=== PATIENT | female | born 1945 | race Two or more races ===

== ENCOUNTER → 2016-06-08 | Outpatient (CLI) | payer MEDICARE, OTHER | LOC: RAD 16:03 | PROVIDERS: ATTEND Internal Medicine | DX: C34.12 Malignant neoplasm of upper lobe, left bronchus or lung (principal) | CPT/HCPCS: 78815; A9552 ==

== ENCOUNTER → 2016-08-18 | Outpatient (CLI) | payer MEDICARE, OTHER ==
--- NOTE | 2016-08-18 15:52 | WOMENS IMAGING REPORT ---
EXAM DESCRIPTION: BILAT SCREENING MAMMO W/CAD COMPLETED DATE/TIME: 08/18/2016 1:53 pm REASON FOR STUDY: ROUTINE SCREEENING; Z12.31 Z12.31 ENCNTR SCREEN MAMMOGRAM FOR MALIGNANT NEOPLASM OF RADHA COMPARISON: 02/17/2011 TECHNIQUE: Standard craniocaudal and mediolateral oblique views of each breast recorded using Weevea l acquisition. LIMITATIONS: None. FINDINGS: Findings present which are benign by mammographic criteria. No suspicious masses, calcifi cations or architectural distortion. Pertinent benign findings: Benign left breast calcifications Read with the assistance of CAD. .[facility] - R2 Cenova Version 1.3 .[facility] Imaging - R2 Cenova Version 1.3 .[facility] Imaging - R2 Cenova Version 2.4 .[facility] - R2 Cenova Version 2.4 .[facility] - R2 Organ Recovery Coordinator Version 9.2 Benign mammographic findings may include one or more of the following: Smooth masses, popcorn/rim/co arse calcifications, asymmetries, post-procedure changes, and lesions with long-standing stability. IMPRESSION: BENIGN MAMMOGRAPHIC FINDINGS. BIRADS 2 BREAST DENSITY: d. The breasts are extremely dense, which lowers the sensitivity of mammography. BIRAD: 2 BENIGN FINDING(S) RECOMMENDATION: ROUTINE SCREENING Please consider bilateral screening tomosynthesis and August 2017 given extremely dense fibroglandular tissue COMMENT: The patient has been notified of the results by letter per SA requirements. Additional no tification policies are in place for contacting patient with suspicious or incomplete findings. Quality ID #[id number]: The [employer] recommends an annual screening mammogram for women aged 40 years or over. This facility utilizes a reminder system to ensure that all patients receive reminder letters, and/or direct phone calls for appointments. This includes reminders for routine scr eening mammograms, diagnostic mammograms, or other Breast Imaging Interventions when appropriate. Th is patient will be placed in the appropriate reminder system. The [employer] (ACR) has developed recommendations for screening MRI of the breast s in certain patient populations, to be used in conjunction with mammography. Breast MRI surveillanc e may be appropriate for women with more than 20% lifetime risk of developing breast cancer as deter mined by genetic testing, significant family history of the disease, or history of mantle radiation f or Hodgkins Disease. ACR Practice Guidelines 2008. TECHNICAL DOCUMENTATION: FINDING NUMBER: (1) ASSESSMENT: (1) JOB ID: [id number] [facility] [employer]- All Rights Reserved
== END ==
LOC: WI 13:12
PROVIDERS: ATTEND Internal Medicine
DX: Z12.31 Encounter for screening mammogram for malignant neoplasm of breast (principal)
CPT/HCPCS: 77067; G0202

== ENCOUNTER → 2016-08-31 | Outpatient (CLI) | payer MEDICARE, OTHER ==
--- NOTE | 2016-08-31 21:13 | RADIOLOGY REPORT (SQ) ---
EXAM DESCRIPTION: PET CT SKULL/THIGH COMPLETED DATE/TIME: 08/31/2016 6:49 pm REASON FOR STUDY: LUNG CANCER C34.12 MALIGNANT NEOPLASM OF UPPER LOBE, LEFT BRONCHUS OR PIEDAD COMPARISON: Prior PET-CT 01/13/2014, 02/17/2016, 06/10/2016 RADIONUCLIDE AND DOSE: 8.9 mCi F18 FDG The route of agent administration: Intravenous FASTING BLOOD SUGAR: 85 mg/dl CONTRAST TYPE AND DOSE: No CT contrast given. TECHNIQUE: Blood glucose level was verified. Above dose of FDG was injected intravenously. 2-D seg mented attenuation correction images were obtained from the base of the skull to the midthighs. Nonc ontrast CT images were obtained for attenuation correction and fusion with emission images. CT image s were performed without oral or intravenous contrast and are not sensitive for parenchymal lesions. A series of overlapping emission PET images were obtained. Images reviewed and manipulated at [facility] work station by the radiologist. Images stored on PACS. LIMITATIONS: None. FINDINGS: HEAD AND NECK: No areas of abnormal metabolic activity in the soft tissues of the head and neck. CHEST: A new mass is present in the right middle lobe, 3 x 2.5 cm in size with SUV 6.7. Increase in size of the nodule in the posterior right lower lobe now 1.4 x 1.7 cm in size with SUV 1. 7 (was 0.8 cm and non metabolic on 06/08/2016). Increase in size and activity of a 1.9 x 1.5 cm nodule in the superior segment right lower lobe with SUV 5.6 (was 1.4 x 0.8 cm in size SUV 4.3 on 06/08/2016). There is increase in metabolic activity along the right lower hilar region with SUV 7.3 (was SUV 4.6 on 06/08/2016). There is stable scarring in the right upper lobe at the intersection of the major and minor fissures with SUV 1.3 at baseline. There is a stable subcentimeter right upper anterior hilar lymph node with SUV of 2.8 unchanged from 06/08/2016. No pleural effusions. No worrisome left lung findings. ABDOMEN AND PELVIS: No areas of abnormal metabolic activity in the abdomen or pelvis. Expected physi ologic activity is present in the genitourinary system and bowel. PROXIMAL LOWER EXTREMITIES: No areas of abnormal metabolic activity in the soft tissues of the lower extremities. BONES: No abnormal metabolic activity in the visualized skeleton. ADDITIONAL CT FINDINGS: There is an intracranial aneurysm coil in the anterior communicating artery r egion, coronary artery calcification, degenerative disc changes lumbar spine, and atherosclerotic aor toiliac calcification. OTHER: Blood pool activity 1.8 SUV, liver activity 2.2 SUV IMPRESSION: Progression of disease in the right chest TECHNICAL DOCUMENTATION: JOB ID: [id number] [employer]- All Rights Reserved
== END ==
LOC: RAD 15:29
PROVIDERS: ATTEND Internal Medicine
DX: C34.12 Malignant neoplasm of upper lobe, left bronchus or lung (principal)
CPT/HCPCS: 78815; A9552

== ENCOUNTER → 2016-09-12 | Outpatient (CLI) | payer MEDICARE, OTHER ==
--- NOTE | 2016-09-12 10:53 | RADIOLOGY REPORT (SQ) ---
EXAM DESCRIPTION: CHEST PA/LATERAL COMPLETED DATE/TIME: 09/12/2016 10:08 am REASON FOR STUDY: COUGH COMPARISON: 01/27/2014 EXAM PARAMETERS: NUMBER OF VIEWS: two views TECHNIQUE: Digital Frontal and Lateral radiographic views of the chest acquired. RADIATION DOSE: NA LIMITATIONS: none FINDINGS: LUNGS AND PLEURA: There is the appearance of scarring in the right lung. Overall there is marked improvement compared to the earlier study. There is no acute pulmonary infiltrate or pleural effusion. MEDIASTINUM AND HILAR STRUCTURES: No masses or contour abnormalities. HEART AND VASCULAR STRUCTURES: Heart normal size. No evidence for failure. BONES: No acute findings. HARDWARE: None in the chest. OTHER: No other significant finding. IMPRESSION: There appears to be scarring in the right mid lung with dramatic improvement compared to the study 2013. TECHNICAL DOCUMENTATION: JOB ID: [id number] [employer]- All Rights Reserved
== END ==
LOC: OD 09:43
PROVIDERS: ATTEND Internal Medicine
DX: R05 Cough (principal)
CPT/HCPCS: 71020

== ENCOUNTER → 2016-12-14 | Outpatient (CLI) | payer MEDICARE, OTHER ==
--- NOTE | 2016-12-15 08:45 | RADIOLOGY REPORT (SQ) ---
EXAM DESCRIPTION: PET CT SKULL/THIGH COMPLETED DATE/TIME: 12/14/2016 8:04 pm REASON FOR STUDY: LUNG CANCER C34.12 MALIGNANT NEOPLASM OF UPPER LOBE, LEFT BRONCHUS OR PIEDAD COMPARISON: 08/31/2016 RADIONUCLIDE AND DOSE: 10.8 mCi F18 FDG The route of agent administration: Intravenous FASTING BLOOD SUGAR: 88 mg/dl CONTRAST TYPE AND DOSE: No CT contrast given. TECHNIQUE: Blood glucose level was verified. Above dose of FDG was injected intravenously. 2-D seg mented attenuation correction images were obtained from the base of the skull to the midthighs. Nonc ontrast CT images were obtained for attenuation correction and fusion with emission images. CT image s were performed without oral or intravenous contrast and are not sensitive for parenchymal lesions. A series of overlapping emission PET images were obtained. Images reviewed and manipulated at [facility] work station by the radiologist. Images stored on PACS. LIMITATIONS: None. FINDINGS: HEAD AND NECK: No areas of abnormal metabolic activity in the soft tissues of the head and neck. CHEST: Middle lobe mass has increased in size now 4.6 x 4.2 cm and 12 SUV. Previously described nodu les in the right lower lobe have all increased in size and are hypermetabolic. Stable increased meta bolic activity right lower hilum. No bulky adenopathy. ABDOMEN AND PELVIS: New hypermetabolic lesion measuring just over 1 cm in the dome of the liver measu ring 5.8 SUV. PROXIMAL LOWER EXTREMITIES: No areas of abnormal metabolic activity in the soft tissues of the lower extremities. BONES: No abnormal metabolic activity in the visualized skeleton. ADDITIONAL CT FINDINGS: No additional significant findings on the noncontrast CT images. OTHER: No other significant findings. IMPRESSION: 1. Disease progression in the chest. 2. New liver metastasis. TECHNICAL DOCUMENTATION: JOB ID: [id number] [employer]- All Rights Reserved
== END ==
LOC: RAD 15:52
PROVIDERS: ATTEND Physician Assistant
DX: C34.12 Malignant neoplasm of upper lobe, left bronchus or lung (principal); C78.7 Secondary malignant neoplasm of liver and intrahepatic bile duct
CPT/HCPCS: 78815; A9552

== ENCOUNTER 2016-12-24 08:44 | Day surgery (SDC) | payer MEDICARE, OTHER ==
[2016-12-24 09:19] LABS: HEMATOCRIT 34.4 % (36.0-47.0); HEMOGLOBIN 11.5 g/dL (12.0-15.5); HGB HCT DIFFERENCE 0.1; MEAN CORPUSCULAR HEMOGLOBIN 32.3 pg (27.0-33.4); MEAN CORPUSCULAR HGB CONC 33.5 g/dL (32.0-36.0); MEAN CORPUSCULAR VOLUME 96 fl (80-97); RED BLOOD COUNT 3.58 10^6/uL (3.72-5.28); RED CELL DISTRIBUTION WIDTH 14.3 % (11.5-14.0); WHITE BLOOD COUNT 4.3 10^3/uL (4.0-10.5)
[2016-12-24 09:29] LABS: PARTIAL THROMBOPLASTIN TIME 29.5 SEC (23.5-35.8); PROTHROMBIN TIME 11.7 SEC (11.4-15.4)
[2016-12-24 09:41] LABS: BLOOD UREA NITROGEN 21 mg/dL (7-20); CREATININE RESULT 0.95 mg/dL (0.52-1.25)
[2016-12-24] MEDS ORDERED: FENTANYL CITRATE INJ/PF 100 MCG/2 ML AMPUL ONE (10:39)
[2016-12-24] MEDS ORDERED: MIDAZOLAM 2 MG/2 ML INJ ONE (10:39)
--- NOTE | 2016-12-24 12:02 | RADIOLOGY REPORT (SQ) ---
EXAM DESCRIPTION: CT BIOPSY LUNG/MEDIASTINUM; CT NEEDLE PLACEMENT COMPLETED DATE/TIME: 12/24/2016 11:34 am; 12/24/2016 11:33 am REASON FOR STUDY: MALIGNANT NEOPLASM OF UPPER LOBE C34.12 MALIGNANT NEOPLASM OF UPPER LOBE, LEFT BR ONCHUS OR PIEDAD Z79.01 [facility] (CURRENT) USE OF ANTICOAGULANTS COMPARISON: PET-CT 12/14/2016 TECHNIQUE: CT guided biopsy of the anterior right upper lobe performed with conscious sedation. CT Fluoroscopy Time: 5.[address] scanners at this facility use dose modulation, iterative reconstruction, and/or weight based d osing when appropriate to reduce radiation dose to as low as reasonably achievable (ALARA). [facility]: Dose Right [facility]: CareDose [facility]: Dose Right [facility]: Teradose 4D [facility]: [employer] RADIATION DOSE: mGy. FINDINGS: The procedure was discussed with the patient and the patient agreed to the procedure. Prio r to the procedure, a time out was performed to verify the patient's identity and planned procedure. IV sedation was administered and physician direction by the registered nurse using 1 milligrams of Ve rsed and 50 micrograms of fentanyl. Physiologic monitoring was provided before, during, and after sed ation. The total sedation time was 30 minutes. Documentation face to face time, the performing proceduralist, spent monitoring the patient: [address] scanning was performed to localize the percutaneous site for the biopsy approach. After sterile skin prep and local lidocaine for skin and deep tissue anesthesia, a coaxial biopsy nee dle was used to obtain multiple cores of tissue. The biopsy tissue was submitted to the lab in forma luis felipe. There were no immediate complications. Postprocedure limited CT imaging demonstrates no pneumot horax. Pathology is pending at the time of dictation. IMPRESSION: CT GUIDED BIOPSY OF THE ANTERIOR RIGHT UPPER LOBE MASS PERFORMED WITHOUT IMMEDIATE COMPL ICATION. PATHOLOGY PENDING. COMMENT: Quality ID 145: Final reports for procedures using fluoroscopy that document radiation exp osure indices, or exposure time and number of fluorographic images (if radiation exposure indices are not available) Patient medication list reviewed: Yes- Quality ID# [id number]:Eligible professional attests to documenting i n the medical record they obtained, updated, or reviewed the patient's current medications.. TECHNICAL DOCUMENTATION: JOB ID: [id number] Quality ID# [id number]: Final reports with documentation of one or more dose reduction techniques (e.g., Aut omated exposure control, adjustment of the mA and/or kV according to patient size, use of iterative r econstruction technique) 2010 [employer]- All Rights Reserved
--- NOTE | 2016-12-24 12:02 | RADIOLOGY REPORT (SQ) ---
EXAM DESCRIPTION: CT BIOPSY LUNG/MEDIASTINUM; CT NEEDLE PLACEMENT COMPLETED DATE/TIME: 12/24/2016 11:34 am; 12/24/2016 11:33 am REASON FOR STUDY: MALIGNANT NEOPLASM OF UPPER LOBE C34.12 MALIGNANT NEOPLASM OF UPPER LOBE, LEFT BR ONCHUS OR PIEDAD Z79.01 [facility] (CURRENT) USE OF ANTICOAGULANTS COMPARISON: PET-CT 12/14/2016 TECHNIQUE: CT guided biopsy of the anterior right upper lobe performed with conscious sedation. CT Fluoroscopy Time: 5.[address] scanners at this facility use dose modulation, iterative reconstruction, and/or weight based d osing when appropriate to reduce radiation dose to as low as reasonably achievable (ALARA). [facility]: Dose Right [facility]: CareDose [facility]: Dose Right [facility]: Teradose 4D [facility]: [employer] RADIATION DOSE: mGy. FINDINGS: The procedure was discussed with the patient and the patient agreed to the procedure. Prio r to the procedure, a time out was performed to verify the patient's identity and planned procedure. IV sedation was administered and physician direction by the registered nurse using 1 milligrams of Ve rsed and 50 micrograms of fentanyl. Physiologic monitoring was provided before, during, and after sed ation. The total sedation time was 30 minutes. Documentation face to face time, the performing proceduralist, spent monitoring the patient: [address] scanning was performed to localize the percutaneous site for the biopsy approach. After sterile skin prep and local lidocaine for skin and deep tissue anesthesia, a coaxial biopsy nee dle was used to obtain multiple cores of tissue. The biopsy tissue was submitted to the lab in forma luis felipe. There were no immediate complications. Postprocedure limited CT imaging demonstrates no pneumot horax. Pathology is pending at the time of dictation. IMPRESSION: CT GUIDED BIOPSY OF THE ANTERIOR RIGHT UPPER LOBE MASS PERFORMED WITHOUT IMMEDIATE COMPL ICATION. PATHOLOGY PENDING. COMMENT: Quality ID 145: Final reports for procedures using fluoroscopy that document radiation exp osure indices, or exposure time and number of fluorographic images (if radiation exposure indices are not available) Patient medication list reviewed: Yes- Quality ID# [id number]:Eligible professional attests to documenting i n the medical record they obtained, updated, or reviewed the patient's current medications.. TECHNICAL DOCUMENTATION: JOB ID: [id number] Quality ID# 436: Final reports with documentation of one or more dose reduction techniques (e.g., Aut omated exposure control, adjustment of the mA and/or kV according to patient size, use of iterative r econstruction technique) 2010 [email or web address]- All Rights Reserved
--- NOTE | 2016-12-24 12:03 | RADIOLOGY REPORT (SQ) ---
EXAM DESCRIPTION: CHEST SINGLE VIEW COMPLETED DATE/TIME: 12/24/2016 11:54 am REASON FOR STUDY: POST RIGHT LUNG BIOPSY COMPARISON: LUNG BIOPSY EARLIER TODAY, TWO-VIEW CHEST 09/12/2016 EXAM PARAMETERS: NUMBER OF VIEWS: One view. TECHNIQUE: Single frontal radiographic view of the chest acquired. RADIATION DOSE: NA LIMITATIONS: None. FINDINGS: LUNGS AND PLEURA: Film immediately post right anterior upper lobe mass biopsy. No right-s ided pneumothorax. Biopsied mass is projected over the right hilum. Stable scarring along the right minor fissure. No left pulmonary nodules or pleural effusion. No le ft pneumothorax. MEDIASTINUM AND HILAR STRUCTURES: No masses. Contour normal. HEART AND VASCULAR STRUCTURES: Heart normal in size. Normal vasculature. BONES: No acute findings. HARDWARE: None in the chest. OTHER: No other significant finding. IMPRESSION: No pneumothorax immediately post right lung biopsy. TECHNICAL DOCUMENTATION: JOB ID: [id number]
--- NOTE | 2016-12-24 14:07 | RADIOLOGY REPORT (SQ) ---
EXAM DESCRIPTION: CHEST SINGLE VIEW COMPLETED DATE/TIME: 12/24/2016 1:49 pm REASON FOR STUDY: S/P 2 HOUR RIGHT LUNG BIOPSY COMPARISON: 12/24/2016, 1152 hours Lung biopsy same date EXAM PARAMETERS: NUMBER OF VIEWS: One view. TECHNIQUE: Single frontal radiographic view of the chest acquired. RADIATION DOSE: NA LIMITATIONS: None. FINDINGS: LUNGS AND PLEURA: 2 hours post right lung biopsy. No pneumothorax. No pleural effusion. Stable right lung mass projected over the hilum with scarring at the minor fissure. Left hemithorax unremarkable. MEDIASTINUM AND HILAR STRUCTURES: Right hilar/ anterior upper lobe mass HEART AND VASCULAR STRUCTURES: Heart normal in size. Normal vasculature. BONES: No acute findings. HARDWARE: None in the chest. OTHER: No other significant finding. IMPRESSION: No pneumothorax 2 hours post right lung biopsy TECHNICAL DOCUMENTATION: JOB ID: [id number]
[2016-12-24 14:11] VITALS: BP 138/77
== END 2016-12-24 14:00 | disposition home or self-care (01) ==
LOC: RAD 08:44
PROVIDERS: ATTEND Internal Medicine
PROC: 0BBC3ZX Excision of Right Upper Lung Lobe, Percutaneous Approach, Diagnostic (ICD-10-PCS; principal; 2016-12-24)
DX: C34.12 Malignant neoplasm of upper lobe, left bronchus or lung (principal); Z79.01 Long term (current) use of anticoagulants; Z79.899 Other long term (current) drug therapy
CPT/HCPCS: 36415; 84520; 82565; 85027; 85610; 85730; 88342 ×2; 88341 ×2; 88305 ×2; 71010; 77012; 32405; J2250; J3010

== ENCOUNTER → 2017-01-05 | Outpatient (CLI) | payer MEDICARE, OTHER ==
--- NOTE | 2017-01-05 17:01 | RADIOLOGY REPORT (SQ) ---
EXAM DESCRIPTION: FOOT LEFT COMPLETE COMPLETED DATE/TIME: 01/05/2017 4:49 pm REASON FOR STUDY: PAIN IN LEFT FOOT COMPARISON: None. NUMBER OF VIEWS: Three views. TECHNIQUE: AP, lateral and oblique radiographic images acquired of the left foot. LIMITATIONS: None. FINDINGS: MINERALIZATION: Normal. BONES: No acute fracture or dislocation. No worrisome bone lesions. Moderate-sized dorsal and plant ar calcaneal spurs JOINTS: Osteoarthritis with joint space narrowing at the 1st metatarsophalangeal joint. SOFT TISSUES: No soft tissue swelling. No foreign body. OTHER: No other significant finding. IMPRESSION: No acute fracture. No lytic or blastic lesions. 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 TECHNICAL DOCUMENTATION: JOB ID: [id number] [employer]- All Rights Reserved
== END ==
LOC: RAD 16:35
PROVIDERS: ATTEND Internal Medicine Hematology & Oncology
DX: M79.672 Pain in left foot (principal)

== ENCOUNTER → 2017-02-20 | Outpatient (CLI) | payer MEDICARE, OTHER ==
--- NOTE | 2017-02-20 09:31 | RADIOLOGY REPORT (SQ) ---
EXAM DESCRIPTION: MRI HEAD COMBO COMPLETED DATE/TIME: 02/20/2017 8:24 am REASON FOR STUDY: LUNG CA (C34.12) C34.12 MALIGNANT NEOPLASM OF UPPER LOBE, LEFT BRONCHUS OR PIEDAD COMPARISON: October 2015 TECHNIQUE: Multiplanar imaging includes noncontrasted T1, T2, FLAIR, Diffusion with ADC map and post gadolinium contrast T1 sequences. Images stored on PACS. CONTRAST TYPE AND DOSE: 10 mL MultiHance RENAL FUNCTION: GFR > 60. LIMITATIONS: None. FINDINGS: ANATOMY: No anomalies. Normal vascular flow voids. Pituitary fossa normal. CSF SPACES: Atrophy-induced prominence of CSF spaces and ventricles. CEREBRUM: High-signal intensity lesions scattered throughout the white matter on FLAIR imaging with d istribution suggesting chronic micro-vascular ischemic change. No evidence of hemorrhage, mass, extra axial fluid collection or acute ischemic change. No enhancing lesions. POSTERIOR FOSSA: No signal alteration. No hemorrhage. No edema, masses, or mass effect. Internal red tory canals, cerebello-pontine angles, mastoids normal. No enhancing lesions. ORBITS: No masses. Globes normal. PARANASAL SINUSES: A mucosal polyp retention cyst is identified in the right maxillary antra. Remain ing paranasal sinuses are clear. DIFFUSION: Normal. No evidence of recent infarct. OTHER: No other significant finding. IMPRESSION: ATROPHY AND CHRONIC MICRO-VASCULAR ISCHEMIC CHANGES. OTHERWISE UNREMARKABLE MRI OF THE B RAIN WITHOUT AND WITH INTRAVENOUS GADOLINIUM CONTRAST. EVIDENCE OF ACUTE STROKE: NO. TECHNICAL DOCUMENTATION: JOB ID: [id number] [employer]- All Rights Reserved
--- NOTE | 2017-02-20 10:07 | RADIOLOGY REPORT (SQ) ---
EXAM DESCRIPTION: CT CHEST WITH COMPLETED DATE/TIME: 02/20/2017 8:42 am REASON FOR STUDY: LUNG CA (C34.12) C34.12 MALIGNANT NEOPLASM OF UPPER LOBE, LEFT BRONCHUS OR PIEDAD COMPARISON: PET-CT scan dated 12/14/[address] scan dated January 2014 TECHNIQUE: CT scan of the chest performed using helical scanning technique with dynamic intravenous contrast injection. Images reviewed with lung, soft tissue and bone windows. Reconstructed coronal and sagittal MPR images reviewed. All images stored on PACS. All CT scanners at this facility use dose modulation, iterative reconstruction, and/or weight based d osing when appropriate to reduce radiation dose to as low as reasonably achievable (ALARA). [facility]: Dose Right [facility]: CareDose [facility]: Dose Right [facility]: Teradose 4D [facility]: [employer] CONTRAST TYPE AND DOSE: 53 mL Isovue 370 RENAL FUNCTION: Creatinine 0.8 RADIATION DOSE: . LIMITATIONS: Which show FINDINGS: LUNGS AND PLEURA: A somewhat triangular spiculated mass is identified in the right mid michelle g field measuring 1.8 cm in greatest diameter which appears essentially unchanged as compared to the recent PET-CT scan. This area presumably represent scarring. Spiculated mass is identified in the ri ght lower lung field best seen on image number 53 measuring 2.1 cm in diameters and a 2nd smaller or spiculated mass is identified in the right lower lung field best seen on image number 59 measuring 1 .3 cm both of which show interval decrease in size. There is some pleural thickening in the right up per hemithorax anteriorly and anterior laterally consistent with scarring. No pleural effusions are i dentified. No pneumothorax is seen HILAR AND MEDIASTINAL STRUCTURES: The previously described mediastinal mass shows interval decrease i n size now measuring 3.1 x 2.2 cm in diameters. HEART AND VASCULAR STRUCTURES: No aneurysm or dissection. No central pulmonary emboli. Small perica rdial effusion is again identified. HARDWARE: None in the chest. UPPER ABDOMEN: See results under abdominal CT scan THYROID AND OTHER SOFT TISSUES: No masses. No adenopathy. BONES: No significant finding. OTHER: No other significant finding. IMPRESSION: Overall interval improvement in the mass lesions involving the right hemithorax as noted above. Other findings as noted above. TECHNICAL DOCUMENTATION: JOB ID: [id number] Quality ID # [id number]: Final reports with documentation of one or more dose reduction techniques (e.g., Au tomated exposure control, adjustment of the mA and/or kV according to patient size, use of iterative reconstruction technique) 2010 [employer]- All Rights Reserved
--- NOTE | 2017-02-20 10:19 | RADIOLOGY REPORT (SQ) ---
EXAM DESCRIPTION: CT ABD/PELVIS WITH IV ONLY COMPLETED DATE/TIME: 02/20/2017 8:42 am REASON FOR STUDY: LUNG CA (C34.12) C34.12 MALIGNANT NEOPLASM OF UPPER LOBE, LEFT BRONCHUS OR PIEDAD COMPARISON: PET-CT scan dated 12/14/2016 TECHNIQUE: CT scan of the abdomen and pelvis performed using helical scanning technique with dynamic intravenous contrast injection. No oral contrast. Images reviewed with lung, soft tissue, and bone windows. Reconstructed coronal and sagittal MPR images reviewed. Delayed images for evaluation of the urinary system also acquired. All images stored on PACS. All CT scanners at this facility use dose modulation, iterative reconstruction, and/or weight based d osing when appropriate to reduce radiation dose to as low as reasonably achievable (ALARA). [facility]: Dose Right [facility]: CareDose [facility]: Dose Right [facility]: Teradose 4D [facility]: [employer] CONTRAST TYPE AND DOSE: contrast/concentration: Isovue 370.00 mg/ml; Total Contrast Delivered: 53.0 ml; Total Saline Delivered: 65.0 ml RENAL FUNCTION: Creatinine 0.8 RADIATION DOSE: CT Rad equipment meets quality standard of care and radiation dose reduction techniq ues were employed. CTDIvol: 4.4 - 4.5 mGy. DLP: 593 mGy-cm.. LIMITATIONS: None. FINDINGS: LOWER CHEST: See results under chest CT scan LIVER: There is a tiny relative low density area in the right lobe of the liver best seen on image nu mber 13 which is in the same approximate anatomic site as the hypermetabolic lesion identified on the PET-CT scan. The appearance would suggest interval improvement from the previous study. No other h epatic mass lesions are identified. SPLEEN: Normal size. No focal lesions. PANCREAS: No masses. No significant calcifications. No adjacent inflammation or peripancreatic fluid collections. Pancreatic duct not dilated. GALLBLADDER: No identified stones by CT criteria. No inflammatory changes to suggest cholecystitis. There is some thickening of the gallbladder valenzuela with a focal calcification within the valenzuela of the gallbladder. No abnormal metabolic activity is identified on the previous PET-CT scan. ADRENAL GLANDS: No significant masses or asymmetry. RIGHT KIDNEY AND URETER: No solid masses. No significant calcifications. No hydronephrosis or hyd roureter. LEFT KIDNEY AND URETER: No solid masses. No significant calcifications. No hydronephrosis or hydr oureter. AORTA AND VESSELS: No aneurysm. There is some ectasia of the abdominal aorta and iliac vessels with vascular calcifications. No dissection. Renal arteries, SMA, celiac without stenosis. RETROPERITONEUM: No retroperitoneal adenopathy, hemorrhage or masses. BOWEL AND PERITONEAL CAVITY: No masses or inflammatory changes. No free fluid or peritoneal masses. APPENDIX: Normal. PELVIS: No mass. No free fluid. Normal bladder. ABDOMINAL WALL: No masses. No hernias. BONES: Degenerative changes are identified in the lower lumbar spine. OTHER: No other significant finding. IMPRESSION: Tiny relative low density area in the right lobe of the liver as noted above suggesting interval improvement in the previously described metastatic focus. No other significant intra-abdomi nal or pelvic abnormalities were identified. Other findings as noted above TECHNICAL DOCUMENTATION: JOB ID: [id number] Quality ID # 436: Final reports with documentation of one or more dose reduction techniques (e.g., Au tomated exposure control, adjustment of the mA and/or kV according to patient size, use of iterative reconstruction technique) 2010 [employer]- All Rights Reserved
== END ==
LOC: RAD 07:07
PROVIDERS: ATTEND Internal Medicine
DX: C34.12 Malignant neoplasm of upper lobe, left bronchus or lung (principal)
CPT/HCPCS: 70553; 71260; 74177

== ENCOUNTER → 2017-04-29 | Outpatient (CLI) | payer MEDICARE, OTHER ==
--- NOTE | 2017-04-29 09:30 | RADIOLOGY REPORT (SQ) ---
EXAM DESCRIPTION: CT CHEST WITH; CT ABD/PELVIS WITH IV ONLY COMPLETED DATE/TIME: 04/29/2017 8:52 am REASON FOR STUDY: LUNG CANCER C34.12 MALIGNANT NEOPLASM OF UPPER LOBE, LEFT BRONCHUS OR PIEDAD COMPARISON: None. CONTRAST TYPE AND DOSE: contrast/concentration: Isovue 370.00 mg/ml; Total Contrast Delivered: 53.0 ml; Total Saline Delivered: 65.0 ml RENAL FUNCTION: Creatinine 0.8 TECHNIQUE: CT scan of the chest performed using helical scanning technique with dynamic intravenous contrast injection. Images reviewed with lung, soft tissue and bone windows. Reconstructed coronal a nd sagittal MPR images reviewed. All images stored on PACS. CT scan of the abdomen and pelvis performed with intravenous and with oral contrastusing helical scan eula technique with dynamic intravenous contrast injection. Images reviewed with lung, soft tissue a nd bone windows. Reconstructed coronal and sagittal MPR images reviewed. Delayed images for evaluat ion of the urinary system also acquired and evaluated. All images stored on PACS. All CT scanners at this facility use dose modulation, iterative reconstruction, and/or weight based d osing when appropriate to reduce radiation dose to as low as reasonably achievable (ALARA). [facility]: Dose Right [facility]: CareDose [facility]: Dose Right [facility]: Teradose 4D [facility]: [employer] RADIATION DOSE: CT Rad equipment meets quality standard of care and radiation dose reduction techniq ues were employed. CTDIvol: 4.4 - 4.5 mGy. DLP: 575 mGy-cm. . LIMITATIONS: None. FINDINGS: CHEST: LUNGS AND PLEURA: Distortion in the right upper lung field. A small slightly spiculated mass posteri anette measures just over 1.3 cm, stable (image 59). Just above this, additional irregular opacities w ith slight associated distortion are once again noted and also look fairly stable in size. The large st measures just over 2 cm, generally less convex margins and overall less conspicuous in appearance (image 53). Along the right heart border, a previously noted 2 cm lesion looks less masslike ; regio nal soft tissue density with adjacent pleural thickening remains (image 64 and adjacent). Left lung clear without developing lesions. HILAR AND MEDIASTINAL STRUCTURES: Persistent soft tissue with slight distortion adjacent to the right hilum. As above, nearby mass along the right heart border is less conspicuous and less masslike in appearance today. No bulky adenopathy or developing mass or esophageal dilatation. HEART AND VASCULAR STRUCTURES: Cardiomegaly. Trace pericardial thickening, chronic. Ectatic aorta, ascending measuring up to 3.6 cm. No dissection. Great vessel origins are patent. Prominent centra l pulmonary arteries without clot detected. HARDWARE: None. THYROID AND OTHER SOFT TISSUES: No masses. No adenopathy. BONES: No significant finding. OTHER: No other significant finding. ABDOMEN AND PELVIS: LIVER: Normal size. No masses. No dilated ducts. SPLEEN: Normal size. No focal lesions. PANCREAS: No masses. No significant calcifications. No adjacent inflammation or peripancreatic fluid collections. Pancreatic duct not dilated. GALLBLADDER: Small calcifications and mild wall thickening, relatively chronic appearance. No develo ping duct dilatation. ADRENAL GLANDS: No significant masses or asymmetry. RIGHT KIDNEY AND URETER: No solid masses. No significant calcification. No hydronephrosis or hydroure ter. LEFT KIDNEY AND URETER: No solid masses. No significant calcification. No hydronephrosis or hydrouret er. AORTA AND VESSELS: Mild atherosclerosis. No arterial occlusion detected. No dissection or aneurysm. No gross venous clot. RETROPERITONEUM: No retroperitoneal adenopathy, hemorrhage or masses. BOWEL AND PERITONEAL CAVITY: No masses or inflammatory changes. No free fluid or peritoneal masses. APPENDIX: Normal. ABDOMINAL WALL: No masses. No hernias. PELVIS: No mass or free fluid. Normal bladder. BONES: Osteopenia. Spondylosis with pars defects at L4. Chronic bone island in the L3 vertebral bod y. OTHER: No other significant finding. IMPRESSION: 1. Stable to improved appearance of the chest. See description above. Chronic opaciti es remain, either stable in measurement or slightly less conspicuous. No new lesions are detected. 2. Stable abdominopelvic exam. No developing lesions. Chronic gallbladder changes. TECHNICAL DOCUMENTATION: JOB ID: [id number] Quality ID # 436: Final reports with documentation of one or more dose reduction techniques (e.g., Au tomated exposure control, adjustment of the mA and/or kV according to patient size, use of iterative reconstruction technique) 2010 [employer]- All Rights Reserved
== END ==
LOC: RAD 08:18
PROVIDERS: ATTEND Internal Medicine
DX: C34.12 Malignant neoplasm of upper lobe, left bronchus or lung (principal)
CPT/HCPCS: 71260; 74177

== ENCOUNTER → 2017-07-14 | Outpatient (CLI) | payer MEDICARE, OTHER ==
--- NOTE | 2017-07-14 09:14 | RADIOLOGY REPORT (SQ) ---
EXAM DESCRIPTION: CT CHEST WITH; CT ABD/PELVIS WITH IV ONLY COMPLETED DATE/TIME: 07/14/2017 8:06 am REASON FOR STUDY: LUNG CA (C34.12) C34.12 MALIGNANT NEOPLASM OF UPPER LOBE, LEFT BRONCHUS OR PIEDAD COMPARISON: PET-CT 02/17/2016, 12/14/2016 CT chest abdomen pelvis 02/20/2017, 04/29/2017 CONTRAST TYPE AND DOSE: contrast/concentration: Isovue 370.00 mg/ml; Total Contrast Delivered: 53.0 ml; Total Saline Delivered: 65.0 ml RENAL FUNCTION: Creatinine 1.1 TECHNIQUE: CT scan of the chest performed using helical scanning technique with dynamic intravenous contrast injection. Images reviewed with lung, soft tissue and bone windows. Reconstructed coronal a nd sagittal MPR images reviewed. All images stored on PACS. CT scan of the abdomen and pelvis performed with intravenous and without oral contrastusing helical s miriam technique with dynamic intravenous contrast injection. Images reviewed with lung, soft tissu e and bone windows. Reconstructed coronal and sagittal MPR images reviewed. Delayed images for eval uation of the urinary system also acquired and evaluated. All images stored on PACS. All CT scanners at this facility use dose modulation, iterative reconstruction, and/or weight based d osing when appropriate to reduce radiation dose to as low as reasonably achievable (ALARA). [facility]: Dose Right [facility]: CareDose [facility]: Dose Right [facility]: Teradose 4D [facility]: [employer] RADIATION DOSE: CT Rad equipment meets quality standard of care and radiation dose reduction techniq ues were employed. CTDIvol: 4.4 - 4.5 mGy. DLP: 581 mGy-cm. . LIMITATIONS: None. FINDINGS: CHEST: LUNGS AND PLEURA: A 1.4 x 1.1 cm stellate lesion is present along the superior aspect right minor fis sure, unchanged over the series of exams. This best shown on axial image 49 and coronal image 37. Soft tissues in the medial aspect of the right middle lobe on axial image 68 is less prominent than o n previous exams. Currently this measures 2.3 x 0.9 cm in size (was 3 x 2 cm on 04/29/2017, 3.1 x 2.2 cm on 02/20/2017). Nodules seen in the right lower lobe on 12/14/2016 are no longer present. No acute infiltrates. No pleural effusion. No pneumothorax. HILAR AND MEDIASTINAL STRUCTURES: No identified masses or abnormal nodes. HEART AND VASCULAR STRUCTURES: No aneurysm or dissection. No central pulmonary emboli. No pericardi al effusion. HARDWARE: None. THYROID AND OTHER SOFT TISSUES: No masses. No adenopathy. BONES: No significant finding. OTHER: No other significant finding. ABDOMEN AND PELVIS: LIVER: Normal size. No masses. No dilated ducts. SPLEEN: Normal size. No focal lesions. PANCREAS: No masses. No significant calcifications. No adjacent inflammation or peripancreatic fluid collections. Pancreatic duct not dilated. GALLBLADDER: Punctate calcifications in the gallbladder wall are stable, likely from adenomyosis ADRENAL GLANDS: No significant masses or asymmetry. RIGHT KIDNEY AND URETER: No solid masses. No significant calcification. No hydronephrosis or hydroure ter. LEFT KIDNEY AND URETER: No solid masses. No significant calcification. No hydronephrosis or hydrouret er. AORTA AND VESSELS: No aneurysm. No dissection. Renal arteries, SMA, celiac without stenosis. RETROPERITONEUM: No retroperitoneal adenopathy, hemorrhage or masses. BOWEL AND PERITONEAL CAVITY: No masses or inflammatory changes. No free fluid or peritoneal masses. APPENDIX: Normal. ABDOMINAL WALL: No masses. No hernias. PELVIS: No mass or free fluid. Normal bladder. Normal size female pelvic organs BONES: Stable small foci of bony sclerosis in the right femur greater trochanter, right innominate heidy ne near the SI joint and L4 vertebral body. Bilateral L4 spondylolysis with grade 1 anterolisthesis of L4 over L5, chronic. OTHER: No other significant finding. IMPRESSION: Treatment response, decrease in right middle lobe and right lower lobe disease compared to prior exams. Treatment response in the abdomen and pelvis, liver lesion seen on PET-CT 12/14/2016 is no longer iden tified. TECHNICAL DOCUMENTATION: JOB ID: [id number] Quality ID # 436: Final reports with documentation of one or more dose reduction techniques (e.g., Au tomated exposure control, adjustment of the mA and/or kV according to patient size, use of iterative reconstruction technique) 2010 [employer]- All Rights Reserved Reading location - IP/workstation name: [email or web address]
== END ==
LOC: RAD 07:33
PROVIDERS: ATTEND Physician Assistant Medical
DX: C34.12 Malignant neoplasm of upper lobe, left bronchus or lung (principal)
CPT/HCPCS: 71260; 74177

== ENCOUNTER → 2017-10-19 | Outpatient (CLI) | payer MEDICARE, OTHER ==
--- NOTE | 2017-10-19 11:33 | RADIOLOGY REPORT (SQ) ---
EXAM DESCRIPTION: CT CHEST WITH COMPLETED DATE/TIME: 10/19/2017 10:21 am REASON FOR STUDY: LUNG CA C34.12 MALIGNANT NEOPLASM OF UPPER LOBE, LEFT BRONCHUS OR PIEDAD COMPARISON: 07/14/2017 TECHNIQUE: CT scan of the chest performed using helical scanning technique with dynamic intravenous contrast injection. Images reviewed with lung, soft tissue and bone windows. Reconstructed coronal and sagittal MPR images reviewed. All images stored on PACS. All CT scanners at this facility use dose modulation, iterative reconstruction, and/or weight based d osing when appropriate to reduce radiation dose to as low as reasonably achievable (ALARA). [facility]: Dose Right [facility]: CareDose [facility]: Dose Right [facility]: Teradose 4D [facility]: [employer] CONTRAST TYPE AND DOSE: 49 cc Isovue 370 RENAL FUNCTION: Creatinine 1.5 RADIATION DOSE: Total exam DLP: 802.14 mGy. LIMITATIONS: None. FINDINGS: LUNGS AND PLEURA: Interval worsening in the appearance of the right lung since the previo us examination. The stellate spiculated mass along the superior aspect right minor fissure and has i ncreased in size and measures 1.7 cm x 1.3 cm on the current examination compared to 1.5 cm x 1.1 cm on the prior examination, axial image 48, series 6. The low attenuated mass in the medial aspect of the right lower lobe has increased in size. On the c urrent examination it measures approximately 3.0 cm x 2.0 cm, compared to 2.3 cm x 0.9 cm on the prio r examination. Interval increase in number of ill-defined nodular opacities in the right lung, particularly in the l ower lobe with some of the largest measure 1.4 cm New focal opacities in the anterior medial aspect of the left upper lobe and left lingula. No pneumothorax or pleural effusion. The central airways are clear. HILAR AND MEDIASTINAL STRUCTURES: Stable appearance. HEART AND VASCULAR STRUCTURES: Atherosclerotic changes involving the abdominal aorta. Stable mild d ilatation of the ascending thoracic aorta. No dissection. The central pulmonary arteries are promine nt in appearance which may be on the basis of underlying pulmonary hypertension, stable finding. Cor onary artery calcifications. No central pulmonary emboli. No pericardial effusion. HARDWARE: None in the chest. UPPER ABDOMEN: Please see see CT abdomen report. THYROID AND OTHER SOFT TISSUES: The visualized thyroid gland is stable in appearance. BONES: No significant finding. OTHER: No other significant finding. IMPRESSION: 1 Since the previous examination dated 07/14/2017, interval worsening in the appearance of the right lung with an increase in size of the previously demonstrated ill-defined spiculated masses , as well as new nodules particularly in the right lower lobe. 2. New small focal opacities in the left upper lobe and left lingula. 3. Additional stable findings as above. TECHNICAL DOCUMENTATION: JOB ID: [id number] Quality ID # 436: Final reports with documentation of one or more dose reduction techniques (e.g., Au tomated exposure control, adjustment of the mA and/or kV according to patient size, use of iterative reconstruction technique) 2010 [employer]- All Rights Reserved Reading location - IP/workstation name: [email or web address]
--- NOTE | 2017-10-19 12:15 | RADIOLOGY REPORT (SQ) ---
EXAM DESCRIPTION: CT ABD/PELVIS WITH IV ONLY COMPLETED DATE/TIME: 10/19/2017 10:21 am REASON FOR STUDY: LUNG CA C34.12 MALIGNANT NEOPLASM OF UPPER LOBE, LEFT BRONCHUS OR PIEDAD COMPARISON: 04/29/2017 TECHNIQUE: CT scan of the abdomen and pelvis performed using helical scanning technique with dynamic intravenous contrast injection. No oral contrast. Images reviewed with lung, soft tissue, and bone windows. Reconstructed coronal and sagittal MPR images reviewed. Delayed images for evaluation of the urinary system also acquired. All images stored on PACS. All CT scanners at this facility use dose modulation, iterative reconstruction, and/or weight based d osing when appropriate to reduce radiation dose to as low as reasonably achievable (ALARA). [facility]: Dose Right [facility]: CareDose [facility]: Dose Right [facility]: Teradose 4D [facility]: [employer] CONTRAST TYPE AND DOSE: contrast/concentration: Isovue 370.00 mg/ml; Total Contrast Delivered: 49.0 ml; Total Saline Delivered: 65.0 ml RENAL FUNCTION: Creatinine-1.5 RADIATION DOSE: CT Rad equipment meets quality standard of care and radiation dose reduction techniq ues were employed. CTDIvol: 4.4 - 4.5 mGy. DLP: 802 mGy-cm.. LIMITATIONS: None. FINDINGS: LOWER CHEST: Please see CT chest report. LIVER: Normal size. No masses. No dilated ducts. The hepatic and portal veins are patent. SPLEEN: Normal size. No focal lesions. PANCREAS: No masses. No significant calcifications. No adjacent inflammation or peripancreatic fluid collections. Pancreatic duct not dilated. GALLBLADDER: Stable gallstones and mild wall thickening. ADRENAL GLANDS: No significant masses or asymmetry. RIGHT KIDNEY AND URETER: Extrarenal pelvis on the right, normal anatomic variant. No solid masses. No significant calcifications. No hydronephrosis or hydroureter. LEFT KIDNEY AND URETER: Extrarenal pelvis on the left, normal anatomic variant. Stable too small to characterize hypoattenuated renal lesions, probably on a benign basis. No hydronephrosis or hydroure ter. AORTA AND VESSELS: Atherosclerotic changes involving the abdominal aorta and branch vessels. No aneu rysm. No dissection. Renal arteries, SMA, celiac without stenosis. RETROPERITONEUM: No retroperitoneal adenopathy, hemorrhage or masses. BOWEL AND PERITONEAL CAVITY: Constipation. No free fluid. APPENDIX: Normal. PELVIS: No mass. No free fluid. Normal bladder. ABDOMINAL WALL: Stable very tiny umbilical hernia. BONES: The osseous structures are stable in appearance. OTHER: No other significant finding. IMPRESSION: 1 No significant interval changes since the prior examination dated 04/29/2017. 2 Stable chronic gallbladder changes. TECHNICAL DOCUMENTATION: JOB ID: [id number] Quality ID # 436: Final reports with documentation of one or more dose reduction techniques (e.g., Au tomated exposure control, adjustment of the mA and/or kV according to patient size, use of iterative reconstruction technique) 2010 [employer]- All Rights Reserved Reading location - IP/workstation name: [email or web address]
== END ==
LOC: RAD 09:28
PROVIDERS: ATTEND Internal Medicine
DX: C34.12 Malignant neoplasm of upper lobe, left bronchus or lung (principal)
CPT/HCPCS: 71260; 74177; 82565

== ENCOUNTER → 2018-02-15 | Outpatient (CLI) | payer MEDICARE, OTHER ==
--- NOTE | 2018-02-15 10:53 | RADIOLOGY REPORT (SQ) ---
EXAM DESCRIPTION: CT CHEST WITH; CT ABD/PELVIS WITH IV ONLY COMPLETED DATE/TIME: 02/15/2018 10:18 am REASON FOR STUDY: LUNG CA C34.12 MALIGNANT NEOPLASM OF UPPER LOBE, LEFT BRONCHUS OR PIEDAD COMPARISON: CT chest abdomen pelvis 10/19/2017, 07/14/2017, 04/29/2017, 02/20/2017 CONTRAST TYPE AND DOSE: contrast/concentration: Isovue 350.00 mg/ml; Total Contrast Delivered: 53.0 ml; Total Saline Delivered: 65.0 ml RENAL FUNCTION: Creatinine 1.1 TECHNIQUE: CT scan of the chest performed using helical scanning technique with dynamic intravenous contrast injection. Images reviewed with lung, soft tissue and bone windows. Reconstructed coronal a nd sagittal MPR images reviewed. All images stored on PACS. CT scan of the abdomen and pelvis performed with intravenous and without oral contrastusing helical s miriam technique with dynamic intravenous contrast injection. Images reviewed with lung, soft tissu e and bone windows. Reconstructed coronal and sagittal MPR images reviewed. Delayed images for eval uation of the urinary system also acquired and evaluated. All images stored on PACS. All CT scanners at this facility use dose modulation, iterative reconstruction, and/or weight based d osing when appropriate to reduce radiation dose to as low as reasonably achievable (ALARA). [facility]: Dose Right [facility]: CareDose [facility]: Dose Right [facility]: Teradose 4D [facility]: [employer] RADIATION DOSE: CT Rad equipment meets quality standard of care and radiation dose reduction techniq ues were employed. CTDIvol: 4.4 - 4.5 mGy. DLP: 616 mGy-cm. . LIMITATIONS: None. FINDINGS: CHEST: LUNGS AND PLEURA: Stellate scar along the right middle lobe minor fissure is unchanged from multiple previous studies, currently 1.4 x 1.1 cm on axial image 49. Chronic consolidation in the medial aspect right middle lobe is unchanged from multiple previous stud ies, currently 2.6 x 1.3 cm in size. No acute infiltrates. No pleural effusion. No pneumothorax. No pleural effusions. HILAR AND MEDIASTINAL STRUCTURES: No identified masses or abnormal nodes. HEART AND VASCULAR STRUCTURES: Stable ectasia of ascending thoracic aorta, 3.7 cm in diameter. Stabl e coronary artery calcifications and mild cardiomegaly. No pericardial effusion. No central pulmona ry emboli HARDWARE: None in the chest. THYROID AND OTHER SOFT TISSUES: No worrisome masses. No adenopathy. BONES: No significant finding. ABDOMEN AND PELVIS: LIVER: Normal size. No masses. No dilated ducts. SPLEEN: Normal size. No focal lesions. PANCREAS: No masses. No significant calcifications. No adjacent inflammation or peripancreatic fluid collections. Pancreatic duct not dilated. GALLBLADDER: Stable gallbladder wall calcifications and mild gallbladder wall thickening. ADRENAL GLANDS: No significant masses or asymmetry. RIGHT KIDNEY AND URETER: No solid masses. No significant calcification. No hydronephrosis or hydroure ter. LEFT KIDNEY AND URETER: No solid masses. No significant calcification. No hydronephrosis or hydrouret er. AORTA AND VESSELS: No abdominal aortic aneurysm. Heavily calcified visceral artery origins. RETROPERITONEUM: No retroperitoneal adenopathy, hemorrhage or masses. BOWEL AND PERITONEAL CAVITY: No masses or inflammatory changes. No free fluid or peritoneal masses. Moderate stool throughout the colon APPENDIX: Normal. ABDOMINAL WALL: No masses. No hernias. PELVIS: No mass or free fluid. Normal bladder. Normal size female pelvic organs. BONES: No significant or acute findings. OTHER: No other significant finding. IMPRESSION: Stable CT of the chest abdomen and pelvis. Stable spiculated scarring along the right m inor fissure and chronic collapse in the medial segment right middle lobe. Airspace disease seen in the right lung 10/19/2017 is no longer present. No acute changes over the abd omen or pelvis TECHNICAL DOCUMENTATION: JOB ID: [id number] Quality ID # 436: Final reports with documentation of one or more dose reduction techniques (e.g., Au tomated exposure control, adjustment of the mA and/or kV according to patient size, use of iterative reconstruction technique) 2010 [employer]- All Rights Reserved Reading location - IP/workstation name: [email or web address]
== END ==
LOC: RAD 09:40
PROVIDERS: ATTEND Internal Medicine
DX: C34.12 Malignant neoplasm of upper lobe, left bronchus or lung (principal); J98.19 Other pulmonary collapse
CPT/HCPCS: 71260; 74177

== ENCOUNTER → 2018-05-28 | Outpatient (CLI) | payer MEDICARE, OTHER ==
--- NOTE | 2018-05-28 10:07 | RADIOLOGY REPORT (SQ) ---
EXAM DESCRIPTION: CT CHEST WITH COMPLETED DATE/TIME: 05/28/2018 9:28 am REASON FOR STUDY: MALIGNANT NEOPLASM OF UPPER LOBE, LEFT BRONCHUS OR LUNG C34.12 MALIGNANT NEOPLASM OF UPPER LOBE, LEFT BRONCHUS OR PIEDAD COMPARISON: 02/15/2018 TECHNIQUE: CT scan of the chest performed using helical scanning technique with dynamic intravenous contrast injection. Images reviewed with lung, soft tissue and bone windows. Reconstructed coronal and sagittal MPR and MIP images reviewed. All images stored on PACS. All CT scanners at this facility use dose modulation, iterative reconstruction, and/or weight based d osing when appropriate to reduce radiation dose to as low as reasonably achievable (ALARA). [facility]: Dose Right [facility]: CareDose [facility]: Dose Right [facility]: Teradose 4D [facility]: Curasight CONTRAST TYPE AND DOSE: See separate report of the same date. RENAL FUNCTION: See separate report. RADIATION DOSE: . LIMITATIONS: None. FINDINGS: LUNGS AND PLEURA: Stable bandlike scarring in the medial segment of the middle lobe and ri ght upper lobe along the minor fissure. Image 70 there is a 7 mm nodule which previously measured 5 mm along the minor fissure. Appearance is otherwise unchanged. HILAR AND MEDIASTINAL STRUCTURES: No identified masses or abnormal nodes. HEART AND VASCULAR STRUCTURES: No aneurysm or dissection. No central pulmonary emboli. No pericardi al effusion. HARDWARE: None in the chest. UPPER ABDOMEN: See separate report of the CT of the abdomen. THYROID AND OTHER SOFT TISSUES: No masses. No adenopathy. BONES: Nothing acute. OTHER: No other significant finding. IMPRESSION: Stable postsurgical/ radiation changes. Slight increase in size of a pulmonary nodule i n the right lung. TECHNICAL DOCUMENTATION: JOB ID: [id number] Quality ID # [id number]: Final reports with documentation of one or more dose reduction techniques (e.g., Au tomated exposure control, adjustment of the mA and/or kV according to patient size, use of iterative reconstruction technique) 2010 [employer]- All Rights Reserved Reading location - IP/workstation name: [email or web address]
--- NOTE | 2018-05-28 10:41 | RADIOLOGY REPORT (SQ) ---
EXAM DESCRIPTION: CT ABD/PELVIS WITH IV ONLY COMPLETED DATE/TIME: 05/28/2018 9:28 am REASON FOR STUDY: MALIGNANT NEOPLASM OF UPPER LOBE, LEFT BRONCHUS OR LUNG C34.12 MALIGNANT NEOPLASM OF UPPER LOBE, LEFT BRONCHUS OR PIEDAD COMPARISON: None. TECHNIQUE: CT scan of the abdomen and pelvis performed using helical scanning technique with dynamic intravenous contrast injection. No oral contrast. Images reviewed with lung, soft tissue, and bone windows. Reconstructed coronal and sagittal MPR images reviewed. Delayed images for evaluation of the urinary system also acquired. All images stored on PACS. All CT scanners at this facility use dose modulation, iterative reconstruction, and/or weight based d osing when appropriate to reduce radiation dose to as low as reasonably achievable (ALARA). [facility]: Dose Right [facility]: CareDose [facility]: Dose Right [facility]: Teradose 4D [facility]: Vivoxid CONTRAST TYPE AND DOSE: contrast/concentration: Isovue 350.00 mg/ml; Total Contrast Delivered: 51.0 ml; Total Saline Delivered: 65.0 ml RENAL FUNCTION: Creatinine 1.4 RADIATION DOSE: CT Rad equipment meets quality standard of care and radiation dose reduction techniq ues were employed. CTDIvol: 4.4 - 4.5 mGy. DLP: 582 mGy-cm.. LIMITATIONS: None. FINDINGS: LOWER CHEST: See separate report of the CT of the chest. LIVER: Normal size. No masses. No dilated ducts. SPLEEN: Normal size. No focal lesions. PANCREAS: No masses. No significant calcifications. No adjacent inflammation or peripancreatic fluid collections. Pancreatic duct not dilated. GALLBLADDER: Gallstones. No inflammatory changes to suggest cholecystitis. ADRENAL GLANDS: No significant masses or asymmetry. RIGHT KIDNEY AND URETER: No solid masses. No significant calcifications. No hydronephrosis or hyd roureter. LEFT KIDNEY AND URETER: No solid masses. No significant calcifications. No hydronephrosis or hydr oureter. AORTA AND VESSELS: No aneurysm. RETROPERITONEUM: No retroperitoneal adenopathy, hemorrhage or masses. BOWEL AND PERITONEAL CAVITY: No masses or inflammatory changes. No free fluid or peritoneal masses. APPENDIX: Not visualized. PELVIS: No mass. No free fluid. Normal bladder. ABDOMINAL WALL: No masses. No hernias. BONES: Stable well-circumscribed sclerotic lesion L3 vertebral body most likely a bone island. OTHER: No other significant finding. IMPRESSION: No evidence of metastatic disease. TECHNICAL DOCUMENTATION: JOB ID: [id number] Quality ID # [id number]: Final reports with documentation of one or more dose reduction techniques (e.g., Au tomated exposure control, adjustment of the mA and/or kV according to patient size, use of iterative reconstruction technique) 2010 [employer]- All Rights Reserved Reading location - IP/workstation name: [facility]
--- NOTE | 2018-05-28 10:47 | RADIOLOGY REPORT (SQ) ---
EXAM DESCRIPTION: MRI HEAD COMBO COMPLETED DATE/TIME: 05/28/2018 10:24 am REASON FOR STUDY: MALIGNANT NEOPLASM OF UPPER LOBE, LEFT BRONCHUS OR LUNG C34.12 MALIGNANT NEOPLASM OF UPPER LOBE, LEFT BRONCHUS OR PIEDAD COMPARISON: 02/20/2017 TECHNIQUE: Multiplanar imaging includes noncontrasted T1, T2, FLAIR, Diffusion with ADC map and post gadolinium contrast T1 sequences. Images stored on PACS. CONTRAST TYPE AND DOSE: 9.0 mL Dotarem RENAL FUNCTION: Not indicated. ACR Type II contrast agent associated with few, if any, unconfounded cases of NSF LIMITATIONS: Patient motion. FINDINGS: ANATOMY: No anomalies. Normal vascular flow voids. Pituitary fossa normal. CSF SPACES: Atrophy-induced prominence of CSF spaces and ventricles. CEREBRUM: L lacunar infarcts basal ganglia. High-signal intensity lesions scattered throughout the w norberto matter on FLAIR imaging with distribution suggesting chronic micro-vascular ischemic change. No evidence of hemorrhage, mass, extraaxial fluid collection or acute ischemic change. No enhancing lesi ons. POSTERIOR FOSSA: No signal alteration. No hemorrhage. No edema, masses, or mass effect. Internal red tory canals, cerebello-pontine angles, mastoids normal. No enhancing lesions. ORBITS: No masses. Globes normal. PARANASAL SINUSES: No fluid levels. DIFFUSION: Normal. No evidence of recent infarct. OTHER: No other significant finding. IMPRESSION: No evidence of metastatic disease. EVIDENCE OF ACUTE STROKE: NO. TECHNICAL DOCUMENTATION: JOB ID: [id number] [employer]- All Rights Reserved Reading location - IP/workstation name: [email or web address]
== END ==
LOC: RAD 08:39
PROVIDERS: ATTEND Internal Medicine
DX: C34.12 Malignant neoplasm of upper lobe, left bronchus or lung (principal)
CPT/HCPCS: 82565; 70553; 71260; 74177; A9576

== ENCOUNTER → 2018-08-05 | Outpatient (CLI) | payer MEDICARE, OTHER ==
--- NOTE | 2018-08-05 12:05 | RADIOLOGY REPORT (SQ) ---
EXAM DESCRIPTION: CT CHEST WITH COMPLETED DATE/TIME: 08/05/2018 9:18 am REASON FOR STUDY: LUNG CA C34.12 MALIGNANT NEOPLASM OF UPPER LOBE, LEFT BRONCHUS OR PIEDAD COMPARISON: 05/28/2018. TECHNIQUE: CT scan of the chest performed using helical scanning technique with dynamic intravenous contrast injection. Images reviewed with lung, soft tissue and bone windows. Reconstructed coronal and sagittal MPR and MIP images reviewed. All images stored on PACS. All CT scanners at this facility use dose modulation, iterative reconstruction, and/or weight based d osing when appropriate to reduce radiation dose to as low as reasonably achievable (ALARA). [facility]: Dose Right [facility]: CareDose [facility]: Dose Right [facility]: Teradose 4D [facility]: Index CONTRAST TYPE AND DOSE: See separate report of the same date. RENAL FUNCTION: See separate report. RADIATION DOSE: . LIMITATIONS: None. FINDINGS: LUNGS AND PLEURA: There is a new 2.9 x 2.4 cm nodule in the middle lobe. Image 89 there i s a new 7 mm nodule in the right lower lobe. HILAR AND MEDIASTINAL STRUCTURES: Image 64 there is a new 8 mm nodule in the right upper lobe. Image 59 new smaller nodule in the right upper lobe HEART AND VASCULAR STRUCTURES: No aneurysm or dissection. No central pulmonary emboli. No pericardi al effusion. HARDWARE: None in the chest. UPPER ABDOMEN: See separate report of the CT of the abdomen. THYROID AND OTHER SOFT TISSUES: No masses. No adenopathy. BONES: No significant finding. OTHER: No other significant finding. IMPRESSION: New nodules worrisome for metastatic disease in the right lung. Consider correlation wi PET-CT. TECHNICAL DOCUMENTATION: JOB ID: [id number] Quality ID # 436: Final reports with documentation of one or more dose reduction techniques (e.g., Au tomated exposure control, adjustment of the mA and/or kV according to patient size, use of iterative reconstruction technique) 2010 [employer]- All Rights Reserved Reading location - IP/workstation name: [email or web address]
--- NOTE | 2018-08-05 12:09 | RADIOLOGY REPORT (SQ) ---
EXAM DESCRIPTION: CT ABD/PELVIS WITH IV ONLY COMPLETED DATE/TIME: 08/05/2018 9:18 am REASON FOR STUDY: LUNG CA C34.12 MALIGNANT NEOPLASM OF UPPER LOBE, LEFT BRONCHUS OR PIEDAD COMPARISON: None. TECHNIQUE: CT scan of the abdomen and pelvis performed using helical scanning technique with dynamic intravenous contrast injection. No oral contrast. Images reviewed with lung, soft tissue, and bone windows. Reconstructed coronal and sagittal MPR images reviewed. Delayed images for evaluation of the urinary system also acquired. All images stored on PACS. All CT scanners at this facility use dose modulation, iterative reconstruction, and/or weight based d osing when appropriate to reduce radiation dose to as low as reasonably achievable (ALARA). [facility]: Dose Right [facility]: CareDose [facility]: Dose Right [facility]: Teradose 4D [facility]: RegainGo CONTRAST TYPE AND DOSE: contrast/concentration: Isovue 350.00 mg/ml; Total Contrast Delivered: 53.0 ml; Total Saline Delivered: 65.0 ml RENAL FUNCTION: GFR > 60. RADIATION DOSE: CT Rad equipment meets quality standard of care and radiation dose reduction techniq ues were employed. CTDIvol: 4.4 - 4.5 mGy. DLP: 574 mGy-cm.. LIMITATIONS: None. FINDINGS: LOWER CHEST: See separate report of the CT of the chest. LIVER: Normal size. No masses. No dilated ducts. SPLEEN: Normal size. No focal lesions. PANCREAS: No masses. No significant calcifications. No adjacent inflammation or peripancreatic fluid collections. Pancreatic duct not dilated. GALLBLADDER: Gallstones. No inflammatory changes to suggest cholecystitis. ADRENAL GLANDS: No significant masses or asymmetry. RIGHT KIDNEY AND URETER: No solid masses. No significant calcifications. No hydronephrosis or hyd roureter. LEFT KIDNEY AND URETER: No solid masses. No significant calcifications. No hydronephrosis or hydr oureter. AORTA AND VESSELS: No aneurysm. RETROPERITONEUM: No retroperitoneal adenopathy, hemorrhage or masses. BOWEL AND PERITONEAL CAVITY: No masses or inflammatory changes. No free fluid or peritoneal masses. APPENDIX: Not visualized. PELVIS: No mass. No free fluid. Normal bladder. ABDOMINAL WALL: No masses. No hernias. BONES: No significant or acute findings. OTHER: No other significant finding. IMPRESSION: No evidence of metastatic disease. TECHNICAL DOCUMENTATION: JOB ID: [id number] Quality ID # 436: Final reports with documentation of one or more dose reduction techniques (e.g., Au tomated exposure control, adjustment of the mA and/or kV according to patient size, use of iterative reconstruction technique) 2010 [employer]- All Rights Reserved Reading location - IP/workstation name: [facility]FF[facility] PARTNERSSelene
== END ==
LOC: RAD 09:21
PROVIDERS: ATTEND Internal Medicine
DX: C34.12 Malignant neoplasm of upper lobe, left bronchus or lung (principal)
CPT/HCPCS: 71260; 74177

== ENCOUNTER → 2018-09-19 | Outpatient (CLI) | payer MEDICARE, OTHER ==
--- NOTE | 2018-09-20 09:08 | RADIOLOGY REPORT (SQ) ---
EXAM DESCRIPTION: PET CT SKULL/THIGH COMPLETED DATE/TIME: 09/19/2018 8:01 pm REASON FOR STUDY: (C34.12)MALIGNANT NEOPLASM OF UPPER LOBE, LEFT BRONCHUS OR LUNG C34.12 MALIGNANT NEOPLASM OF UPPER LOBE, LEFT BRONCHUS OR PIEDAD COMPARISON: CT chest abdomen pelvis 08/05/2018, 02/15/2018 PET-CT 12/14/2016 RADIONUCLIDE AND DOSE: 11 mCi F18 FDG The route of agent administration: Intravenous FASTING BLOOD SUGAR: 97 mg/dl CONTRAST TYPE AND DOSE: No CT contrast given. TECHNIQUE: Blood glucose level was verified. Above dose of FDG was injected intravenously. 2-D seg mented attenuation correction images were obtained from the base of the skull to the midthighs. Nonc ontrast CT images were obtained for attenuation correction and fusion with emission images. CT image s were performed without oral or intravenous contrast and are not sensitive for parenchymal lesions. A series of overlapping emission PET images were obtained. Images reviewed and manipulated at [facility] work station by the radiologist. Images stored on PACS. LIMITATIONS: None. FINDINGS: HEAD AND NECK: No areas of abnormal metabolic activity in the soft tissues of the head and neck. CHEST: Metabolically active lesions in the right chest are as follows: In the medial aspect of the right middle lobe, a 2.7 x 2.4 cm area of consolidation/soft tissue is pr esent with SUV of 8.2 on axial image 92 (was 2.9 x 2.4 cm in size on 08/05/2018 CT chest, prior PET-CT 12/14/2016 this mass was 4.6 x 4.2 cm with SUV of 12). At the right hilum, an 8 x 5 mm lymph node is present on axial image 84 with SUV of 3.2 Not metabolically active findings in the right chest as follows: Stellate scar along the right minor fissure axial image 81 7 mm nodule right lower lobe image 84 6 mm nodule right lower lobe image 89 Multiple small subcentimeter nodules in the posterior right costophrenic sulcus on axial images 106-1 10 ABDOMEN AND PELVIS: No areas of abnormal metabolic activity in the abdomen or pelvis. Expected physi ologic activity is present in the genitourinary system and bowel. PROXIMAL LOWER EXTREMITIES: No areas of abnormal metabolic activity in the soft tissues of the lower extremities. BONES: No abnormal metabolic activity in the visualized skeleton. ADDITIONAL CT FINDINGS: Cerebral aneurysm coil, gallstones in the gallbladder OTHER: Liver background activity 2.1 SUV. Blood pool background activity 1.8 SUV IMPRESSION: Hypermetabolic soft tissue mass, medial aspect right middle lobe is smaller than on CT c hest 08/05/2018 and smaller and less metabolically active than on PET-CT 12/14/2016. Small subcentimeter right hilar metabolically active lymph node. TECHNICAL DOCUMENTATION: JOB ID: [id number] [employer]- All Rights Reserved Reading location - IP/workstation name: [email or web address]
== END ==
LOC: RAD 14:47
PROVIDERS: ATTEND Internal Medicine
DX: C34.12 Malignant neoplasm of upper lobe, left bronchus or lung (principal)
CPT/HCPCS: 78815; A9552

== ENCOUNTER → 2018-11-23 | Outpatient (CLI) | payer MEDICARE, OTHER ==
--- NOTE | 2018-11-23 08:47 | RADIOLOGY REPORT (SQ) ---
EXAM DESCRIPTION: CT CHEST WITH; CT ABD/PELVIS WITH IV ONLY COMPLETED DATE/TIME: 11/23/2018 8:25 am REASON FOR STUDY: LUNG CA (C34.12) C34.12 MALIGNANT NEOPLASM OF UPPER LOBE, LEFT BRONCHUS OR PIEDAD CONTRAST TYPE AND DOSE: contrast/concentration: Isovue 350.00 mg/ml; Total Contrast Delivered: 51.0 ml; Total Saline Delivered: 65.0 ml RENAL FUNCTION: Creatinine 1.5 COMPARISON: None. TECHNIQUE: CT scan of the chest performed using helical scanning technique with dynamic intravenous contrast injection. Images reviewed with lung, soft tissue and bone windows. Reconstructed coronal a nd sagittal MPR images reviewed. All images stored on PACS. All CT scanners at this facility use dose modulation, iterative reconstruction, and/or weight based d osing when appropriate to reduce radiation dose to as low as reasonably achievable (ALARA). [facility]: Dose Right [facility]: CareDose [facility]: Dose Right [facility]: Teradose 4D [facility]: Happy Metrix RADIATION DOSE: CT Rad equipment meets quality standard of care and radiation dose reduction techniq ues were employed. CTDIvol: 4.4 - 4.5 mGy. DLP: 815 mGy-cm. . LIMITATIONS: None. FINDINGS: AXILLAE: No adenopathy. CHEST WALL: No masses. No subcutaneous air. LUNGS: Ground-glass opacities in the right upper lobe best demonstrated on series 6, image 44 have no t significantly changed from prior study. Focal spiculated area along the right major fissure best d emonstrated on series 6, image 49 is not significantly changed. This may represent scar. Soft tissu e mass in the right middle lobe adjacent to the right heart border has increased in size. This now m easures 4.5 x 3.4 cm in greatest dimensions compared to 2.9 x 2.4 cm on prior study. There is a nodu le in the right base now measures 7.4 mm. This is best demonstrated on series 6, image 54. Previous ly this measured 5.2 mm. There are additional ground-glass opacities in the right base which could r epresent metastatic disease. This is most evident on series 6, image 87. Subpleural nodule in the r ight lower lobe has increased in size from prior exam and now measures just under 7 mm in greatest di ameter. PLEURA: No effusions. No calcifications. THYROID: No masses or significant asymmetry. HILAR AND MEDIASTINAL STRUCTURES: No identified masses or abnormal nodes. AORTA AND GREAT VESSELS: No aneurysm. No dissection. PULMONARY ARTERIES: No identified pulmonary emboli. Study not optimized for the pulmonary arteries. HEART: No pericardial effusion. HARDWARE AND LIFELINES: None. BONES: No significant finding. OTHER: No other significant finding. IMPRESSION: Pulmonary nodules have increased in size and number. The large mass in the right middle lobe has increased in size and now measures 4.5 x 3.4 cm. Findings are consistent with progression of disease. COMPARISON: None. RADIATION DOSE: CT Rad equipment meets quality standard of care and radiation dose reduction techniq ues were employed. CTDIvol: 4.4 - 4.5 mGy. DLP: 815 mGy-cm. mGy. TECHNIQUE: CT scan of the abdomen and pelvis performed with intravenous and oral contrast using mirella anabell scanning technique with dynamic intravenous contrast injection. Images reviewed with lung, soft tissue and bone windows. Reconstructed coronal and sagittal MPR images reviewed. Delayed images for evaluation of the urinary system also acquired and evaluated. All images stored on PACS. All CT scanners at this facility use dose modulation, iterative reconstruction, and/or weight based d osing when appropriate to reduce radiation dose to as low as reasonably achievable (ALARA). [facility]: Dose Right [facility]: SureCare [facility]: Dose Right [facility]: Teradose 4D [facility]: Happy Metrix FINDINGS: LIVER: Normal size. No masses. No dilated ducts. SPLEEN: Normal size. No focal lesions. PANCREAS: No masses. No significant calcifications. No adjacent inflammation or peripancreatic flui d collections. Pancreatic duct not dilated. GALLBLADDER: No identified stones by CT criteria. No inflammatory changes to suggest cholecystitis. ADRENAL GLANDS: No significant masses or asymmetry. RIGHT KIDNEY AND URETER: No solid masses. No significant calcifications. No hydronephrosis or hyd roureter. LEFT KIDNEY AND URETER: No solid masses. No significant calcifications. No hydronephrosis or hydr oureter. AORTA AND VESSELS: No aneurysm. No dissection. Renal arteries, SMA, celiac without stenosis. RETROPERITONEUM: No retroperitoneal adenopathy, hemorrhage or masses. LARGE AND SMALL BOWEL: No dilatation. No masses. No wall thickening. APPENDIX: Normal. ABDOMINAL WALL: No hernia or masses. PERITONEAL CAVITY: No free air. No free fluid. No peritoneal implants or masses. PELVIS: No mass or free fluid. Normal bladder. BONES: Degenerative changes in the lumbar spine most marked at L4-L5. OTHER: No other significant finding. IMPRESSION: No evidence of metastatic disease in the abdomen or pelvis. TECHNICAL DOCUMENTATION: JOB ID: [id number] Quality ID # 436: Final reports with documentation of one or more dose reduction techniques (e.g., Au tomated exposure control, adjustment of the mA and/or kV according to patient size, use of iterative reconstruction technique) 2010 [employer]- All Rights Reserved Reading location - IP/workstation name: [facility]-
== END ==
LOC: RAD 07:31
PROVIDERS: ATTEND Physician Assistant Medical
DX: C34.12 Malignant neoplasm of upper lobe, left bronchus or lung (principal)
CPT/HCPCS: 71260; 74177; 82565

== ENCOUNTER → 2018-11-30 | Outpatient (CLI) | payer MEDICARE, OTHER ==
--- NOTE | 2018-11-30 09:04 | RADIOLOGY REPORT (SQ) ---
EXAM DESCRIPTION: MRI HEAD COMBO COMPLETED DATE/TIME: 11/30/2018 8:45 am REASON FOR STUDY: MALIGNANT NEOPLASM OF UPPER LOBE, LEFT BRONCHUS OR LUNG C34.12 MALIGNANT NEOPLASM OF UPPER LOBE, LEFT BRONCHUS OR PIEDAD COMPARISON: 05/28/2018 TECHNIQUE: Multiplanar imaging includes noncontrasted T1, T2, FLAIR, Diffusion with ADC map and post gadolinium contrast T1 sequences. Images stored on PACS. CONTRAST TYPE AND DOSE: 9 mL Dotarem RENAL FUNCTION: Not indicated. ACR Type II contrast agent associated with few, if any, unconfounded cases of NSF LIMITATIONS: None. FINDINGS: ANATOMY: No anomalies. Normal vascular flow voids. Pituitary fossa normal. CSF SPACES: Mild generalized atrophy. Ventricles are normal in size and configuration. CEREBRUM: High-signal intensity lesions scattered throughout the white matter on FLAIR imaging with d istribution suggesting chronic micro-vascular ischemic change. No evidence of hemorrhage, mass, extra axial fluid collection or acute ischemic change. No enhancing lesions. POSTERIOR FOSSA: No signal alteration. No hemorrhage. No edema, masses, or mass effect. Internal red tory canals, cerebello-pontine angles, mastoids normal. No enhancing lesions. ORBITS: No masses. Globes normal. PARANASAL SINUSES: No fluid levels. Mucosa normal. DIFFUSION: Normal. No evidence of recent infarct. OTHER: No other significant finding. IMPRESSION: ATROPHY AND CHRONIC MICRO-VASCULAR ISCHEMIC CHANGES. OTHERWISE UNREMARKABLE MRI OF THE B RAIN WITHOUT AND WITH INTRAVENOUS GADOLINIUM CONTRAST. EVIDENCE OF ACUTE STROKE: NO. TECHNICAL DOCUMENTATION: JOB ID: [id number] [employer]- All Rights Reserved Reading location - IP/workstation name: [email or web address]
== END ==
LOC: RAD 07:47
PROVIDERS: ATTEND Internal Medicine
DX: C34.12 Malignant neoplasm of upper lobe, left bronchus or lung (principal)
CPT/HCPCS: 82565; 70553; A9576

== ENCOUNTER → 2019-01-28 | Outpatient (CLI) | payer MEDICARE, OTHER ==
--- NOTE | 2019-01-28 09:57 | RADIOLOGY REPORT (SQ) ---
EXAM DESCRIPTION: CT ABD/PELVIS WITH IV ONLY COMPLETED DATE/TIME: 01/28/2019 8:57 am REASON FOR STUDY: C34.12 MALIGNANT NEOPLASM OF UPPER LOBE, LEFT BRONCHUS OR LUNG C34.12 MALIGNANT N EOPLASM OF UPPER LOBE, LEFT BRONCHUS OR PIEDAD COMPARISON: None. TECHNIQUE: CT scan of the abdomen and pelvis performed using helical scanning technique with dynamic intravenous contrast injection. No oral contrast. Images reviewed with lung, soft tissue, and bone windows. Reconstructed coronal and sagittal MPR images reviewed. Delayed images for evaluation of the urinary system also acquired. All images stored on PACS. All CT scanners at this facility use dose modulation, iterative reconstruction, and/or weight based d osing when appropriate to reduce radiation dose to as low as reasonably achievable (ALARA). [facility]: Dose Right [facility]: CareDose [facility]: Dose Right [facility]: Teradose 4D [facility]: Nx[employer]ra CONTRAST TYPE AND DOSE: Contrast/concentration: Isovue 350.00 mg/ml; Total Contrast Delivered: 50.0 ml; Total Saline Delivered: 69.0 ml RENAL FUNCTION: Creatinine 1.3 milligrams/deciliter LIMITATIONS: None. FINDINGS: LOWER CHEST: See separate report of the CT of the chest. LIVER: The liver morphology is non cirrhotic. The portal veins are patent. There is no hepatic mass . SPLEEN: The spleen is normal in size PANCREAS: There is no acute abnormality of the pancreas. GALLBLADDER: Cholelithiasis without gallbladder wall thickening, pericholecystic fluid, biliary ducta l dilatation. ADRENAL GLANDS: No abnormality. RIGHT KIDNEY AND URETER: No solid masses. No calcifications. No hydronephrosis or hydroureter. LEFT KIDNEY AND URETER: No solid masses. No calcifications. No hydronephrosis or hydroureter. AORTA AND VESSELS: No thoracic aortic aneurysm or dissection. The abdominopelvic vasculature is lee nt. RETROPERITONEUM: No retroperitoneal adenopathy, hemorrhage or mass. BOWEL AND PERITONEAL CAVITY: No bowel obstruction, bowel wall thickening or pericolonic/ perienteric inflammation. No free intraperitoneal fluid, mesenteric adenopathy or mesenteric/ peritoneal mass. APPENDIX: Unable to identify the appendix but there is no pericecal inflammation to indicate an acute appendicitis. PELVIS: The urinary bladder is partially distended. There is a trace amount of free fluid in the cul -de-sac. There is no abnormality of the uterus. The hypodense lesion in the left adnexum that measu res up to 1.4 cm (image 38 of 604 and 59 of series 3) is stable from 02/20/2017. ABDOMINAL WALL: No masses or hernias. 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 The punctate sclerotic lesions within the L3 vertebral, S1 vertebral body, right ilium, and right proximal femur are stable. There is no f racture. OTHER: No other finding. IMPRESSION: 1. No evidence of abdominal or pelvic metastases. 2. Other secondary findings as detailed above. TECHNICAL DOCUMENTATION: JOB ID: [id number] Quality ID # [id number]: Final reports with documentation of one or more dose reduction techniques (e.g., Au tomated exposure control, adjustment of the mA and/or kV according to patient size, use of iterative reconstruction technique) 2010 [employer]- All Rights Reserved Reading location - IP/workstation name: [email or web address]
--- NOTE | 2019-01-28 10:33 | RADIOLOGY REPORT (SQ) ---
EXAM DESCRIPTION: CT CHEST WITH COMPLETED DATE/TIME: 01/28/2019 8:54 am REASON FOR STUDY: C34.12 MALIGNANT NEOPLASM OF UPPER LOBE, LEFT BRONCHUS OR LUNG C34.12 MALIGNANT N EOPLASM OF UPPER LOBE, LEFT BRONCHUS OR PIEDAD COMPARISON: 11/23/2018 TECHNIQUE: CT scan of the chest performed using helical scanning technique with dynamic intravenous contrast injection. Images reviewed with lung, soft tissue and bone windows. Reconstructed coronal and sagittal MPR and MIP images reviewed. All images stored on PACS. All CT scanners at this facility use dose modulation, iterative reconstruction, and/or weight based d osing when appropriate to reduce radiation dose to as low as reasonably achievable (ALARA). [facility]: Dose Right [facility]: CareDose [facility]: Dose Right [facility]: Teradose 4D [facility]: [employer] CONTRAST TYPE AND DOSE: 50 mL Omnipaque 350 RENAL FUNCTION: Creatinine 1.3 RADIATION DOSE: CT Rad equipment meets quality standard of care and radiation dose reduction techniq ues were employed. CTDIvol: 4.4 - 4.5 mGy. DLP: 588 mGy-cm. . LIMITATIONS: None. FINDINGS: LUNGS AND PLEURA: The right infrahilar mass has decreased in size. This measures 2.6 x 2. 3 cm on lung windows. At the same level on prior study the lesion measured 3.9 x 3.1 cm. Smaller ri ght-sided pulmonary nodules have decreased in size. There is a 4 mm nodule best demonstrated on seri es 6, image 53 which previously measured 7.4 mm. Spiculated mass in the right upper lobe best demons trated on series 6 image 49 now measures 11.6 mm compared to 14.3 mm on previous exam. No new nodule s. Nodular infiltrate in the lingula is unchanged. HILAR AND MEDIASTINAL STRUCTURES: No identified masses or abnormal nodes. HEART AND VASCULAR STRUCTURES: Small pericardial effusion slightly larger than noted on prior study. HARDWARE: None in the chest. UPPER ABDOMEN: No significant findings. Limited exam. THYROID AND OTHER SOFT TISSUES: No masses. No adenopathy. BONES: No significant finding. OTHER: No other significant finding. IMPRESSION: Compared to previous examination findings are consistent with response to therapy. Righ t infrahilar mass and right-sided pulmonary nodules are smaller in size. No new findings. TECHNICAL DOCUMENTATION: JOB ID: [id number] Quality ID # 436: Final reports with documentation of one or more dose reduction techniques (e.g., Au tomated exposure control, adjustment of the mA and/or kV according to patient size, use of iterative reconstruction technique) 2010 [employer]- All Rights Reserved Reading location - IP/workstation name: [email or web address]
== END ==
LOC: RAD 08:11
PROVIDERS: ATTEND Internal Medicine
DX: C34.12 Malignant neoplasm of upper lobe, left bronchus or lung (principal); K80.80 Other cholelithiasis without obstruction
CPT/HCPCS: 71260; 74177; 82565

== ENCOUNTER → 2019-05-16 | Outpatient (CLI) | payer MEDICARE, OTHER ==
--- NOTE | 2019-05-16 12:40 | RADIOLOGY REPORT (SQ) ---
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 No current complaints. Follow-up. Previous PET scan demo nstrated a hypermetabolic mass in the right middle lobe. COMPARISON: CT chest, abdomen and pelvis, 01/28/2019. CT chest, abdomen and pelvis 11/23/2018. CT c hest, 04/29/2017. PET CT, 08/20/2018. CONTRAST TYPE AND DOSE: contrast/concentration: Isovue 350.00 mg/ml; Total Contrast Delivered: 55.0 ml; Total Saline Delivered: 65.0 ml RENAL FUNCTION: GFR > 60. TECHNIQUE: CT scan of the chest performed using helical scanning technique with dynamic intravenous contrast injection. Images reviewed with lung, soft tissue and bone windows. Reconstructed coronal a nd sagittal MPR images reviewed. All images stored on PACS. CT scan of the abdomen and pelvis performed with intravenous and oral contrast using helical scanning technique with dynamic intravenous contrast injection. Images reviewed with lung, soft tissue and b one windows. Reconstructed coronal and sagittal MPR images reviewed. Delayed images for evaluation of the urinary system also acquired and evaluated. All images stored on PACS. All CT scanners at this facility use dose modulation, iterative reconstruction, and/or weight based d osing when appropriate to reduce radiation dose to as low as reasonably achievable (ALARA). [facility]: Dose Right [facility]: CareDose [facility]: Dose Right [facility]: Teradose 4D [facility]: [employer] RADIATION DOSE: CT Rad equipment meets quality standard of care and radiation dose reduction techniq ues were employed. CTDIvol: 4.4 - 4.5 mGy. DLP: 591 mGy-cm. . LIMITATIONS: None. FINDINGS: CHEST: AXILLAE: No adenopathy. CHEST WALL: No masses. No subcutaneous air. LUNGS: The trachea has normal caliber and appearance. No bronchial wall thickening or bronchiectasis . There are new areas of ground-glass attenuation in the anterior left upper lobe. A spiculated sub pleural nodule along the right fissure is stable. Chronic atelectasis/ scarring in the right middle lobe, also stable. Background moderate pulmonary emphysema unchanged. Few scattered subcentimeter p ulmonary nodules are unchanged. No focal consolidation. PLEURA: Chronic pleural scarring at the lung bases, stable. No pleural effusion or pneumothorax. THYROID: No masses or significant asymmetry. HILAR AND MEDIASTINAL STRUCTURES: No identified masses or abnormal nodes. AORTA AND GREAT VESSELS: No aneurysm. No dissection. PULMONARY ARTERIES: No identified pulmonary emboli. Study not optimized for the pulmonary arteries. HEART: The heart has normal size. Small pericardial effusion/ pericardial thickening, stable. HARDWARE AND LIFELINES: None. BONES: No significant finding. OTHER: No other significant finding. ABDOMEN AND PELVIS: LIVER: Normal size. No masses. No dilated ducts. SPLEEN: Normal size. No focal lesions. PANCREAS: No masses. No significant calcifications. No adjacent inflammation or peripancreatic flui d collections. Pancreatic duct not dilated. GALLBLADDER: There are tiny punctate calcified gallstones within the gallbladder lumen. No gallbladd er wall thickening or pericholecystic fluid. ADRENAL GLANDS: No significant masses or asymmetry. RIGHT KIDNEY AND URETER: No solid masses. No significant calcifications. No hydronephrosis or hyd roureter. LEFT KIDNEY AND URETER: No solid masses. No significant calcifications. No hydronephrosis or hydr oureter. AORTA AND VESSELS: No aneurysm. No dissection. Renal arteries, SMA, celiac without stenosis. RETROPERITONEUM: No retroperitoneal adenopathy, hemorrhage or masses. LARGE AND SMALL BOWEL: No dilatation. No masses. No wall thickening. APPENDIX: Normal. ABDOMINAL WALL: No hernia or masses. PERITONEAL CAVITY: No free air. No free fluid. No peritoneal implants or masses. PELVIS: Uterus and ovaries have normal size. No adnexal mass. Calcified pelvic phleboliths are note d. Urinary bladder is unremarkable. BONES: Degenerative disc disease, spondylosis and facet arthropathy in the lower lumbar spine is stab le. No suspicious bone lesions. OTHER: No other significant finding. IMPRESSION: 1. Since the previous examination, there has been interval development of patchy areas of ground-glas s attenuation in the left upper lobe, probably infectious/inflammatory process such is respiratory br onchiolitis/small airways disease or early infiltrate. Follow-up CT of the chest in 3 months is abelardo mmended to confirm complete resolution. 2. Stable appearance of the right middle lobe atelectasis/nodularity and pulmonary nodules, with no e vidence of new metastatic disease in the chest, abdomen or pelvis. 3. Small pericardial effusion is stable. 4. Cholelithiasis. No CT evidence of acute cholecystitis. TECHNICAL DOCUMENTATION: JOB ID: [id number] Quality ID # 436: Final reports with documentation of one or more dose reduction techniques (e.g., Au tomated exposure control, adjustment of the mA and/or kV according to patient size, use of iterative reconstruction technique) 2010 [employer]- All Rights Reserved Reading location - IP/workstation name: [email or web address]
== END ==
LOC: RAD 07:56
PROVIDERS: ATTEND Internal Medicine
DX: C34.12 Malignant neoplasm of upper lobe, left bronchus or lung (principal); I31.3 Pericardial effusion (noninflammatory); K80.20 Calculus of gallbladder without cholecystitis without obstruction
CPT/HCPCS: 71260; 74177

== ENCOUNTER → 2019-09-09 | Outpatient (CLI) | payer MEDICARE, OTHER ==
--- NOTE | 2019-09-09 16:36 | RADIOLOGY REPORT (SQ) ---
EXAM DESCRIPTION: MRI HEAD WITHOUT IMAGES COMPLETED DATE/TIME: 09/09/2019 2:33 pm REASON FOR STUDY: C34.12 MALIGNANT NEOPLASM OF UPPER LOBE, LEFT BRONCHUS OR LUNG C34.12 MALIGNANT N EOPLASM OF UPPER LOBE, LEFT BRONCHUS OR PIEDAD COMPARISON: 11/30/2018 TECHNIQUE: Multiplanar imaging includes non-contrasted T1, T2, FLAIR, and diffusion with ADC map seq uences. Images stored on PACS. LIMITATIONS: None. FINDINGS: ANATOMY: No anomalies. Normal vascular flow voids. Pituitary fossa normal. CSF SPACES: Normal in size and contour. No hemorrhage. CEREBRUM: Sulci and gyri normal in size and contour. Numerous areas of increased white matter signal on FLAIR imaging. No evidence of hemorrhage, mass, or extraaxial fluid collection. POSTERIOR FOSSA: No signal alteration. No hemorrhage. No edema, masses or mass effect. Internal red tory canals, cerebello-pontine angles, mastoids normal. DIFFUSION IMAGING: Negative for acute or sub-acute infarction. ORBITS: No masses. Globes normal. PARANASAL SINUSES: Mucous retention cyst in the right maxillary sinus. OTHER: No other significant finding. IMPRESSION: Chronic microvascular ischemia. Right maxillary sinus disease. No acute intracranial i maging finding. No evidence of metastatic disease in the brain in this noncontrast study. EVIDENCE OF ACUTE STROKE: NO. TECHNICAL DOCUMENTATION: JOB ID: [id number] 2010 [employer]- All Rights Reserved Reading location - IP/workstation name: [email or web address]
--- NOTE | 2019-09-09 17:03 | RADIOLOGY REPORT (SQ) ---
EXAM DESCRIPTION: CT CHEST WITHOUT; CT ABD/PELVIS NO ORAL OR IV IMAGES COMPLETED DATE/TIME: 09/09/2019 2:18 pm REASON FOR STUDY: C34.12 MALIGNANT NEOPLASM OF UPPER LOBE, LEFT BRONCHUS OR LUNG C34.12 MALIGNANT N EOPLASM OF UPPER LOBE, LEFT BRONCHUS OR lung. Stage IV adenocarcinoma of the left lung. Previous P ET scan demonstrated hypermetabolic mass in the right middle lobe. New ground-glass attenuation in t he anterior left upper lobe on recent CT of the chest abdomen and pelvis performed 05/16/2019. [facility]m [facility] follow-up. COMPARISON: CT chest, abdomen and pelvis, 05/16/2019. CT chest, abdomen and pelvis, 01/28/2019. PET CT, 09/19/2018. CT chest, abdomen and pelvis 04/29/2017. TECHNIQUE: CT scan of the chest performed without intravenous contrast using helical scanning techni que. Images reviewed with lung, soft tissue and bone windows. Reconstructed coronal and sagittal MPR images reviewed. All images stored on PACS. CT scan of the abdomen and pelvis performed without intravenous contrast and withoutoral contrast usi ng helical scanning technique with dynamic intravenous contrast injection. Images reviewed with lung , soft tissue and bone windows. Reconstructed coronal and sagittal MPR images reviewed. All images stored on PACS. All CT scanners at this facility use dose modulation, iterative reconstruction, and/or weight based d osing when appropriate to reduce radiation dose to as low as reasonably achievable (ALARA). [facility]: Dose Right [facility]: CareDose [facility]: Dose Right [facility]: Teradose 4D [facility]: [employer] RADIATION DOSE: CT Rad equipment meets quality standard of care and radiation dose reduction techniq ues were employed. CTDIvol: 4.8 mGy. DLP: 331 mGy-cm. mGy. LIMITATIONS: No technical limitations. FINDINGS: CHEST: AXILLAE: No adenopathy. CHEST WALL: No masses. No subcutaneous air. LUNGS: The trachea has normal caliber and appearance. No bronchial wall thickening or bronchiectasis . Interval resolution of the left upper lobe ground-glass attenuation since previous examination. T here is been interval development of patchy tree-in-bud nodularity in the right lower lobe posteriorl y, suspicious for infectious/ inflammatory process. There has also been interval development of mult iple new subcentimeter noncalcified pulmonary nodules in both lungs: A 4 mm solid nodule in the righ t upper lobe and a 2 mm solid nodule in the medial left upper lobe (image 11), a 5 mm solid nodule ri ght lower lobe (image 31), a 4 mm solid nodule anterior left upper lobe (image 24), a 4 mm ground-gla ss nodule in the lingula and a 5 mm solid nodule in the medial anterior right middle lobe (image 35) C, a 6 mm solid nodule medial right middle lobe (image 36), a 4 mm solid nodule left lower lobe (imag e 44). Additional scattered subcentimeter subpleural and parenchymal nodules are stable from prior. Chronic atelectasis/ scarring in the right middle lobe is stable from prior examination. PLEURA: No effusions. No calcifications. THYROID: No masses or significant asymmetry. HILAR AND MEDIASTINAL STRUCTURES: No identified masses or abnormal nodes. AORTA AND GREAT VESSELS: No aneurysm. Postoperative changes of prior CABG. HEART: There is mild cardiomegaly. Small pericardial effusion/ pericardial thickening. HARDWARE AND LIFELINES: None. BONES: No significant finding. OTHER: No other significant finding. ABDOMEN AND PELVIS: LIVER: Normal size and contour. Evaluation the parenchyma is limited without IV contrast. No biliar y ductal dilation. SPLEEN: Normal size. No focal lesions. PANCREAS: No masses. No significant calcifications. No adjacent inflammation or peripancreatic flui d collections. Pancreatic duct not dilated. GALLBLADDER: Gallstones. No inflammatory changes to suggest cholecystitis. ADRENAL GLANDS: No significant masses or asymmetry. RIGHT KIDNEY AND URETER: No solid masses. Assessment limited by lack of IV contrast. No significant calcifications. No hydronephrosis or hydroureter. LEFT KIDNEY AND URETER: No solid masses. Assessment limited by lack of IV contrast. No significant calcifications. No hydronephrosis or hydroureter. AORTA AND VESSELS: No aneurysm. RETROPERITONEUM: No retroperitoneal mass or fluid. APPENDIX: Normal. LARGE AND SMALL BOWEL: There is moderate stool throughout the colon. No bowel obstruction. No bowel wall thickening or inflammatory change. ABDOMINAL WALL: No hernia or masses. PERITONEAL CAVITY: No free air. No free fluid. No peritoneal implants or masses. PELVIS: No mass or free fluid. Normal bladder. BONES: No suspicious bone lesions. Spondylosis and degenerative disc disease in the lumbar spine. OTHER: No other significant finding. IMPRESSION: 1. New tree-in-bud type nodularity of the right lower lobe suspicious for infectious/inflammatory pro cess. Interval resolution of the left upper lobe ground-glass attenuation consistent with resolved i nfectious/inflammatory process. 2. Interval development of multiple scattered solid pulmonary nodules in both lungs. Findings may re present infectious/inflammatory process, however metastatic disease is also in the differential. A f ollow-up CT of the chest in 3 months is recommended for re-evaluation. 3. Cholelithiasis. No CT evidence of acute cholecystitis. 4. Moderate stool throughout the colon which can be seen with constipation. 5. Small pericardial effusion/pericardial thickening. 6. No evidence of metastatic disease in the abdomen or pelvis. TECHNICAL DOCUMENTATION: JOB ID: [id number] Quality ID # 436: Final reports with documentation of one or more dose reduction techniques (e.g., Au tomated exposure control, adjustment of the mA and/or kV according to patient size, use of iterative reconstruction technique) 2010 [employer]- All Rights Reserved Reading location - IP/workstation name: [email or web address]
== END ==
LOC: RAD 13:59
PROVIDERS: ATTEND Internal Medicine
DX: C34.12 Malignant neoplasm of upper lobe, left bronchus or lung (principal); K80.20 Calculus of gallbladder without cholecystitis without obstruction
CPT/HCPCS: 70551; 71250; 74176

== ENCOUNTER 2019-09-30 11:47 | Inpatient (IN) | payer MEDICARE, OTHER ==
[2019-09-30] MEDS: NORMAL SALINE 1000 ML 1,000 ML IV PRN (13:50)
--- NOTE | 2019-09-30 14:10 | RADIOLOGY REPORT (SQ) ---
EXAM DESCRIPTION: CHEST SINGLE VIEW IMAGES COMPLETED DATE/TIME: 09/30/2019 1:38 pm REASON FOR STUDY: chest pain COMPARISON: Chest CT dated 09/09/2019 EXAM PARAMETERS: NUMBER OF VIEWS: One view. TECHNIQUE: Single frontal radiographic view of the chest acquired. RADIATION DOSE: NA LIMITATIONS: None. FINDINGS: LUNGS AND PLEURA: Probable linear scarring in the right upper lobe. Fullness in the right hilum consistent with right right hilar mass or adenopathy demonstrated on recent CT. No consolidat ion, pneumothorax or effusion. MEDIASTINUM AND HILAR STRUCTURES: No masses. Contour normal. HEART AND VASCULAR STRUCTURES: Heart normal in size. Normal vasculature. BONES: No acute findings. HARDWARE: None in the chest. OTHER: No other significant finding. IMPRESSION: Right hilar fullness consistent with recent mass and/or adenopathy demonstrated on CT. Probable scarring in the right upper lobe. Small nodules demonstrated on CT are less apparent on con ventional radiograph. TECHNICAL DOCUMENTATION: JOB ID: [id number] 2010 [employer]- All Rights Reserved Reading location - IP/workstation name: [email or web address]
[2019-09-30 14:15] LABS: APPEARANCE,URINE CLEAR; BILIRUBIN,URINE NEGATIVE (NEGATIVE); COLOR,URINE STRAW; GLUCOSE, URINE NEGATIVE (NEGATIVE); KETONES,URINE NEGATIVE (NEGATIVE); LEUKOCYTE ESTERASE,URINE NEGATIVE (NEGATIVE); NITRITE,URINE NEGATIVE (NEGATIVE); PROTEIN,URINE 30 mg/dL (NEGATIVE); URINE SPECIFIC GRAVITY 1.005; UROBILINOGEN,URINE NEGATIVE mg/dL (<2.0)
[2019-09-30 15:34] LABS: ABSOLUTE EOSINOPHILS # (AUTO) 0.2 10^3/uL (0.0-0.6); ABSOLUTE LYMPHOCYTES (AUTO) 0.5 10^3/uL (0.5-4.7); ABSOLUTE MONOCYTES (AUTO) 0.5 10^3/uL (0.1-1.4); ABSOLUTE NEUT (AUTO) 3.9 10^3/uL (1.7-8.2); BASOPHILS % (AUTO) 0.6 % (0-2); EOSINOPHILS % (AUTO) 3.7 % (0-6); HEMATOCRIT 24.2 % (36.0-47.0); HEMOGLOBIN 8.2 g/dL (12.0-15.5); LYMPHOCYTES % (AUTO) 10.4 % (13-45); MEAN CORPUSCULAR HEMOGLOBIN 30.5 pg (27.0-33.4); MEAN CORPUSCULAR HGB CONC 33.8 g/dL (32.0-36.0); MEAN CORPUSCULAR VOLUME 90 fl (80-97); MONOCYTES % (AUTO) 10.4 % (3-13); PLATELET COUNT 299 10^3/uL (150-450); RED BLOOD COUNT 2.69 10^6/uL (3.72-5.28); RED CELL DISTRIBUTION WIDTH 14.8 % (11.5-14.0); SEGMENTED NEUTROPHILS % (AUTO) 74.9 % (42-78); TOTAL CELLS COUNTED % (AUTO) 100 %; WHITE BLOOD COUNT 5.2 10^3/uL (4.0-10.5)
[2019-09-30 15:50] LABS: ALBUMIN 3.4 g/dL (3.5-5.0); ALKALINE PHOSPHATASE 118 U/L (38-126); ANION GAP 12 (5-19); ASPARTATE AMINO TRANSFERASE 25 U/L (14-36); BILIRUBIN,TOTAL 0.3 mg/dL (0.2-1.3); BLOOD UREA NITROGEN 45 mg/dL (7-20); CARBON DIOXIDE 21 mmol/L (22-30); CHLORIDE 94 mmol/L (98-107); GLUCOSE 109 mg/dL (75-110); IRON(TIBC) 18.4 ug/dL (37-170); POTASSIUM 4.5 mmol/L (3.6-5.0); TOTAL PROTEIN 5.9 g/dL (6.3-8.2)
--- NOTE | 2019-09-30 18:33 | RADIOLOGY REPORT (SQ) ---
EXAM DESCRIPTION: U/S RETROPERITON LTD IMAGES COMPLETED DATE/TIME: 09/30/2019 6:21 pm REASON FOR STUDY: acute kidney injury N17.8 OTHER ACUTE KIDNEY FAILURE D50.8 OTHER IRON DEFICIENC Y ANEMIAS COMPARISON: None. TECHNIQUE: Dynamic and static grayscale images acquired of the kidneys and bladder and recorded on P ACS. Additional selected color Doppler and spectral images recorded. LIMITATIONS: None. FINDINGS: RIGHT KIDNEY: Normal size, 9.4 cm. Increased echogenicity No solid or suspicious mass es. No true hydronephrosis. The renal pelvis is prominent. No calcifications. LEFT KIDNEY: Normal size, 9.3 cm. Increased echogenicity No solid or suspicious masses. No hyd ronephrosis. No calcifications. BLADDER: No masses. Bilateral ureteral jets are seen. OTHER FINDINGS: No other significant finding. IMPRESSION: There is increased echogenicity in each kidney that may suggest medical renal disease. No acute finding. TECHNICAL DOCUMENTATION: JOB ID: [id number] 2010 [employer]- All Rights Reserved Reading location - IP/workstation name: [email or web address]
[2019-09-30] MEDS: DIPHENHYDRAMINE HCL 25 MG CAPSULE PO PRN (20:24)
--- NOTE | 2019-09-30 20:56 | PDOC H&P ---
History of Present Illness Admission Date/PCP: 09/30/19 17:24 ART VEGA MD History of Present Illness: KYE SANDRA is a 74 year old female, She has a history of lung cancer di agnosed about 3 years ago,, I saw her in the office on September 27, 2019 when she came for follow-up evaluation,The blood work demonstrated serum creatinine 1.8, sodium 128 hemoglobin 8.1., Patient was called from home to be admitted directly to the hospital. She recently was in the [facility] when she had upper GI bleed, she underwent upper endoscopy in the [facility], I do not have details of the procedure. The blood work that was done in the hospital also demonstrated anemia but the iron indices is consistent with anemia of chronic disease Past Medical History Cardiac Medical History: Reports: Hypertension Malignancy Medical History: Reports: Liver Cancer Musculoskeltal Medical History: Reports: Arthritis Hematology: Reports: Anemia Social History Smoking Status: Never Smoker Electronic Cigarette use?: No Frequency of Alcohol Use: None Hx Recreational Drug Use: No Drugs: None Hx Prescription Drug Abuse: No Family History Family History: Reviewed & Not Pertinent Parental Family History Reviewed: Yes Children Family History Reviewed: Yes Sibling(s) Family History Reviewed.: Yes Medication/Allergy Home Medications: Amlodipine Besylate [Norvasc 10 mg Tablet] 10 mg PO DAILY 09/03/12 Metoprolol Succinate [Toprol Xl 25 mg Tab.sr] 1 tab PO DAILY 03/08/16 Elderberry Fruit and Flower [Black Elderberry 575 mg Cap] 1 cap PO DAILY 09/30/19 Folic Acid [Folvite 1 mg Tablet] 1 mg PO DAILY 09/30/19 Megestrol Acetate [Megace 20 mg Tablet] 40 mg PO BID 09/30/19 Osimertinib Mesylate [Tagrisso] 80 mg PO DAILY 09/30/19 Tramadol HCl [Ultram 50 mg Tablet] 50 mg PO BIDP PRN 09/30/19 Valsartan [Diovan 160 mg Tablet] 160 mg PO DAILY 09/30/19 Allergies/Adverse Reactions: No Known Allergies Allergy (Verified 03/07/16 19:51) Review of Systems Constitutional: PRESENT: anorexia, fatigue Eyes: ABSENT: visual disturbances Ears: ABSENT: hearing changes Cardiovascular: ABSENT: chest pain, dyspnea on exertion, edema, orthropnea, palpitations Respiratory: ABSENT: cough, hemoptysis Gastrointestinal: ABSENT: as per HPI, abdominal pain, bloating, coffee ground emesis, constipation, diarrhea, dysphagia, heartburn, hematemesis, hematochezia, melena, nausea, vomiting, other Genitourinary: ABSENT: dysuria, hematuria Musculoskeletal: PRESENT: back pain. ABSENT: joint swelling Integumentary: ABSENT: rash, wounds Neurological: ABSENT: abnormal gait, abnormal speech, confusion, dizziness, focal weakness, syncope Psychiatric: ABSENT: anxiety, depression, homidical ideation, suicidal ideation Endocrine: ABSENT: cold intolerance, heat intolerance, menstrual abnormalities, polydipsia, polyuria Hematologic/Lymphatic: ABSENT: easy bleeding, easy bruising, lymphadenopathy Physical Exam Vital Signs: Temp Pulse Resp BP Pulse Ox 98.3 F 78 16 120/57 L 99 09/30/19 16:25 09/30/19 18:54 09/30/19 16:25 09/30/19 16:25 09/30/19 16:25 Intake & Output 09/29/19 09/30/19 10/01/19 06:59 06:59 06:59 Intake Total 476 Output Total 250 Balance 226 Weight 44.6 kg General appearance: PRESENT: no acute distress, thin Head exam: PRESENT: atraumatic, normocephalic Eye exam: PRESENT: PERRLA Ear exam: PRESENT: normal external ear exam Mouth exam: PRESENT: moist, tongue midline Neck exam: PRESENT: full ROM Respiratory exam: PRESENT: clear to auscultation claire Cardiovascular exam: PRESENT: +S1, +S2 Pulses: PRESENT: normal dorsalis pedis pul, +2 pedal pulses bilateral Vascular exam: PRESENT: normal capillary refill GI/Abdominal exam: PRESENT: soft Rectal exam: PRESENT: deferred Neurological exam: PRESENT: alert Psychiatric exam: PRESENT: appropriate affect, normal mood. ABSENT: homicidal ideation, suicidal ideation Skin exam: PRESENT: dry, intact, warm. ABSENT: cyanosis, rash Results Laboratory Results: 09/30/19 14:36 09/30/19 14:36 09/30/19 09/30/19 09/30/19 12:45 12:45 14:36 WBC 5.2 RBC 2.69 L Hgb 8.2 L Hct 24.2 L MCV 90 MCH 30.5 MCHC 33.8 RDW 14.8 H Plt Count 299 Seg Neutrophils % 74.9 Sodium Potassium Chloride Carbon Dioxide Anion Gap BUN Creatinine Est GFR ( Amer) Glucose Serum Osmolality Calcium Iron TIBC % Saturation Ferritin Total Bilirubin AST Alkaline Phosphatase Total Protein Albumin Urine Color STRAW Urine Appearance CLEAR Urine pH 7.0 Ur Specific [place] 1.005 Urine Protein 30 H Urine Glucose (UA) NEGATIVE Urine Ketones NEGATIVE Urine Blood NEGATIVE Urine Nitrite NEGATIVE Ur Leukocyte Esterase NEGATIVE Urine RBC (Auto) 0 Urine Osmolality 189 L 09/30/19 09/30/19 14:36 14:36 WBC RBC Hgb Hct MCV MCH MCHC RDW Plt Count Seg Neutrophils % Sodium 126.8 L Potassium 4.5 Chloride 94 L Carbon Dioxide 21 L Anion Gap 12 BUN 45 H Creatinine 1.78 H Est GFR ( Amer) 34 L Glucose 109 Serum Osmolality 276 Calcium 9.0 Iron 18.4 L TIBC 195 L % Saturation 9 Ferritin 345.00 H Total Bilirubin 0.3 AST 25 Alkaline Phosphatase 118 Total Protein 5.9 L Albumin 3.4 L Urine Color Urine Appearance Urine pH Ur Specific [place] Urine Protein Urine Glucose (UA) Urine Ketones Urine Blood Urine Nitrite Ur Leukocyte Esterase Urine RBC (Auto) Urine Osmolality Impressions: Renal Ultrasound 09/30/19 00:00 IMPRESSION: There is increased echogenicity in each kidney that may suggest medical renal disease. No acute finding. Chest X-Ray 09/30/19 13:08 IMPRESSION: Right hilar fullness consistent with recent mass and/or adenopathy demonstrated on CT. Probable scarring in the right upper lobe. Small nodules demonstrated on CT are less apparent on conventional radiograph. Assessment & Plan - Diagnosis (1) Acute kidney injury Is this a current diagnosis for this admission?: Yes Plan: Patient with acute kidney injury, the kidney ultrasound suggest chronic kidney disease, patient will be hydrated with fluid monitor kidney function (2) Hyponatremia Is this a current diagnosis for this admission?: Yes Plan: This is probably related to hypovolemia patient is clinically dry (3) Anemia Qualifiers: Anemia type: other cause Other causes of anemia: chronic disease, neoplastic Qualified Code(s): D63.0 - Anemia in neoplastic disease Is this a current diagnosis for this admission?: Yes
[2019-10-01] MEDS: NORMAL SALINE 1000 ML 1,000 ML IV PRN ×3 (00:50→23:40)
[2019-10-01 09:10] LABS: HEMATOCRIT 26.8 % (36.0-47.0); HEMOGLOBIN 9.2 g/dL (12.0-15.5); MEAN CORPUSCULAR HEMOGLOBIN 30.7 pg (27.0-33.4); MEAN CORPUSCULAR HGB CONC 34.3 g/dL (32.0-36.0); MEAN CORPUSCULAR VOLUME 90 fl (80-97); PLATELET COUNT 322 10^3/uL (150-450); RED CELL DISTRIBUTION WIDTH 15.1 % (11.5-14.0); WHITE BLOOD COUNT 6.2 10^3/uL (4.0-10.5)
[2019-10-01 09:19] LABS: ANION GAP 9 (5-19); BLOOD UREA NITROGEN 42 mg/dL (7-20); CALCIUM 9.4 mg/dL (8.4-10.2); CARBON DIOXIDE 21 mmol/L (22-30); CHLORIDE 101 mmol/L (98-107); GLUCOSE 124 mg/dL (75-110); POTASSIUM 4.4 mmol/L (3.6-5.0)
[2019-10-01] MEDS ORDERED: ELDERBERRY FRUIT AND FLOWER PO SCH (15:15)
[2019-10-01] MEDS ORDERED: OSIMERTINIB MESYLATE 80 MG PO SCH (15:15)
--- NOTE | 2019-10-01 15:17 | PDOC PROGRESS REPORT ---
Subjective Progress Note for:: 10/01/19 Subjective:: Patient was admitted yesterday for the management of hyponatremia, acute kidney injury, felt to be due to dehydration Reason For Visit: ACUTE KIDNEY SYNDROME,ANEMIA,DEHYDRATION Physical Exam Vital Signs: Temp Pulse Resp BP Pulse Ox 98.0 F 81 19 111/59 L 100 10/01/19 11:02 10/01/19 11:02 10/01/19 11:02 10/01/19 11:02 10/01/19 11:02 Intake & Output 09/30/19 10/01/19 10/02/19 06:59 06:59 06:59 Intake Total 1476 1240 Output Total 2050 Balance -574 1240 Weight 45 kg General appearance: PRESENT: no acute distress Eye exam: PRESENT: PERRLA Respiratory exam: PRESENT: clear to auscultation claire Cardiovascular exam: PRESENT: +S1, +S2 GI/Abdominal exam: PRESENT: soft Results Laboratory Results: 10/01/19 08:56 10/01/19 08:56 09/30/19 09/30/19 09/30/19 12:45 14:36 14:36 WBC 5.2 RBC 2.69 L Hgb 8.2 L Hct 24.2 L MCV 90 MCH 30.5 MCHC 33.8 RDW 14.8 H Plt Count 299 Seg Neutrophils % 74.9 Sodium 126.8 L Potassium 4.5 Chloride 94 L Carbon Dioxide 21 L Anion Gap 12 BUN 45 H Creatinine 1.78 H Est GFR ( Amer) 34 L Est GFR (Non-Af Amer) Glucose 109 Serum Osmolality Calcium 9.0 Iron 18.4 L TIBC 195 L % Saturation 9 Ferritin 345.00 H Total Bilirubin 0.3 AST 25 Alkaline Phosphatase 118 Total Protein 5.9 L Albumin 3.4 L Urine Osmolality 189 L 09/30/19 10/01/19 10/01/19 14:36 08:13 08:13 WBC Cancelled RBC Cancelled Hgb Cancelled Hct Cancelled MCV Cancelled MCH Cancelled MCHC Cancelled RDW Cancelled Plt Count Cancelled Seg Neutrophils % Sodium Cancelled Potassium Cancelled Chloride Cancelled Carbon Dioxide Cancelled Anion Gap Cancelled BUN Cancelled Creatinine Cancelled Est GFR ( Amer) Cancelled Est GFR (Non-Af Amer) Cancelled Glucose Cancelled Serum Osmolality 276 Calcium Cancelled Iron TIBC % Saturation Ferritin Total Bilirubin AST Alkaline Phosphatase Total Protein Albumin Urine Osmolality 10/01/19 10/01/19 08:56 08:56 WBC 6.2 RBC 3.00 L Hgb 9.2 L Hct 26.8 L MCV 90 MCH 30.7 MCHC 34.3 RDW 15.1 H Plt Count 322 Seg Neutrophils % Sodium 130.5 L Potassium 4.4 Chloride 101 Carbon Dioxide 21 L Anion Gap 9 BUN 42 H Creatinine 1.51 H Est GFR ( Amer) 41 L Est GFR (Non-Af Amer) Glucose 124 H Serum Osmolality Calcium 9.4 Iron TIBC % Saturation Ferritin Total Bilirubin AST Alkaline Phosphatase Total Protein Albumin Urine Osmolality Impressions: Renal Ultrasound 09/30/19 00:00 IMPRESSION: There is increased echogenicity in each kidney that may suggest medical renal disease. No acute finding. Chest X-Ray 09/30/19 13:08 IMPRESSION: Right hilar fullness consistent with recent mass and/or adenopathy demonstrated on CT. Probable scarring in the right upper lobe. Small nodules demonstrated on CT are less apparent on conventional radiograph. Assessment & Plan - Diagnosis (1) Acute kidney injury Is this a current diagnosis for this admission?: Yes Plan: Continue IV fluid therapy improving (2) Hyponatremia Is this a current diagnosis for this admission?: Yes (3) Anemia Qualifiers: Anemia type: other cause Other causes of anemia: chronic disease, neopl astic Qualified Code(s): D63.0 - Anemia in neoplastic disease Is this a current diagnosis for this admission?: Yes (4) Malignant neoplasm of lung Qualifiers: Laterality: right Lung location: unspecified part of lung Qualified Code(s): C34.91 - Malignant neoplasm of unspecified part of right bronchus or lung Is this a current diagnosis for this admission?: Yes - Time Time Spent with patient: 25-34 minutes Level of Care: IMCU Medications reviewed and adjusted accordingly: Yes Anticipated discharge: Home Within: within 48 hours
[2019-10-01] MEDS: VALSARTAN 160 MG TABLET PO SCH (15:59)
[2019-10-01] MEDS: AMLODIPINE BESYLATE 10 MG TABLET PO SCH (15:59)
[2019-10-01] MEDS: METOPROLOL SUCCINATE 25 MG TAB.SR.24H PO SCH ×2 (16:00→16:01)
[2019-10-01] MEDS: FOLIC ACID 1 MG TABLET PO SCH ×2 (16:00→16:02)
[2019-10-01] MEDS: MEGESTROL ACETATE 20 MG TABLET PO SCH (18:06)
[2019-10-01] MEDS: DIPHENHYDRAMINE HCL 25 MG CAPSULE PO PRN (21:08)
[2019-10-02 09:34] LABS: ABSOLUTE EOSINOPHILS # (AUTO) 0.2 10^3/uL (0.0-0.6); ABSOLUTE LYMPHOCYTES (AUTO) 0.8 10^3/uL (0.5-4.7); ABSOLUTE MONOCYTES (AUTO) 0.5 10^3/uL (0.1-1.4); ABSOLUTE NEUT (AUTO) 4.8 10^3/uL (1.7-8.2); BASOPHILS % (AUTO) 0.6 % (0-2); EOSINOPHILS % (AUTO) 3.1 % (0-6); HEMATOCRIT 27.1 % (36.0-47.0); HEMOGLOBIN 9.3 g/dL (12.0-15.5); LYMPHOCYTES % (AUTO) 12.5 % (13-45); MEAN CORPUSCULAR HEMOGLOBIN 30.8 pg (27.0-33.4); MEAN CORPUSCULAR HGB CONC 34.2 g/dL (32.0-36.0); MEAN CORPUSCULAR VOLUME 90 fl (80-97); MONOCYTES % (AUTO) 7.6 % (3-13); PLATELET COUNT 352 10^3/uL (150-450); RED BLOOD COUNT 3.01 10^6/uL (3.72-5.28); RED CELL DISTRIBUTION WIDTH 15.1 % (11.5-14.0); SEGMENTED NEUTROPHILS % (AUTO) 76.2 % (42-78); TOTAL CELLS COUNTED % (AUTO) 100 %; WHITE BLOOD COUNT 6.3 10^3/uL (4.0-10.5)
[2019-10-02 09:47] LABS: ALBUMIN 3.6 g/dL (3.5-5.0); ALKALINE PHOSPHATASE 130 U/L (38-126); ANION GAP 11 (5-19); ASPARTATE AMINO TRANSFERASE 23 U/L (14-36); BILIRUBIN,TOTAL 0.4 mg/dL (0.2-1.3); BLOOD UREA NITROGEN 32 mg/dL (7-20); CALCIUM 9.6 mg/dL (8.4-10.2); CARBON DIOXIDE 20 mmol/L (22-30); CHLORIDE 104 mmol/L (98-107); GLUCOSE 124 mg/dL (75-110); POTASSIUM 4.6 mmol/L (3.6-5.0); TOTAL PROTEIN 6.6 g/dL (6.3-8.2)
[2019-10-02] MEDS: MEGESTROL ACETATE 20 MG TABLET PO SCH ×2 (10:06→10:20)
[2019-10-02] MEDS: NORMAL SALINE 1000 ML 1,000 ML IV PRN ×2 (10:18→21:11)
[2019-10-02] MEDS: VALSARTAN 160 MG TABLET PO SCH ×2 (10:19→18:58)
[2019-10-02] MEDS: FOLIC ACID 1 MG TABLET PO SCH (10:20)
[2019-10-02] MEDS: TRAMADOL HCL 50 MG TABLET PO PRN (10:21)
[2019-10-02] MEDS: METOPROLOL SUCCINATE 25 MG TAB.SR.24H PO SCH (10:21)
[2019-10-02] MEDS: AMLODIPINE BESYLATE 10 MG TABLET PO SCH (10:21)
--- NOTE | 2019-10-02 14:38 | PDOC PROGRESS REPORT ---
Subjective Progress Note for:: 10/02/19 Subjective:: Patient improving on present treatment Reason For Visit: ACUTE KIDNEY SYNDROME,ANEMIA,DEHYDRATION Physical Exam Vital Signs: Temp Pulse Resp BP Pulse Ox 97.8 F 76 20 121/67 100 10/02/19 11:31 10/02/19 11:31 10/02/19 11:31 10/02/19 11:31 10/02/19 11:31 Intake & Output 10/01/19 10/02/19 10/03/19 06:59 06:59 06:59 Intake Total 1476 3090 1240 Output Total 2050 2300 Balance -848 532 4008 Weight 45 kg 45 kg General appearance: PRESENT: no acute distress Eye exam: PRESENT: PERRLA Respiratory exam: PRESENT: clear to auscultation claire Cardiovascular exam: PRESENT: +S1, +S2 GI/Abdominal exam: PRESENT: soft Neurological exam: PRESENT: alert Results Laboratory Results: 10/02/19 08:41 10/02/19 08:41 10/02/19 10/02/19 08:41 08:41 WBC 6.3 RBC 3.01 L Hgb 9.3 L Hct 27.1 L MCV 90 MCH 30.8 MCHC 34.2 RDW 15.1 H Plt Count 352 Seg Neutrophils % 76.2 Sodium 134.5 L Potassium 4.6 Chloride 104 Carbon Dioxide 20 L Anion Gap 11 BUN 32 H Creatinine 1.37 H Est GFR ( Amer) 46 L Glucose 124 H Calcium 9.6 Total Bilirubin 0.4 AST 23 Alkaline Phosphatase 130 H Total Protein 6.6 Albumin 3.6 Impressions: Renal Ultrasound 09/30/19 00:00 IMPRESSION: There is increased echogenicity in each kidney that may suggest medical renal disease. No acute finding. Chest X-Ray 09/30/19 13:08 IMPRESSION: Right hilar fullness consistent with recent mass and/or adenopathy demonstrated on CT. Probable scarring in the right upper lobe. Small nodules demonstrated on CT are less apparent on conventional radiograph. Assessment & Plan - Diagnosis (1) Acute kidney injury Is this a current diagnosis for this admission?: Yes Plan: Improving on hydration, suggesting prerenal component (2) Hyponatremia Is this a current diagnosis for this admission?: Yes Plan: Improving (3) Anemia Qualifiers: Anemia type: other cause Other causes of anemia: chronic disease, neoplastic Qualified Code(s): D63.0 - Anemia in neoplastic disease Is this a current diagnosis for this admission?: Yes (4) Malignant neoplasm of lung Qualifiers: Laterality: right Lung location: unspecified part of lung Qualified Code(s): C34.91 - Malignant neoplasm of unspecified part of right bronchus or lung Is this a current diagnosis for this admission?: Yes - Time Time Spent with patient: 35 or more minutes Level of Care: IMCU Medications reviewed and adjusted accordingly: Yes Anticipated discharge: Home Within: within 24 hours
[2019-10-02] MEDS: DIPHENHYDRAMINE HCL 25 MG CAPSULE PO PRN (20:12)
--- NOTE | 2019-10-02 21:48 | CDI QUERY ---
CDI Query CDI Review: Documentation in the Medical Record indicates this patient is: 74 year old female, She has a history of lung cancer diagnosed about 3 years ago Height: 5 ft Weight: 45 kg (99 ibs) (Calculated BMI: 19.3 kg/m2 ) Total Protein: 5.9 Albumin: 3.4 Also documented: Constitutional: PRESENT: anorexia, fatigue General appearance: PRESENT: no acute distress, thin Based on your medical judgement, please further clarify in the Progress Notes the diagnosis associated with these findings: Severe malnutrition / BMI 19.3 Moderate malnutrition / BMI 19.3 Mild malnutrition / BMI 19.3 Cachexia / BMI 19.3 Emaciation / BMI 19.3 Undernutrition / BMI 19.3 Other condition (please specify) None of the above / Not applicable Thank you for your consideration. BETH PyleN RN Clinical Combine Operator
[2019-10-03 05:57] LABS: ABSOLUTE EOSINOPHILS # (AUTO) 0.2 10^3/uL (0.0-0.6); ABSOLUTE LYMPHOCYTES (AUTO) 0.7 10^3/uL (0.5-4.7); ABSOLUTE MONOCYTES (AUTO) 0.6 10^3/uL (0.1-1.4); BASOPHILS % (AUTO) 0.3 % (0-2); EOSINOPHILS % (AUTO) 2.6 % (0-6); HEMATOCRIT 24.8 % (36.0-47.0); HEMOGLOBIN 8.5 g/dL (12.0-15.5); LYMPHOCYTES % (AUTO) 9.1 % (13-45); MEAN CORPUSCULAR HEMOGLOBIN 30.8 pg (27.0-33.4); MEAN CORPUSCULAR HGB CONC 34.4 g/dL (32.0-36.0); MEAN CORPUSCULAR VOLUME 90 fl (80-97); MONOCYTES % (AUTO) 7.7 % (3-13); PLATELET COUNT 286 10^3/uL (150-450); RED BLOOD COUNT 2.77 10^6/uL (3.72-5.28); RED CELL DISTRIBUTION WIDTH 15.2 % (11.5-14.0); SEGMENTED NEUTROPHILS % (AUTO) 80.3 % (42-78); TOTAL CELLS COUNTED % (AUTO) 100 %; WHITE BLOOD COUNT 7.5 10^3/uL (4.0-10.5)
[2019-10-03 06:21] LABS: ALBUMIN 3.1 g/dL (3.5-5.0); ALKALINE PHOSPHATASE 124 U/L (38-126); ANION GAP 7 (5-19); ASPARTATE AMINO TRANSFERASE 23 U/L (14-36); BILIRUBIN,TOTAL 0.2 mg/dL (0.2-1.3); BLOOD UREA NITROGEN 30 mg/dL (7-20); CALCIUM 9.2 mg/dL (8.4-10.2); CARBON DIOXIDE 19 mmol/L (22-30); CHLORIDE 106 mmol/L (98-107); GLUCOSE 92 mg/dL (75-110); POTASSIUM 4.4 mmol/L (3.6-5.0); TOTAL PROTEIN 5.9 g/dL (6.3-8.2)
[2019-10-03] MEDS: TRAMADOL HCL 50 MG TABLET PO PRN (10:07)
[2019-10-03] MEDS: MEGESTROL ACETATE 20 MG TABLET PO SCH (10:07)
[2019-10-03] MEDS: METOPROLOL SUCCINATE 25 MG TAB.SR.24H PO SCH (10:08)
[2019-10-03] MEDS: FOLIC ACID 1 MG TABLET PO SCH (10:09)
[2019-10-03] MEDS: AMLODIPINE BESYLATE 10 MG TABLET PO SCH (10:09)
--- NOTE | 2019-10-03 12:15 | PDOC DISCHARGE SUMMARY ---
Impression - Admit/DC Date/PCP Admission Date/Primary Care Provider: 09/30/19 17:24 ART VEGA MD Discharge Date: 10/03/19 - Discharge Diagnosis (1) Acute kidney injury Is this a current diagnosis for this admission?: Yes (2) Hyponatremia Is this a current diagnosis for this admission?: Yes (3) Anemia Is this a current diagnosis for this admission?: Yes (4) Malignant neoplasm of lung Is this a current diagnosis for this admission?: Yes (5) Mild malnutrition Is this a current diagnosis for this admission?: Yes - Additional Information Discharge Diet: Regular Discharge Activity: Activity As Tolerated Referrals: ART VEGA MD [Primary Care Provider] - Home Medications: RX: Amlodipine Besylate [Norvasc 10 mg Tablet] 10 mg PO DAILY 09/03/12 RX: Metoprolol Succinate [Toprol Xl 25 mg Tab.sr] 1 tab PO DAILY 03/08/16 RX: Elderberry Fruit and Flower [Black Elderberry 575 mg Cap] 1 cap PO DAILY 09/30/19 RX: Folic Acid [Folvite 1 mg Tablet] 1 mg PO DAILY 09/30/19 RX: Megestrol Acetate [Megace 20 mg Tablet] 40 mg PO BID 09/30/19 RX: Osimertinib Mesylate [Tagrisso] 80 mg PO DAILY 09/30/19 RX: Tramadol HCl [Ultram 50 mg Tablet] 50 mg PO BIDP PRN 09/30/19 RX: Valsartan [Diovan 160 mg Tablet] 160 mg PO DAILY 09/30/19 History of Present Illiness History of Present Illness: KYE SANDRA is a 74 year old female, She has a history of lung cancer diagnosed about 3 years ago,, I saw her in the office on September 27, 2019 when she came for follow-up evaluation,The blood work demonstrated serum creatinine 1.8, sodium 128 hemoglobin 8.1., Patient was called from home to be admitted directly to the hospital. She recently was in the [facility] when she had upper GI bleed, she underwent upper endoscopy in the [facility], I do not have details of the procedure. The blood work that was done in the hospital also demonstrated anemia but the iron indices is consistent with anemia of chronic disease Hospital Course Hospital Course: Patient was admitted for the management of hyponatremia, prerenal azotemia, ane danielle of chronic disease. She was treated with IV normal saline on admission the serum creatinine was 1.7, kidney ultrasound was done, the echogenicity of the kidney ultrasound suggest medical renal disease. She probably have underlining chronic kidney disease with a superimposed acute kidney injury due to dehydration. She has mild malnutrition, the BMI was 19.She has anemia of chronic disease, with hydration there was near normalization of serum creatinine suggesting prerenal component, dehydration Physical Exam Vital Signs: Temp Pulse Resp BP Pulse Ox 97.6 F 85 17 170/65 H 100 10/03/19 07:50 10/03/19 07:50 10/03/19 07:50 10/03/19 07:50 10/03/19 07:50 Intake & Output 10/02/19 10/03/19 10/04/19 06:59 06:59 06:59 Intake Total 3090 3280 Output Total 2300 2300 Balance 790 980 Weight 45 kg 45.6 kg General appearance: PRESENT: no acute distress Eye exam: PRESENT: PERRLA Respiratory exam: PRESENT: clear to auscultation claire Cardiovascular exam: PRESENT: +S1, +S2 GI/Abdominal exam: PRESENT: soft Neurological exam: PRESENT: alert Results Laboratory Results: WBC 7.5 10^3/uL (4.0-10.5) 10/03/19 05:22 RBC 2.77 10^6/uL (3.72-5.28) L 10/03/19 05:22 Hgb 8.5 g/dL (12.0-15.5) L 10/03/19 05:22 Hct 24.8 % (36.0-47.0) L 10/03/19 05:22 MCV 90 fl (80-97) 10/03/19 05:22 MCH 30.8 pg (27.0-33.4) 10/03/19 05:22 MCHC 34.4 g/dL (32.0-36.0) 10/03/19 05:22 RDW 15.2 % (11.5-14.0) H 10/03/19 05:22 Plt Count 286 10^3/uL (150-450) 10/03/19 05:22 Lymph % (Auto) 9.1 % (13-45) L 10/03/19 05:22 [place] % (Auto) 7.7 % (3-13) 10/03/19 05:22 Eos % (Auto) 2.6 % (0-6) 10/03/19 05:22 Baso % (Auto) 0.3 % (0-2) 10/03/19 05:22 Absolute Neuts (auto) 6.0 10^3/uL (1.7-8.2) 10/03/19 05:22 Absolute Lymphs (auto) 0.7 10^3/uL (0.5-4.7) 10/03/19 05:22 Absolute Monos (auto) 0.6 10^3/uL (0.1-1.4) 10/03/19 05:22 Absolute Eos (auto) 0.2 10^3/uL (0.0-0.6) 10/03/19 05:22 Absolute Basos (auto) 0.0 10^3/uL (0.0-0.2) 10/03/19 05:22 Seg Neutrophils % 80.3 % (42-78) H 10/03/19 05:22 Platelet Estimate Cancelled 10/01/19 08:13 Sodium 131.8 mmol/L (137-145) L 10/03/19 05:22 Potassium 4.4 mmol/L (3.6-5.0) 10/03/19 05:22 Chloride 106 mmol/L (98-107) 10/03/19 05:22 Carbon Dioxide 19 mmol/L (22-30) L 10/03/19 05:22 Anion Gap 7 (5-19) 10/03/19 05:22 BUN 30 mg/dL (7-20) H 10/03/19 05:22 Creatinine 1.47 mg/dL (0.52-1.25) H 10/03/19 05:22 Est GFR ( Amer) 42 (>60) L 10/03/19 05:22 Est GFR (Non-Af Amer) Cancelled 10/01/19 08:13 Est GFR (MDRD) Non-Af 35 (>60) L 10/03/19 05:22 Glucose 92 mg/dL (75-110) 10/03/19 05:22 Serum Osmolality 276 mOsm/kg (275-301) 09/30/19 14:36 Calcium 9.2 mg/dL (8.4-10.2) 10/03/19 05:22 Iron 18.4 ug/dL (37-170) L 09/30/19 14:36 TIBC 195 ug/dL (250-450) L 09/30/19 14:36 % Saturation 9 % 09/30/19 14:36 Ferritin 345.00 ng/mL (11.1-264.0) H 09/30/19 14:36 Total Bilirubin 0.2 mg/dL (0.2-1.3) 10/03/19 05:22 Direct Bilirubin 0.0 mg/dL (0.0-0.4) 10/03/19 05:22 Neonat Total Bilirubin Not Reportable 10/03/19 05:22 Neonat Direct Bilirubin Not Reportable 10/03/19 05:22 Neonat Indirect Bili Not Reportable 10/03/19 05:22 AST 23 U/L (14-36) 10/03/19 05:22 ALT 8 U/L (<35) 10/03/19 05:22 Alkaline Phosphatase 124 U/L (38-126) 10/03/19 05:22 Total Protein 5.9 g/dL (6.3-8.2) L 10/03/19 05:22 Albumin 3.1 g/dL (3.5-5.0) L 10/03/19 05:22 EGFR Cancelled 10/01/19 08:13 Urine Color STRAW 09/30/19 12:45 Urine Appearance CLEAR 09/30/19 12:45 Urine pH 7.0 (5.0-9.0) 09/30/19 12:45 Ur Specific [place] 1.005 09/30/19 12:45 Urine Protein 30 mg/dL (NEGATIVE) H 09/30/19 12:45 Urine Glucose (UA) NEGATIVE mg/dL (NEGATIVE) 09/30/19 12:45 Urine Ketones NEGATIVE mg/dL (NEGATIVE) 09/30/19 12:45 Urine Blood NEGATIVE (NEGATIVE) 09/30/19 12:45 Urine Nitrite NEGATIVE (NEGATIVE) 09/30/19 12:45 Urine Bilirubin NEGATIVE (NEGATIVE) 09/30/19 12:45 Urine Urobilinogen NEGATIVE mg/dL (<2.0) 09/30/19 12:45 Ur Leukocyte Esterase NEGATIVE (NEGATIVE) 09/30/19 12:45 Urine RBC (Auto) 0 /HPF 09/30/19 12:45 Urine Osmolality 189 mOsm/kg (300-900) L 09/30/19 12:45 Urine Ascorbic Acid NEGATIVE (NEGATIVE) 09/30/19 12:45 Slides for Path Review Cancelled 10/01/19 08:13 Impressions: Renal Ultrasound 09/30/19 00:00 IMPRESSION: There is increased echogenicity in each kidney that may suggest medical renal disease. No acute finding. Chest X-Ray 09/30/19 13:08 IMPRESSION: Right hilar fullness consistent with recent mass and/or adenopathy demonstrated on CT. Probable scarring in the right upper lobe. Small nodules demonstrated on CT are less apparent on conventional radiograph. Stroke Is this a Stroke Patient?: No Acute Heart Failure - Is this a Heart Failure Patient?: No
[2019-10-03 12:48] VITALS: BP 129/58
== END 2019-10-03 13:46 | disposition home or self-care (01) | DRG 683 ==
LOC: 3S 11:47 → OBSVTOIN 17:24
PROVIDERS: ADMIT Internal Medicine; ATTEND Internal Medicine
DX: N17.9 Acute kidney failure, unspecified (principal); E87.1 Hypo-osmolality and hyponatremia; C34.91 Malignant neoplasm of unspecified part of right bronchus or lung; E44.1 Mild protein-calorie malnutrition; Z68.1 Body mass index [BMI] 19.9 or less, adult; D63.0 Anemia in neoplastic disease; I10 Essential (primary) hypertension; E86.0 Dehydration
CPT/HCPCS: 36415; 71045; 76775; 80048; 80053; 80076; 81001; 82728; 83540; 83550; 83930; 83935; 85025; 85027; G0378; G0379; J7030

== ENCOUNTER → 2019-10-10 | Outpatient (CLI) | payer MEDICARE, OTHER ==
--- NOTE | 2019-10-10 12:33 | RADIOLOGY REPORT (SQ) ---
EXAM DESCRIPTION: MRI LUMBAR SPINE WITHOUT IMAGES COMPLETED DATE/TIME: 10/10/2019 11:26 am REASON FOR STUDY: LUMBAR RADICULOPATHY (M54.16) M54.16 RADICULOPATHY, LUMBAR REGION COMPARISON: 11/26/2017 TECHNIQUE: Sagittal and Axial imaging includes T1, T2, STIR and gradient echo sequences. Coronal T2/ HASTE imaging. LIMITATIONS: None. FINDINGS: VISUALIZED UPPER ABDOMEN: Limited evaluation. No acute or suspicious findings suggested. SEGMENTATION: No transitional anatomy. The lowest well-developed disc space is labeled L5-S1. ALIGNMENT: Stable 25% anterolisthesis of L4 on L5. VERTEBRAE: Intact. Small lesion in the anterior aspect of L2 is grossly unchanged. BONE MARROW: Marrow replacement previously described at T11 is no longer appreciated no marrow edema. DISC SIGNAL: Loss of normal water signal throughout the lumbar spine consistent with desiccation. POSTERIOR ELEMENTS: Bilateral spondylosis at L4. HARDWARE: None in the spine. CORD AND CONUS: Normal in size and signal intensity. Conus at the appropriate level. SOFT TISSUES: No aortic aneurysm seen. No bulky retroperitoneal adenopathy or mass. No paraspinal mas s or fluid. L1-L2: No significant spinal stenosis or exit foraminal stenosis. L2-L3: No significant spinal stenosis or exit foraminal stenosis. L3-L4: No significant spinal stenosis or exit foraminal stenosis. L4-L5: Anterolisthesis of L4 on L5 with broad-based annular disc bulging. This results in slight eff acement anterior thecal sac. There is bilateral foraminal stenosis right greater than left. L5-S1: No significant spinal stenosis or exit foraminal stenosis. LOWER THORACIC: Incompletely imaged. No stenosis seen. SACRUM: Visualized upper sacrum intact. OTHER: No other significant findings. IMPRESSION: Stable anterolisthesis of L4 on L5 resulting in asymmetric narrowing of the right neural foramina. Marrow replacement at T11 is not appreciated on today's exam. Small metastatic lesion le nely at L2 is unchanged. TECHNICAL DOCUMENTATION: JOB ID: [id number] [employer]- All Rights Reserved Reading location - IP/workstation name: [email or web address]
== END ==
LOC: RAD 10:45
PROVIDERS: ATTEND Internal Medicine
DX: M51.16 Intervertebral disc disorders with radiculopathy, lumbar region (principal)
CPT/HCPCS: 72148

== ENCOUNTER → 2019-11-01 | Outpatient (CLI) | payer MEDICARE, OTHER ==
--- NOTE | 2019-11-02 16:34 | RADIOLOGY REPORT (SQ) ---
EXAM DESCRIPTION: PET CT SKULL/THIGH IMAGES COMPLETED DATE/TIME: 11/01/2019 2:16 pm REASON FOR STUDY: C34.12 MALIGNANT NEOPLASM OF UPPER LOBE, LEFT BRONCHUS OR LUNG C34.12 MALIGNANT N EOPLASM OF UPPER LOBE, LEFT BRONCHUS OR lungs. Stage IV lung cancer initially diagnosed in 2013. In creasing low back pain radiating down both legs. Metastatic L2 lesions seen on MRI of the lumbar spi ne. Currently receiving chemotherapy. Increasing back pain, radiating down the legs, concern for sp inal metastasis. COMPARISON: MRI lumbar spine, 10/10/2019. CT abdomen and pelvis, 09/09/2019. PET CT, 09/19/2018. RADIONUCLIDE AND DOSE: 8.91 mCi F18 FDG The route of agent administration: Intravenous FASTING BLOOD SUGAR: 88 mg/dl CONTRAST TYPE AND DOSE: No CT contrast given. TECHNIQUE: Blood glucose level was verified. Above dose of FDG was injected intravenously. 2-D seg mented attenuation correction images were obtained from the base of the skull to the midthighs. Nonc ontrast CT images were obtained for attenuation correction and fusion with emission images. CT image s were performed without oral or intravenous contrast and are not sensitive for parenchymal lesions. A series of overlapping emission PET images were obtained. Images reviewed and manipulated at [facility] work station by the radiologist. Images stored on PACS. LIMITATIONS: None. FINDINGS: HEAD AND NECK: No areas of abnormal metabolic activity in the soft tissues of the head and neck. CHEST: No significant interval change in chronic consolidation/ masslike area of soft tissue in the m edial right middle lobe measuring 2.7 x 2.4 cm, with hypermetabolic activity SUV 6.8, decreased from 8.2 on previous examination. A right hilar lymph node demonstrates minimal residual hypermetabolic a ctivity, measuring 8 x 5 mm, possibly pole of PET detection. New areas of tree-in-bud nodularity and reticular and nodular consolidation in the right upper lobe with mild FDG activity SUV 2.3, suspicio us for infectious/ inflammatory process. There is a 5 mm solid nodule in the right upper lobe new fr om prior (image 83). Nodularity and ground-glass attenuation in the right lower lobe has also increa sed slightly, with a new 1.5 cm spiculated nodule in the right lower lobe (image 93), demonstrating m inimal hypermetabolic activity, possibly infectious/ inflammatory process. Left lung remains clear. No pleural effusion. ABDOMEN AND PELVIS: No areas of abnormal metabolic activity in the abdomen or pelvis. Expected physi ologic activity is present in the genitourinary system and bowel. Background hepatic activity is 2.0 . PROXIMAL LOWER EXTREMITIES: There is a new area of soft tissue attenuation with areas of calcificatio n in the left pelvis measuring about 6.5 x 3.6 cm demonstrating some peripheral metabolic activity, m ost consistent with myositis ossifications. No pelvic adenopathy. BONES: There are new bilateral sacral ala insufficiency fractures with mild metabolic activity consis tent with recent fractures. There is also a new nondisplaced fracture of the left pubic symphysis an d superior pubic ramus. No definite evidence of underlying osseous metastasis. ADDITIONAL CT FINDINGS: No additional significant findings on the noncontrast CT images. OTHER: No other significant findings. IMPRESSION: 1. New bilateral sacral ala insufficiency fractures and a new left superior pubic ramus and pubic sym physis fractures. No definite underlying pathologic lesion. Findings may be related to recent traum a/ fall. There is also new myositis ossifications in the left medial pelvis soft tissues. Clinical correlation. 2. Interval increase in nodularity in the right upper and lower lobes with some areas having tree-in- bud and consolidative appearance, suggestive of infectious/ inflammatory process. Metastatic disease is not entirely excluded. The previously described medial right middle lobe consolidation/soft tiss ue has decreased in FDG activity and with stable size since previous. A follow-up CT of the chest in 3 months is recommended to confirm resolution of the components which appear to be infectious/inflam matory. TECHNICAL DOCUMENTATION: JOB ID: [id number] 2010 [employer] All Rights Reserved Reading location - IP/workstation name: [email or web address]
== END ==
LOC: RAD 08:45
PROVIDERS: ATTEND Internal Medicine
DX: C34.12 Malignant neoplasm of upper lobe, left bronchus or lung (principal)
CPT/HCPCS: 78815; A9552

== ENCOUNTER 2019-11-10 01:33 | Inpatient (IN) | payer MEDICARE, OTHER ==
[2019-11-10] MEDS ORDERED: OXYCODONE-ACETAMINOPHEN 5-325 MG TABLET PO ONE (02:11)
[2019-11-10] MEDS ORDERED: ONDANSETRON 4 MG TAB.RAPDIS PO ONE (02:11)
--- NOTE | 2019-11-10 02:14 | ER Document Report ---
ED Medical Screen (RME) - General Chief Complaint: Chest Pain Stated Complaint: CHEST PAIN Time Seen by Provider: 11/10/19 02:06 Primary Care Provider: ART VEGA MD [Primary Care Provider] - Follow up as needed Notes: 74-year-old female with chief complaint of pain in her upper abdomen and lower chest that started tonight. Daughter states she almost never complained of pain but patient appeared to be in significant pain, patient points to her epigastric area as the location of pain. She has not had any vomiting, fever, cough, and she has no other complaints. She has a history of lung cancer with liver metastasis, previously on chemotherapy but not currently. TRAVEL OUTSIDE OF THE [place] IN LAST 30 DAYS: No - Related Data Allergies/Adverse Reactions: No Known Allergies Allergy (Verified 03/07/16 19:51) Past Medical History - Past Medical History Cardiac Medical History: Reports: Hx Hypertension Denies: Hx Coronary Artery Disease, Hx Heart Attack Pulmonary Medical History: Denies: Hx Asthma, Hx Bronchitis, Hx COPD, Hx Pneumonia Neurological Medical History: Denies: Hx Cerebrovascular Accident, Hx Seizures Malignancy Medical History: Reports: Hx Liver Cancer Musculoskeltal Medical History: Reports Hx Arthritis Psychiatric Medical History: Denies: Hx Depression - Immunizations Hx Diphtheria, Pertussis, Tetanus Vaccination: Yes Physical Exam - Vital signs Vitals: Temp Pulse Resp BP Pulse Ox 98.3 F 93 20 158/86 H 99 11/10/19 01:46 11/10/19 01:46 11/10/19 01:46 11/10/19 01:46 11/10/19 01:46 - Abdominal Tenderness: Tender - Patient is very tender in the epigastric area with palpation, lower abdomen seems benign Course - Re-evaluation Re-evalutation: Patient does not appear to be in distress and her vital signs are unremarkable, however she is very tender in the general upper abdomen. Because of extended wait time she will be medicated p.o. now and we will perform all testing i ncluding CAT scan. I have greeted and performed a rapid initial assessment of this patient. A comprehensive ED assessment and evaluation of the patient, analysis of test results and completion of the medical decision making process will be conducted by additional ED providers. - Vital Signs Vital signs: Temp Pulse Resp BP Pulse Ox 98.3 F 93 20 158/86 H 99 11/10/19 01:46 11/10/19 01:46 11/10/19 01:46 11/10/19 01:46 11/10/19 01:46 Doctor's Discharge - Discharge Referrals: ART VEGA MD [Primary Care Provider] - Follow up as needed
[2019-11-10 03:03] LABS: ABSOLUTE EOSINOPHILS # (AUTO) 0.2 10^3/uL (0.0-0.6); ABSOLUTE LYMPHOCYTES (AUTO) 0.6 10^3/uL (0.5-4.7); ABSOLUTE MONOCYTES (AUTO) 0.4 10^3/uL (0.1-1.4); ABSOLUTE NEUT (AUTO) 7.9 10^3/uL (1.7-8.2); BASOPHILS % (AUTO) 0.5 % (0-2); EOSINOPHILS % (AUTO) 2.6 % (0-6); HEMATOCRIT 31.7 % (36.0-47.0); HEMOGLOBIN 10.5 g/dL (12.0-15.5); LYMPHOCYTES % (AUTO) 6.8 % (13-45); MEAN CORPUSCULAR VOLUME 91 fl (80-97); MONOCYTES % (AUTO) 4.6 % (3-13); PLATELET COUNT 393 10^3/uL (150-450); RED BLOOD COUNT 3.48 10^6/uL (3.72-5.28); RED CELL DISTRIBUTION WIDTH 14.3 % (11.5-14.0); SEGMENTED NEUTROPHILS % (AUTO) 85.5 % (42-78); TOTAL CELLS COUNTED % (AUTO) 100 %; WHITE BLOOD COUNT 9.3 10^3/uL (4.0-10.5)
[2019-11-10 03:13] LABS: ALBUMIN 3.8 g/dL (3.5-5.0); ALKALINE PHOSPHATASE 127 U/L (38-126); ANION GAP 11 (5-19); ASPARTATE AMINO TRANSFERASE 25 U/L (14-36); BILIRUBIN,DIRECT 0.3 mg/dL (0.0-0.4); BILIRUBIN,TOTAL 0.5 mg/dL (0.2-1.3); BLOOD UREA NITROGEN 34 mg/dL (7-20); CALCIUM 9.6 mg/dL (8.4-10.2); CARBON DIOXIDE 17 mmol/L (22-30); CHLORIDE 109 mmol/L (98-107); GLUCOSE 99 mg/dL (75-110); POTASSIUM 4.1 mmol/L (3.6-5.0); TOTAL PROTEIN 6.8 g/dL (6.3-8.2)
--- NOTE | 2019-11-10 04:25 | RADIOLOGY REPORT (SQ) ---
CLINICAL INDICATION: sharp epigastric pain; hx stage 4 cancer in rt lung. CREAT 1.56. . TECHNIQUE: Contrast enhanced spiral axial CT imaging was obtained of the abdomen and pelvis with multiplanar reconstructions. This exam was performed according to our departmental dose-optimization program, which includes automated exposure control, adjustment of the mA and/or kV according to patient size and/or use of iterative reconstruction techniques. COMPARISON: September 09, 2019. CORRELATION: None. FINDINGS: Abdomen: The lung bases demonstrate chronic lung disease right middle lobe, similar to prior. Presumably this is related to the known carcinoma. The heart is prominent but stable. No evidence of pleural or pericardial fluid. The liver is of normal size contour and attenuation. The gallbladder is not convincingly seen. The pancreas is unremarkable. The spleen is unremarkable. The adrenals are unremarkable. The kidneys appear grossly normal without evidence of urolithiasis or hydronephrosis. A single dot of free intraperitoneal air. . Small amount of free intraperitoneal fluid. No bulky adenopathy. Abdominal aorta is calcified but nonaneurysmal. Pelvis: The bowel is nonobstructed. The bowel is unopacified with oral contrast. Pelvic contents are unremarkable. The appendix is not convincingly seen. Edema and thickening of the stomach Visualized bones demonstrate acute/early subacute fracture of the left pubis and through bilateral sacral ala, adverse change from August. Possible nondisplaced fracture anterior, right acetabulum. Please correlate with history. Additional fracture right transverse process of L5. Grade 1 anterior spinal listhesis of L4 on L5 due to chronic bilateral pars interarticularis defects. This is similar to prior. IMPRESSION: Parenchymal lung change, similar to prior. Single dot of free intraperitoneal air, the source of which is not seen. Small amount of free intraperitoneal fluid. Pelvic fractures, as described. These are adverse change when compared to prior. Adjacent hematoma. Edema and thickening of the stomach
--- NOTE | 2019-11-10 04:27 | RADIOLOGY REPORT (SQ) ---
CLINICAL INDICATION: upper abd/lower chest pain. TECHNIQUE: A single portable AP view was obtained of the chest at 0350 hours. COMPARISON: September 30, 2019. FINDINGS: The cardiomediastinal silhouette is enlarged but stable. The lungs demonstrate progressive airspace disease right lung base.. Small right effusion which also appears progressive. No pneumothorax. The visualized bones are unremarkable. IMPRESSION: Progressive airspace disease right lung base. Small progressive right effusion.
[2019-11-10] MEDS ORDERED: MORPHINE SULFATE 10 MG/ML INJ IV ONE (05:17)
[2019-11-10] MEDS ORDERED: ONDANSETRON HCL INJ/PF 4 MG/2 ML SDV IV ONE (05:17)
--- NOTE | 2019-11-10 05:35 | ER Document Report ---
ED General - General Chief Complaint: Epigastric Pain Stated Complaint: CHEST PAIN Time Seen by Provider: 11/10/19 02:06 Primary Care Provider: ART VEGA MD [ACTIVE STAFF] - Follow up as needed TRAVEL OUTSIDE OF THE [place] IN LAST 30 DAYS: No - HPI Notes: Patient is a 74-year-old female brought to the emergency department for evaluation of sudden onset epigastric pain. She states she woke up and had it at midnight. She really cannot describe it for me other than to state "it is there." She denies any radiation. She said no fevers or chills. No nausea or vomiting. She had a normal bowel movement yesterday. She states her pain is currently severe. Nothing seems to make it better or worse. - Related Data Allergies/Adverse Reactions: No Known Allergies Allergy (Verified 03/07/16 19:51) Home Medications: lyrica, megase, norvasc, losartan Past Medical History - General Information source: Patient, Relative - Social History Smoking Status: Never Smoker Family History: Reviewed & Not Pertinent - Past Medical History Cardiac Medical History: Reports: Hx Hypertension Denies: Hx Coronary Artery Disease, Hx Heart Attack Pulmonary Medical History: Denies: Hx Asthma, Hx Bronchitis, Hx COPD, Hx Pneumonia Neurological Medical History: Denies: Hx Cerebrovascular Accident, Hx Seizures Malignancy Medical History: Reports: Hx Liver Cancer, Hx Lung Cancer - Stage IV Musculoskeletal Medical History: Reports Hx Arthritis, Reports Hx Musculoskeletal Trauma - Sacral fractures, known from prior PET scan Psychiatric Medical History: Denies: Hx Depression - Immunizations Hx Diphtheria, Pertussis, Tetanus Vaccination: Yes Hx Pneumococcal Vaccination: 08/14/12 Review of Systems - Review of Systems Constitutional: Weakness EENT: No symptoms reported Cardiovascular: No symptoms reported Respiratory: No symptoms reported Gastrointestinal: See HPI Genitourinary: No symptoms reported Musculoskeletal: No symptoms reported Skin: No symptoms reported Neurological/Psychological: No symptoms reported Physical Exam - Vital signs Vitals: Temp Pulse Resp BP Pulse Ox 98.3 F 93 20 158/86 H 99 11/10/19 01:46 11/10/19 01:46 11/10/19 01:46 11/10/19 01:46 11/10/19 01:46 - Notes Notes: This is a frail-appearing 74-year-old female who appears her stated age, no acute distress. Vital signs reviewed, please refer to chart. Head is normoceph alic, atraumatic. Pupils equal round, reactive to light. Neck is supple without meningismus. Heart is regular rate and rhythm. Lungs are clear to auscultation bilaterally. Abdomen is soft, diffusely tender, most significantly in the epigastric region, with some voluntary guarding, no rebound. Normoactive bowel sounds throughout. Extremities without cyanosis, clubbing. Posterior calves are nontender. Peripheral pulses are equal. Skin is warm and dry. Patient is awake, alert, neurological exam is nonfocal. Course - Re-evaluation Re-evalutation: 11/10/19 05:33 Patient presents to the emergency department for evaluation. He she was initially seen through triage, had laboratory investigations and imaging ordered. Imaging revealed no fractures, already known to the family, as well as free intraperitoneal air. I did speak with Dr. Hammer, on-call surgeon. He did come and evaluate the patient. He suspects a perforated ulcer, but notes that this patient is an extremely poor surgical candidate. He does not believe that exploratory laparoscopy, which would be normally indicated, is appropriate in this patient with stage IV cancer. He has come down to discuss this with the patient as well as the patient's daughter. I did speak on the phone with Dr. Blakely as well. I notified her of this finding. We discussed options. She advises to keep the patient as comfortable as possible. The patient had already been administered morphine, awaiting response. Either herself or Dr. Vicky dye will come down to the emergency department to further discuss options with her, including palliative care/hospice. Patient is currently stable, we will continue to monitor. 11/10/19 05:46 Dr. Hammer talked at length with the patient as well as the patient's daughter. They understand that she is not a surgical candidate, but they do wish to try something. It was agreed to try IV antibiotics and admission to the hospital. Patient will be treated with ceftriaxone, IV Diflucan, IV Protonix. I spoke with Dr. Ricci, he will admit the patient for further care. - Vital Signs Vital signs: Temp Pulse Resp BP Pulse Ox 98.3 F 93 25 H 159/85 H 100 11/10/19 01:46 11/10/19 01:46 11/10/19 05:01 11/10/19 05:01 11/10/19 05:01 - Laboratory Result Diagrams: 11/10/19 02:48 11/10/19 02:48 Laboratory results interpreted by me: 11/10/19 11/10/19 02:48 02:48 RBC 3.48 L Hgb 10.5 L Hct 31.7 L RDW 14.3 H Lymph % (Auto) 6.8 L Seg Neutrophils % 85.5 H Sodium 136.5 L Chloride 109 H Carbon Dioxide 17 L BUN 34 H Creatinine 1.59 H Est GFR ( Amer) 39 L Est GFR (MDRD) Non-Af 32 L Alkaline Phosphatase 127 H Lipase 641.2 H - Diagnostic Test Radiology reviewed: Image reviewed, Reports reviewed Radiology results interpreted by me: 11/10/19 05:35 Abdomen/Pelvis CT 11/10/19 02:11 IMPRESSION: Parenchymal lung change, similar to prior. Single dot of free intraperitoneal air, the source of which is not seen. Small amount of free intraperitoneal fluid. Pelvic fractures, as described. These are adverse change when compared to prior. Adjacent hematoma. Edema and thickening of the stomach Chest X-Ray 11/10/19 02:11 IMPRESSION: Progressive airspace disease right lung base. Small progressive right effusion. Discharge - Discharge Clinical Impression: Free intraperitoneal air Condition: Stable Disposition: ADMITTED INPATIENT Admitting Provider: [facility] Unit Admitted: Medical Floor Referrals: ART VEGA MD [ACTIVE STAFF] - Follow up as needed
[2019-11-10] MEDS ORDERED: CEFTRIAXONE 1 GM/D5W RTU 1 GM/50 ML RTUPB IV ONE (05:42)
[2019-11-10] MEDS ORDERED: FLUCONAZOLE 200 MG/NS RTU 200 MG/100 ML RTUPB IV ONE ×2 (05:42→09:00)
[2019-11-10] MEDS ORDERED: PANTOPRAZOLE SODIUM 40 MG VIAL IV ONE (05:43)
[2019-11-10 05:44] LABS: APPEARANCE,URINE CLEAR; BILIRUBIN,URINE NEGATIVE (NEGATIVE); COLOR,URINE STRAW; GLUCOSE, URINE NEGATIVE (NEGATIVE); KETONES,URINE NEGATIVE (NEGATIVE); LEUKOCYTE ESTERASE,URINE NEGATIVE (NEGATIVE); NITRITE,URINE NEGATIVE (NEGATIVE); PROTEIN,URINE 100 mg/dL (NEGATIVE); URINE SPECIFIC GRAVITY 1.016; UROBILINOGEN,URINE NEGATIVE mg/dL (<2.0)
[2019-11-10 05:51] LABS: ADD MANUAL MICROSCOPIC YES
[2019-11-10 05:56] LABS: WBC,URINE RARE /HPF
[2019-11-10] MEDS ORDERED: METRONIDAZOLE 500 MG/NS RTU 500 MG/100 ML RTUPB IV ONE (05:57)
--- NOTE | 2019-11-10 05:57 | PDOC CONSULTATION ---
Consultation Consult Date: 11/10/19 Provider Consulted: SURGICAL SURGICALIST Consult reason:: Abdominal pain, free air History of Present Illness Admission Date/PCP: ART VEGA MD History of Present Illness: KYE SANDRA is a 74 year old female with multiple medical issues, includin g dementia, stage IV lung cancer, osteoporosis, frequent falls, peripheral arterial disease. She is seen in consultation at the request of the emergency room physician. The patient presents with epigastric abdominal pain that is severe. She reports that the pain is unrelenting. It had a sudden onset last night. At its worst, she rates her pain is 8 out of 10. Her pain radiates into her back and chest. Nothing makes it better or worse. She denies nausea, vomiting, diarrhea, shortness of breath, headache. She does report epigastric pain that radiates into her chest, dizziness, frequent falls. Her daughter is accompanying her, and reports dementia-like symptoms. Past Medical History Cardiac Medical History: Reports: Hypertension Denies: Coronary Artery Disease, Myocardial Infarction Pulmonary Medical History: Denies: Asthma, Bronchitis, Chronic Obstructive Pulmonary Disease (COPD), Pneumonia Neurological Medical History: Denies: Seizures Malignancy Medical History: Reports: Liver Cancer, Lung Cancer - Stage IV Musculoskeltal Medical History: Reports: Arthritis Psychiatric Medical History: Denies: Depression Hematology: Reports: Anemia Social History Smoking Status: Never Smoker Frequency of Alcohol Use: None Hx Recreational Drug Use: No Drugs: None Hx Prescription Drug Abuse: No Family History Family History: Reviewed & Not Pertinent Parental Family History Reviewed: Yes Children Family History Reviewed: Yes Sibling(s) Family History Reviewed.: Yes Medication/Allergy Home Medications: Amlodipine Besylate [Norvasc 10 mg Tablet] 10 mg PO DAILY 09/03/12 Metoprolol Succinate [Toprol Xl 25 mg Tab.sr] 1 tab PO DAILY 03/08/16 Elderberry Fruit and Flower [Black Elderberry 575 mg Cap] 1 cap PO DAILY 09/30/19 Folic Acid [Folvite 1 mg Tablet] 1 mg PO DAILY 09/30/19 Megestrol Acetate [Megace 20 mg Tablet] 40 mg PO BID 09/30/19 Osimertinib Mesylate [Tagrisso] 80 mg PO DAILY 09/30/19 Tramadol HCl [Ultram 50 mg Tablet] 50 mg PO BIDP PRN 09/30/19 Valsartan [Diovan 160 mg Tablet] 160 mg PO DAILY 09/30/19 Allergies/Adverse Reactions: No Known Allergies Allergy (Verified 03/07/16 19:51) Review of Systems Constitutional: PRESENT: fatigue. ABSENT: chills, fever(s) Eyes: ABSENT: visual disturbances Ears: ABSENT: hearing changes Nose, Mouth, and Throat: ABSENT: sore throat Cardiovascular: PRESENT: chest pain Respiratory: ABSENT: cough, dyspnea Gastrointestinal: PRESENT: abdominal pain. ABSENT: nausea, vomiting Musculoskeletal: PRESENT: back pain Integumentary: ABSENT: pruritus, rash Neurological: ABSENT: confusion, convulsions, dizziness Psychiatric: ABSENT: anxiety, depression Endocrine: ABSENT: cold intolerance, heat intolerance Hematologic/Lymphatic: ABSENT: easy bleeding, easy bruising Physical Exam Vital Signs: Temp Pulse Resp BP Pulse Ox 98.3 F 93 25 H 159/85 H 100 11/10/19 01:46 11/10/19 01:46 11/10/19 05:01 11/10/19 05:01 11/10/19 05:01 Intake & Output 11/08/19 11/09/19 11/10/19 06:59 06:59 06:59 Weight 45.359 kg General appearance: PRESENT: cooperative, mild distress Head exam: PRESENT: atraumatic, normocephalic Eye exam: PRESENT: EOMI. ABSENT: scleral icterus Mouth exam: PRESENT: neck supple Neck exam: ABSENT: tenderness, thyromegaly, tracheal deviation Respiratory exam: PRESENT: unlabored. ABSENT: tachypnea, wheezes Cardiovascular exam: ABSENT: tachycardia GI/Abdominal exam: PRESENT: guarding - epigastrium, tenderness - epigastrium. ABSENT: distended Rectal exam: PRESENT: deferred Extremities exam: ABSENT: clubbing Neurological exam: PRESENT: alert, awake, oriented to person, oriented to place Psychiatric exam: ABSENT: agitated, anxious Skin exam: ABSENT: erythema, jaundice Results Laboratory Results: 11/10/19 02:48 11/10/19 02:48 11/10/19 11/10/19 11/10/19 02:48 02:48 02:48 WBC 9.3 RBC 3.48 L Hgb 10.5 L Hct 31.7 L MCV 91 MCH 30.0 MCHC 33.0 RDW 14.3 H Plt Count 393 Seg Neutrophils % 85.5 H Sodium 136.5 L Potassium 4.1 Chloride 109 H Carbon Dioxide 17 L Anion Gap 11 BUN 34 H Creatinine 1.59 H Est GFR ( Amer) 39 L Glucose 99 Lactic Acid 0.8 Calcium 9.6 Total Bilirubin 0.5 AST 25 Alkaline Phosphatase 127 H Total Protein 6.8 Albumin 3.8 Lipase 641.2 H 11/10/19 02:48 Troponin I < 0.012 Impressions: Abdomen/Pelvis CT 11/10/19 02:11 IMPRESSION: Parenchymal lung change, similar to prior. Single dot of free intraperitoneal air, the source of which is not seen. Small amount of free intraperitoneal fluid. Pelvic fractures, as described. These are adverse change when compared to prior. Adjacent hematoma. Edema and thickening of the stomach Chest X-Ray 11/10/19 02:11 IMPRESSION: Progressive airspace disease right lung base. Small progressive right effusion. Assessment & Plan - Diagnosis (1) Abdominal pain Qualifiers: Abdominal location: epigastric Qualified Code(s): R10.13 - Epigastric pain Is this a current diagnosis for this admission?: Yes (2) Free intraperitoneal air Is this a current diagnosis for this admission?: Yes - Plan Summary Plan Summary: 74-year-old female presenting with epigastric abdominal pain. She has several small collections of free intraperitoneal air on CT scan around the right lobe of the liver. With her constellation of symptoms, and findings on CT scan, I am suspicious for a perforated gastric or duodenal ulcer. I have discussed these findings with the family. I reviewed treatment modalities, including surgery versus comfort measures versus antibiotics alone. The family is not yet ready for comfort measures, however they do not want to pursue aggressive surgical intervention. The amount of air in the abdominal cavity is very small. It is possible that a small perforation may have already sealed. It may be prudent to try intravenous antibiotics and a reasonable amount of time, before initiating comfort measures. The family is firm in their belief that surgery is not in her best interest, given her current medical condition. I agree with this assessment. Surgery will sign off at this time. I would recommend broad-spectrum antibiotic and antifungal coverage as treatment.
[2019-11-10] MEDS ORDERED: NORMAL SALINE 1000 ML 1,000 ML IV PRN (08:05)
--- NOTE | 2019-11-10 08:08 | PDOC CONSULTATION ---
Consultation Consult Date: 11/10/19 Attending physician:: EDU BARAJAS Provider Consulted: ART VEGA Consult reason:: Patient well-known to our oncology clinic here with likely perforated viscus, history of stage IV lung cancer History of Present Illness Admission Date/PCP: 11/10/19 05:53 EDU BARAJAS MD Patient complains of: Epigastric pain, severe History of Present Illness: KYE SANDRA is a 74 year old female with known history of stage IV lung cancer. 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 She recently had PET/CT which indicated continued complete response, no uptake indicating active disease, but she did have noted pelvic and sacral insufficiency fractures. I just saw her 2 days ago in the office. The previous 2 weeks she was having a lot of low back and hip pain. Her PCP did do MRI of the spine looking for causes and that was negative. When we had the PET/CT findings, I called orthopedic surgery who reviewed the images and felt these insufficiency fractures do not require any surgical approach and will heal on their own as they are basically hairline fractures. Actually when I saw her 2 days ago, her pain was much better. We still held her oral medication, and we were going to start it next week. About 24 hours after the visit, and about 12 hours prior to admission she began having some epigastric pain, it worsened over the ensuing 8 hours and ultimately she felt like she had to present to the ED with severe pain. She had CT of the abdomen pelvis which indicated a small amount of free air in the upper abdomen. But no other major findings except of some thickening in the stomach. Surgery saw her, and patient and family were adamant against surgery, but it was felt that this is probably a small perforated gastric ulcer. But at present, medical management was undertaken because of her medical issues as well as her wishes. She is currently on IV fluids, IV antibiotics, and IV pain medications. Past Medical History Cardiac Medical History: Reports: Hypertension Denies: Coronary Artery Disease, Myocardial Infarction Pulmonary Medical History: Denies: Asthma, Bronchitis, Chronic Obstructive Pulmonary Disease (COPD), Pn [facility] Medical History: Denies: Seizures Malignancy Medical History: Reports: Liver Cancer, Lung Cancer - Stage IV Musculoskeltal Medical History: Reports: Arthritis Psychiatric Medical History: Denies: Depression Hematology: Reports: Anemia Past Surgical History Past Surgical History: Reports: Other - Pleurx catheter placement and removal, rebiopsy with bronchoscopy Social History Information Source: Patient Smoking Status: Never Smoker Frequency of Alcohol Use: None Hx Recreational Drug Use: No Drugs: None Hx Prescription Drug Abuse: No - Advance Directive Resuscitation Status: Full Code Family History Family History: Reviewed & Not Pertinent Parental Family History Reviewed: Yes Children Family History Reviewed: Yes Sibling(s) Family History Reviewed.: Yes Medication/Allergy Home Medications: Amlodipine Besylate [Norvasc 10 mg Tablet] 10 mg PO DAILY 09/03/12 Metoprolol Succinate [Toprol Xl 25 mg Tab.sr] 1 tab PO DAILY 03/08/16 Elderberry Fruit and Flower [Black Elderberry 575 mg Cap] 1 cap PO DAILY 09/30/19 Folic Acid [Folvite 1 mg Tablet] 1 mg PO DAILY 09/30/19 Megestrol Acetate [Megace 20 mg Tablet] 40 mg PO BID 09/30/19 Osimertinib Mesylate [Tagrisso] 80 mg PO DAILY 09/30/19 Tramadol HCl [Ultram 50 mg Tablet] 50 mg PO BIDP PRN 09/30/19 Valsartan [Diovan 160 mg Tablet] 160 mg PO DAILY 09/30/19 Allergies/Adverse Reactions: No Known Allergies Allergy (Verified 03/07/16 19:51) Review of Systems Constitutional: ABSENT: chills, fever(s), headache(s), weight gain, weight loss Eyes: ABSENT: visual disturbances Ears: ABSENT: hearing changes Cardiovascular: ABSENT: chest pain, dyspnea on exertion, edema, orthropnea, palpitations Respiratory: ABSENT: cough, hemoptysis Gastrointestinal: ABSENT: abdominal pain, constipation, diarrhea, hematemesis, hematochezia, nausea, vomiting Genitourinary: ABSENT: dysuria, hematuria Musculoskeletal: ABSENT: joint swelling Integumentary: ABSENT: rash, wounds Neurological: ABSENT: abnormal gait, abnormal speech, confusion, dizziness, focal weakness, syncope Psychiatric: ABSENT: anxiety, depression, homidical ideation, suicidal ideation Endocrine: ABSENT: cold intolerance, heat intolerance, polydipsia, polyuria Hematologic/Lymphatic: ABSENT: easy bleeding, easy bruising Physical Exam Vital Signs: Temp Pulse Resp BP Pulse Ox 98.3 F 93 17 153/86 H 100 11/10/19 01:46 11/10/19 01:46 11/10/19 06:01 11/10/19 06:01 11/10/19 06:01 Intake & Output 11/09/19 11/10/19 11/11/19 06:59 06:59 06:59 Intake Total 50 Balance 50 Weight 45.359 kg General appearance: PRESENT: no acute distress, well-developed, well-nourished Head exam: PRESENT: atraumatic, normocephalic Eye exam: PRESENT: conjunctiva pink, EOMI, PERRLA. ABSENT: scleral icterus Ear exam: PRESENT: normal external ear exam Mouth exam: PRESENT: moist, tongue midline Neck exam: ABSENT: carotid bruit, JVD, lymphadenopathy, thyromegaly Respiratory exam: PRESENT: clear to auscultation claire. ABSENT: rales, rhonchi, wheezes Cardiovascular exam: PRESENT: RRR. ABSENT: diastolic murmur, rubs, systolic murmur Pulses: PRESENT: normal dorsalis pedis pul Vascular exam: PRESENT: normal capillary refill GI/Abdominal exam: PRESENT: normal bowel sounds, soft. ABSENT: distended, guarding, mass, organolmegaly, rebound, tenderness Rectal exam: PRESENT: deferred Extremities exam: PRESENT: full ROM. ABSENT: calf tenderness, clubbing, pedal edema Neurological exam: PRESENT: alert, awake, oriented to person, oriented to place, oriented to time, oriented to situation, CN II-XII grossly intact. ABSENT: motor sensory deficit Psychiatric exam: PRESENT: appropriate affect, normal mood. ABSENT: homicidal ideation, suicidal ideation Skin exam: PRESENT: dry, intact, warm. ABSENT: cyanosis, rash Results Laboratory Results: 11/10/19 02:48 11/10/19 02:48 11/10/19 11/10/19 11/10/19 02:48 02:48 02:48 WBC 9.3 RBC 3.48 L Hgb 10.5 L Hct 31.7 L MCV 91 MCH 30.0 MCHC 33.0 RDW 14.3 H Plt Count 393 Seg Neutrophils % 85.5 H Sodium 136.5 L Potassium 4.1 Chloride 109 H Carbon Dioxide 17 L Anion Gap 11 BUN 34 H Creatinine 1.59 H Est GFR ( Amer) 39 L Glucose 99 Lactic Acid 0.8 Calcium 9.6 Total Bilirubin 0.5 AST 25 Alkaline Phosphatase 127 H Total Protein 6.8 Albumin 3.8 Lipase 641.2 H Urine Color Urine Appearance Urine pH Ur Specific [place] Urine Protein Urine Glucose (UA) Urine Ketones Urine Blood Urine Nitrite Ur Leukocyte Esterase 11/10/19 05:11 WBC RBC Hgb Hct MCV MCH MCHC RDW Plt Count Seg Neutrophils % Sodium Potassium Chloride Carbon Dioxide Anion Gap BUN Creatinine Est GFR ( Amer) Glucose Lactic Acid Calcium Total Bilirubin AST Alkaline Phosphatase Total Protein Albumin Lipase Urine Color STRAW Urine Appearance CLEAR Urine pH 6.0 Ur Specific [place] 1.016 Urine Protein 100 H Urine Glucose (UA) NEGATIVE Urine Ketones NEGATIVE Urine Blood NEGATIVE Urine Nitrite NEGATIVE Ur Leukocyte Esterase NEGATIVE 11/10/19 02:48 Troponin I < 0.012 Impressions: Abdomen/Pelvis CT 11/10/19 02:11 IMPRESSION: Parenchymal lung change, similar to prior. Single dot of free intraperitoneal air, the source of which is not seen. Small amount of free intraperitoneal fluid. Pelvic fractures, as described. These are adverse change when compared to prior. Adjacent hematoma. Edema and thickening of the stomach Chest X-Ray 11/10/19 02:11 IMPRESSION: Progressive airspace disease right lung base. Small progressive right effusion. Status: Image reviewed by me Assessment & Plan - Diagnosis (1) Abdominal pain Qualifiers: Abdominal location: epigastric Qualified Code(s): R10.13 - Epigastric pain Is this a current diagnosis for this admission?: Yes Plan: Likely secondary to possible perforated ulcer, agree with current medical management, on physical exam she does have continued epigastric tenderness but she feels overall better than yesterday. (2) Perforated abdominal viscus Is this a current diagnosis for this admission?: Yes Plan: Probable perforated viscus, nonsurgical approach taken because of family/patient wishes as well as comorbidities. Today I went ahead and ordered IV antibiotics with Flagyl and ceftriaxone per surgical recommendations, ordered IV fluids and IV pain medication. (3) Malignant neoplasm of lung Qualifiers: Laterality: right Lung location: overlapping sites Qualified Code(s): C34.81 - Malignant neoplasm of overlapping sites of right bronchus and lung Is this a current diagnosis for this admission?: Yes Plan: Stage IV lung cancer, we will continue to hold oral medication, she is in a relative remission currently. (4) Anemia Qualifiers: Anemia type: other cause Other causes of anemia: chronic disease, neoplastic Qualified Code(s): D63.0 - Anemia in neoplastic disease Is this a current diagnosis for this admission?: Yes Plan: Hemoglobin in the 10 range, if hemoglobin gets under 8 would transfuse, iron levels were normal in the office so IV iron will not help. - Time Time Spent: Greater than 70 Minutes - Inpatient Certification Based on my medical assessment, after consideration of the patient's comorbidities, presenting symptoms, or acuity I expect that the services needed warrant INPATIENT care.: Yes I certify that my determination is in accordance with my understanding of Medicare's requirements for reasonable and necessary INPATIENT services [42 CFR 412.3e].: Yes Medical Necessity: Need For IV Fluids, Need for Pain Control, Need for IV Antibiotics, Need for Surgery, Risk of Complication if Not Cared For in Hospital
[2019-11-10] MEDS: DEXTROSE 5%-NORMAL SALINE 1,000 ML IV PRN ×2 (08:49→23:12)
[2019-11-10] MEDS: HEPARIN SOD (PORCINE) 5,000 UNIT/ML 1 ML VIAL SUBCUT SCH ×3 (08:51→21:06)
[2019-11-10 09:10] LABS: INTERNATIONAL RATION (INR) 1.03; PROTHROMBIN TIME 13.7 SEC (11.4-15.4)
[2019-11-10 09:37] LABS: FREE T4 (FREE THYROXINE) 1.56 ng/dL (0.78-2.19)
[2019-11-10 09:51] LABS: THYROID STIMULATING HORMONE 2.39 uIU/mL (0.47-4.68)
--- NOTE | 2019-11-10 10:13 | EKG REPORT ---
SEVERITY:- ABNORMAL ECG - SINUS RHYTHM VENTRICULAR PREMATURE COMPLEX PROBABLE LEFT ATRIAL ABNORMALITY PROBABLE ANTEROSEPTAL INFARCT, AGE INDETERM : Confirmed by: Giovanna Roach MD 10-Nov-2019 10:11:40
[2019-11-10 11:49] LABS: URINE AMPHETAMINES SCREEN NEGATIVE; URINE BARBITURATES SCREEN NEGATIVE; URINE BENZODIAZEPINES SCREEN NEGATIVE; URINE COCAINE SCREEN NEGATIVE; URINE MARIJUANA (THC) SCREEN NEGATIVE; URINE METHADONE SCREEN NEGATIVE; URINE PHENCYCLIDINE SCREEN NEGATIVE
[2019-11-10] MEDS: PANTOPRAZOLE SODIUM 40 MG VIAL IV SCH ×2 (13:33→21:06)
[2019-11-10] MEDS: METRONIDAZOLE RTU 500 MG/NS 100 ML IV SCH ×2 (13:34→21:07)
--- NOTE | 2019-11-10 18:26 | PDOC H&P ---
History of Present Illness Admission Date/PCP: 11/10/19 05:53 EDU BARAJAS MD History of Present Illness: KYE SANDRA is a 74 year old female,She came to the emergency room earlier this morning for evaluation of epigastric pain, it is of sudden onset. The CAT scan of the abdomen was obtained in the emergency room, it showed normal size liver the pancreas is unremarkable, spleen is unremarkable, a free intraperitoneal air was also found the source was not clear. She has a history of bleeding peptic ulcer disease, couple of months ago she was in the [facility], she is [place] the [facility], while she was in [facility] she had a GI bleed, she underwent upper endoscopy in the [facility], blood transfusion, I suspect that she may have suffered perforated duodenal ulcer or gastric ulcer, she also have a history of lung cancer no evidence of recurrence at this time. The CT scan also showed fracture of pelvic bones apparently this is somewhat chronic from prior imaging. She was seen by the surgeon and also by the treating oncologist, it was felt that she is not a candidate for surgical intervention at this time Past Medical History Cardiac Medical History: Reports: Hypertension Malignancy Medical History: Reports: Liver Cancer, Lung Cancer - Stage IV Musculoskeltal Medical History: Reports: Arthritis Hematology: Reports: Anemia Past Surgical History Past Surgical History: Reports: Other - Pleurx catheter placement and removal, rebiopsy with bronchoscopy Social History Smoking Status: Never Smoker Frequency of Alcohol Use: None Hx Recreational Drug Use: No Drugs: None Hx Prescription Drug Abuse: No - Advance Directive Resuscitation Status: Full Code Family History Family History: Reviewed & Not Pertinent Parental Family History Reviewed: Yes Children Family History Reviewed: Yes Sibling(s) Family History Reviewed.: Yes Medication/Allergy Home Medications: Amlodipine Besylate [Norvasc 10 mg Tablet] 10 mg PO DAILY 09/03/12 Metoprolol Succinate [Toprol Xl 25 mg Tab.sr] 1 tab PO DAILY 03/08/16 Folic Acid [Folvite 1 mg Tablet] 1 mg PO DAILY 09/30/19 Megestrol Acetate [Megace 20 mg Tablet] 40 mg PO BID 09/30/19 Osimertinib Mesylate [Tagrisso] 80 mg PO DAILY 09/30/19 Valsartan [Diovan 160 mg Tablet] 160 mg PO DAILY 09/30/19 Atorvastatin Calcium [Lipitor 40 mg Tablet] 40 mg PO QHS 11/10/19 Montelukast Sodium [Singulair 10 mg Tablet] 10 mg PO QHS 11/10/19 Oxycodone HCl [Oxy-Ir 5 mg Tablet] 5 mg PO Q6HP PRN 11/10/19 Pregabalin [Lyrica 75 mg Capsule] 75 mg PO Q12 11/10/19 Allergies/Adverse Reactions: No Known Allergies Allergy (Verified 03/07/16 19:51) Review of Systems Constitutional: ABSENT: chills, fever(s), headache(s), weight gain, weight loss Eyes: ABSENT: visual disturbances Ears: ABSENT: hearing changes Cardiovascular: ABSENT: chest pain, dyspnea on exertion, edema, orthropnea, palpitations Respiratory: ABSENT: cough, hemoptysis Gastrointestinal: PRESENT: abdominal pain Genitourinary: ABSENT: dysuria, hematuria Musculoskeletal: ABSENT: joint swelling Integumentary: ABSENT: rash, wounds Neurological: ABSENT: abnormal gait, abnormal speech, confusion, dizziness, focal weakness, syncope Psychiatric: ABSENT: anxiety, depression, homidical ideation, suicidal ideation Endocrine: ABSENT: cold intolerance, heat intolerance, menstrual abnormalities, polydipsia, polyuria Hematologic/Lymphatic: ABSENT: easy bleeding, easy bruising, lymphadenopathy Physical Exam Vital Signs: Temp Pulse Resp BP Pulse Ox 98.4 F 82 16 132/67 H 100 11/10/19 11:13 11/10/19 14:00 11/10/19 11:13 11/10/19 11:13 11/10/19 11:13 Intake & Output 11/09/19 11/10/19 11/11/19 06:59 06:59 06:59 Intake Total 150 Balance 150 Weight 45.359 kg 45.5 kg General appearance: PRESENT: no acute distress, thin Head exam: PRESENT: atraumatic, normocephalic Eye exam: PRESENT: PERRLA Ear exam: PRESENT: normal external ear exam Mouth exam: PRESENT: moist, tongue midline Neck exam: PRESENT: full ROM Respiratory exam: PRESENT: clear to auscultation claire Cardiovascular exam: PRESENT: RRR, +S1, +S2 Vascular exam: PRESENT: normal capillary refill GI/Abdominal exam: PRESENT: normal bowel sounds, soft Rectal exam: PRESENT: deferred Neurological exam: PRESENT: alert, CN II-XII grossly intact Psychiatric exam: PRESENT: appropriate affect, normal mood Skin exam: PRESENT: dry, intact, warm Results Laboratory Results: 11/10/19 02:48 11/10/19 02:48 11/10/19 11/10/19 11/10/19 02:48 02:48 02:48 WBC 9.3 RBC 3.48 L Hgb 10.5 L Hct 31.7 L MCV 91 MCH 30.0 MCHC 33.0 RDW 14.3 H Plt Count 393 Seg Neutrophils % 85.5 H Sodium 136.5 L Potassium 4.1 Chloride 109 H Carbon Dioxide 17 L Anion Gap 11 BUN 34 H Creatinine 1.59 H Est GFR ( Amer) 39 L Glucose 99 Lactic Acid 0.8 Calcium 9.6 Total Bilirubin 0.5 AST 25 Alkaline Phosphatase 127 H Ammonia Total Protein 6.8 Albumin 3.8 Amylase Lipase 641.2 H TSH Free T4 Urine Color Urine Appearance Urine pH Ur Specific [place] Urine Protein Urine Glucose (UA) Urine Ketones Urine Blood Urine Nitrite Ur Leukocyte Esterase 11/10/19 11/10/19 11/10/19 05:11 08:44 08:44 WBC RBC Hgb Hct MCV MCH MCHC RDW Plt Count Seg Neutrophils % Sodium Potassium Chloride Carbon Dioxide Anion Gap BUN Creatinine Est GFR ( Amer) Glucose Lactic Acid Calcium Total Bilirubin AST Alkaline Phosphatase Ammonia < 8.7 L Total Protein Albumin Amylase 224 H Lipase 508.3 H TSH Free T4 Urine Color STRAW Urine Appearance CLEAR Urine pH 6.0 Ur Specific [place] 1.016 Urine Protein 100 H Urine Glucose (UA) NEGATIVE Urine Ketones NEGATIVE Urine Blood NEGATIVE Urine Nitrite NEGATIVE Ur Leukocyte Esterase NEGATIVE 11/10/19 08:44 WBC RBC Hgb Hct MCV MCH MCHC RDW Plt Count Seg Neutrophils % Sodium Potassium Chloride Carbon Dioxide Anion Gap BUN Creatinine Est GFR ( Amer) Glucose Lactic Acid Calcium Total Bilirubin AST Alkaline Phosphatase Ammonia Total Protein Albumin Amylase Lipase TSH 2.39 Free T4 1.56 Urine Color Urine Appearance Urine pH Ur Specific [place] Urine Protein Urine Glucose (UA) Urine Ketones Urine Blood Urine Nitrite Ur Leukocyte Esterase 11/10/19 02:48 Troponin I < 0.012 Impressions: Abdomen/Pelvis CT 11/10/19 02:11 IMPRESSION: Parenchymal lung change, similar to prior. Single dot of free intraperitoneal air, the source of which is not seen. Small amount of free intraperitoneal fluid. Pelvic fractures, as described. These are adverse change when compared to prior. Adjacent hematoma. Edema and thickening of the stomach Chest X-Ray 11/10/19 02:11 IMPRESSION: Progressive airspace disease right lung base. Small progressive right effusion. Assessment & Plan - Diagnosis (1) Perforated abdominal viscus Is this a current diagnosis for this admission?: Yes Plan: , This is most likely from perforated duodenal ulcer, she recently had bleeding duodenal ulcer in May 2019 while she was in the [facility], she required blood transfusion and I believe she also underwent upper endoscopy, she will be empirically started on intravenous Protonix 40 Mg IV every 12, the surgeon stated that she is not a good candidate for surgery, antibiotic was also recommended by the surgeon this was prescribed by the oncologist Dr. Carney (2) Personal history of lung cancer Is this a current diagnosis for this admission?: Yes Plan: The most recent PET scan did not show any recurrent cancer, oncology already consulted (3) Fracture of pelvic bone without disruption of posterior arch of pelvic ring Is this a current diagnosis for this admission?: Yes - Time Time Spent: Greater than 70 Minutes Medications reviewed and adjusted accordingly: Yes Anticipated Discharge Disposition: Home, Self Care Anticipated Discharge Timeframe: within 72 hours
[2019-11-11] MEDS: HEPARIN SOD (PORCINE) 5,000 UNIT/ML 1 ML VIAL SUBCUT SCH ×3 (05:13→21:33)
[2019-11-11] MEDS: METRONIDAZOLE RTU 500 MG/NS 100 ML IV SCH ×3 (05:13→21:33)
[2019-11-11 06:37] LABS: ABSOLUTE EOSINOPHILS # (AUTO) 0.1 10^3/uL (0.0-0.6); ABSOLUTE MONOCYTES (AUTO) 0.6 10^3/uL (0.1-1.4); ABSOLUTE NEUT (AUTO) 8.6 10^3/uL (1.7-8.2); BASOPHILS % (AUTO) 0.4 % (0-2); EOSINOPHILS % (AUTO) 1.3 % (0-6); HEMATOCRIT 28.5 % (36.0-47.0); HEMOGLOBIN 9.5 g/dL (12.0-15.5); LYMPHOCYTES % (AUTO) 9.7 % (13-45); MEAN CORPUSCULAR HEMOGLOBIN 30.1 pg (27.0-33.4); MEAN CORPUSCULAR HGB CONC 33.2 g/dL (32.0-36.0); MEAN CORPUSCULAR VOLUME 91 fl (80-97); PLATELET COUNT 312 10^3/uL (150-450); RED BLOOD COUNT 3.14 10^6/uL (3.72-5.28); RED CELL DISTRIBUTION WIDTH 14.1 % (11.5-14.0); SEGMENTED NEUTROPHILS % (AUTO) 82.6 % (42-78); TOTAL CELLS COUNTED % (AUTO) 100 %; WHITE BLOOD COUNT 10.5 10^3/uL (4.0-10.5)
[2019-11-11 06:57] LABS: ALBUMIN 3.3 g/dL (3.5-5.0); ALKALINE PHOSPHATASE 110 U/L (38-126); ANION GAP 11 (5-19); ASPARTATE AMINO TRANSFERASE 19 U/L (14-36); BILIRUBIN,DIRECT 0.5 mg/dL (0.0-0.4); BILIRUBIN,TOTAL 0.6 mg/dL (0.2-1.3); BLOOD UREA NITROGEN 23 mg/dL (7-20); CARBON DIOXIDE 19 mmol/L (22-30); CHLORIDE 114 mmol/L (98-107); GLUCOSE 102 mg/dL (75-110); POTASSIUM 3.6 mmol/L (3.6-5.0); TOTAL PROTEIN 6.3 g/dL (6.3-8.2)
--- NOTE | 2019-11-11 08:12 | PDOC PROGRESS REPORT ---
Subjective Progress Note for:: 11/11/19 Subjective:: Patient doing much better this morning, on physical exam today had a deep palpation of epigastric area and no pain. Discussed her case with general surgery today, who will be seeing her today. They recommended continued n.p.o. for another 72 hours. On Thursday, they recommend doing a Gastrografin type swallow with x-ray to make sure the leak has sealed itself. And advancing diet thereafter. They will put recommendations to this effect today. Reason For Visit: PERFORATED VISCUS ? ETIOLOGY, FRACTURE PELVIC BONE Physical Exam Vital Signs: Temp Pulse Resp BP Pulse Ox 98.4 F 96 16 145/75 H 99 11/11/19 03:41 11/11/19 03:41 11/11/19 03:41 11/11/19 03:41 11/11/19 03:41 Intake & Output 11/10/19 11/11/19 11/12/19 06:59 06:59 06:59 Intake Total 1250 Balance 1250 Weight 45.359 kg 45.4 kg General appearance: PRESENT: no acute distress, well-developed, well-nourished Head exam: PRESENT: atraumatic, normocephalic Eye exam: PRESENT: conjunctiva pink, EOMI, PERRLA. ABSENT: scleral icterus Ear exam: PRESENT: normal external ear exam Mouth exam: PRESENT: moist, tongue midline Neck exam: ABSENT: carotid bruit, JVD, lymphadenopathy, thyromegaly Respiratory exam: PRESENT: clear to auscultation claire. ABSENT: rales, rhonchi, wheezes Cardiovascular exam: PRESENT: RRR. ABSENT: diastolic murmur, rubs, systolic murmur Pulses: PRESENT: normal dorsalis pedis pul Vascular exam: PRESENT: normal capillary refill GI/Abdominal exam: PRESENT: normal bowel sounds, soft. ABSENT: distended, guarding, mass, organolmegaly, rebound, tenderness Rectal exam: PRESENT: deferred Extremities exam: PRESENT: full ROM. ABSENT: calf tenderness, clubbing, pedal edema Neurological exam: PRESENT: alert, awake, oriented to person, oriented to place, oriented to time, oriented to situation, CN II-XII grossly intact. ABSENT: motor sensory deficit Psychiatric exam: PRESENT: appropriate affect, normal mood. ABSENT: homicidal ideation, suicidal ideation Skin exam: PRESENT: dry, intact, warm. ABSENT: cyanosis, rash Results Laboratory Results: 11/11/19 06:23 11/11/19 06:23 11/10/19 11/10/19 11/10/19 08:44 08:44 08:44 WBC RBC Hgb Hct MCV MCH MCHC RDW Plt Count Seg Neutrophils % Sodium Potassium Chloride Carbon Dioxide Anion Gap BUN Creatinine Est GFR ( Amer) Glucose Calcium Total Bilirubin AST Alkaline Phosphatase Ammonia < 8.7 L Total Protein Albumin Amylase 224 H Lipase 508.3 H TSH 2.39 Free T4 1.56 11/11/19 11/11/19 06:23 06:23 WBC 10.5 RBC 3.14 L Hgb 9.5 L Hct 28.5 L MCV 91 MCH 30.1 MCHC 33.2 RDW 14.1 H Plt Count 312 Seg Neutrophils % 82.6 H Sodium 143.9 Potassium 3.6 Chloride 114 H Carbon Dioxide 19 L Anion Gap 11 BUN 23 H Creatinine 1.36 H Est GFR ( Amer) 46 L Glucose 102 Calcium 9.0 Total Bilirubin 0.6 AST 19 Alkaline Phosphatase 110 Ammonia Total Protein 6.3 Albumin 3.3 L Amylase Lipase TSH Free T4 11/10/19 02:48 Troponin I < 0.012 Impressions: Abdomen/Pelvis CT 11/10/19 02:11 IMPRESSION: Parenchymal lung change, similar to prior. Single dot of free intraperitoneal air, the source of which is not seen. Small amount of free intraperitoneal fluid. Pelvic fractures, as described. These are adverse change when compared to prior. Adjacent hematoma. Edema and thickening of the stomach Chest X-Ray 11/10/19 02:11 IMPRESSION: Progressive airspace disease right lung base. Small progressive right effusion. Assessment & Plan - Diagnosis (1) Abdominal pain Qualifiers: Abdominal location: epigastric Qualified Code(s): R10.13 - Epigastric pain Is this a current diagnosis for this admission?: Yes Plan: Greatly improved, not really requiring much pain medication. (2) Perforated abdominal viscus Is this a current diagnosis for this admission?: Yes Plan: Continue n.p.o., changing IV fluids from D5/normal saline to D5/half-normal sali ne to ensure that we have isotonic as opposed to hypotonic solution. (3) Malignant neoplasm of lung Qualifiers: Laterality: right Lung location: overlapping sites Qualified Code(s): C34.81 - Malignant neoplasm of overlapping sites of right bronchus and lung Is this a current diagnosis for this admission?: Yes Plan: Holding all therapy for now, complete response thus far (4) Anemia Qualifiers: Anemia type: other cause Other causes of anemia: chronic disease, neoplastic Qualified Code(s): D63.0 - Anemia in neoplastic disease Is this a current diagnosis for this admission?: Yes Plan: Hemoglobin stable transfuse if it gets under 8. Outpatient we were giving her Procrit. - Time Time Spent with patient: 15-24 minutes - Inpatient Certification Based on my medical assessment, after consideration of the patient's comorb idities, presenting symptoms, or acuity I expect that the services needed warrant INPATIENT care.: Yes I certify that my determination is in accordance with my understanding of Medicare's requirements for reasonable and necessary INPATIENT services [42 CFR 412.3e].: Yes Medical Necessity: Need For IV Fluids, Need for IV Antibiotics, Risk of Complication if Not Cared For in Hospital
--- NOTE | 2019-11-11 09:42 | PDOC PROGRESS REPORT ---
Subjective Progress Note for:: 11/11/19 Subjective:: Patient comfortable without complaints Reason For Visit: PERFORATED VISCUS ? ETIOLOGY, FRACTURE PELVIC BONE Physical Exam Vital Signs: Temp Pulse Resp BP Pulse Ox 98.1 F 92 16 140/68 H 100 11/11/19 07:53 11/11/19 07:53 11/11/19 07:53 11/11/19 07:53 11/11/19 07:53 Intake & Output 11/10/19 11/11/19 11/12/19 06:59 06:59 06:59 Intake Total 1250 Balance 1250 Weight 45.359 kg 45.4 kg General appearance: PRESENT: no acute distress Respiratory exam: PRESENT: clear to auscultation claire Cardiovascular exam: PRESENT: RRR GI/Abdominal exam: PRESENT: normal bowel sounds, soft, other - No peritoneal signs Results Laboratory Results: 11/11/19 06:23 11/11/19 06:23 11/10/19 11/11/19 11/11/19 08:44 06:23 06:23 WBC 10.5 RBC 3.14 L Hgb 9.5 L Hct 28.5 L MCV 91 MCH 30.1 MCHC 33.2 RDW 14.1 H Plt Count 312 Seg Neutrophils % 82.6 H Sodium 143.9 Potassium 3.6 Chloride 114 H Carbon Dioxide 19 L Anion Gap 11 BUN 23 H Creatinine 1.36 H Est GFR ( Amer) 46 L Glucose 102 Calcium 9.0 Total Bilirubin 0.6 AST 19 Alkaline Phosphatase 110 Total Protein 6.3 Albumin 3.3 L TSH 2.39 Free T4 1.56 11/10/19 06:29 Blood Blood Culture (PCR) - Final Staphylococcus Species 11/10/19 02:48 Troponin I < 0.012 Impressions: Abdomen/Pelvis CT 11/10/19 02:11 IMPRESSION: Parenchymal lung change, similar to prior. Single dot of free intraperitoneal air, the source of which is not seen. Small amount of free intraperitoneal fluid. Pelvic fractures, as described. These are adverse change when compared to prior. Adjacent hematoma. Edema and thickening of the stomach Chest X-Ray 11/10/19 02:11 IMPRESSION: Progressive airspace disease right lung base. Small progressive right effusion. Assessment & Plan - Time Anticipated Discharge Disposition: Home, Self Care Anticipated Discharge Timeframe: when)Is accompanied Linocaprikatherin is also been easily with patient stable as per the medical service - Plan Summary Plan Summary: Assessment: General surgery service reconsulted as the patient is clinically improving Currently, the patient is n.p.o. without gastrointestinal symptoms Physical exam shows a benign abdomen Blood work within normal limits Plan: Continue n.p.o. for the next 3 days Plan upper GI with Gastrografin on November 13, If no leak, the patient's diet can be advanced to clears and then advance as tolerated
[2019-11-11] MEDS: PANTOPRAZOLE SODIUM 40 MG VIAL IV SCH ×2 (10:08→21:33)
[2019-11-11] MEDS: CEFTRIAXONE 1 GM/D5W RTU 1 GM/50 ML RTUPB IV SCH (10:08)
--- NOTE | 2019-11-11 11:23 | Operative Report ---
Operative Report DATE OF SURGERY: 11/11/19 PREOPERATIVE DIAGNOSIS: Penetrating trauma right foot; gas gangrene right foot; status post debridement right foot POSTOPERATIVE DIAGNOSIS: Same as above OPERATION: Full-thickness debridement sharp of skin and underlying fascia and muscle; placement wound VAC SURGEON: ROLDAN REESE ANESTHESIA: LMAC TISSUE REMOVED OR ALTERED: Skin of foot dorsal aspect regular with underlying fascia and muscle COMPLICATIONS: None ESTIMATED BLOOD LOSS: Less than 10 mL INTRAOPERATIVE FINDINGS: Skin flaps were devitalized approximately half to 1 inch circumferentially; underneath fasciocutaneous tissue was necrotic, fourth and fifth lumbrical food muscles ischemia, viable third lumbrical foot muscle PROCEDURE: The procedure was done in the operating room, the patient was placed in supine position, IV sedation by LMAC provided by the financial services specialist, the right foot and leg were prepped draped in usual fashion. The [place] drain placed yesterday were removed. On initial inspection, the dorsal aspect of foot appear covered by necrotic subcutaneous fascia as well as the fourth and fifth lumbrical muscles appear to be dusky. Half an inch inch to 1 inch of the skin edges of the circular shaped surgical wound created during the previous surgery was dusky. This skin was sharply excised until good bleeding tissue was obtained. Further inspection of the wound revealed necrosis of the underlying fascia which was sharply debrided throughout the entire surgical field which now measures approximately 12 x 10 cm, located on the dorsal lateral aspect of the foot, overlying the third through fifth metatarsal bones. After this debridement, the underlying lumbrical muscles were inspected: the fourth and fifth lumbrical muscles were dusky; these was debrided and specimens were sent to pathology test muscle viability. Examination of the third lumbrical muscle revealed a pink muscle belly and a sample was sent to pathology as well. This was found to be viable. Local bleeders were cauterized, jet lavage with 3 L normal saline of the surgical field was performed. After this, a marie wound VAC sponge was cut to size, placed in the surgical field and followed by a large Tegaderm was placed on top of it to create a seal. The Tegaderm on top of the sponge was open and the vacuum cup was placed on top of the Tegaderm and connected to the wound VAC machine. Good vacuum seal was obtained with use 125 mmHg negative pressure. The wound VAC tubing was secured to the skin with an Shree bandage. The patient tolerated the procedure well, transferred to the stretcher, and then to the recovery room in satisfactory conditions.
--- NOTE | 2019-11-11 20:58 | PDOC PROGRESS REPORT ---
Subjective Progress Note for:: 11/11/19 Subjective:: Patient seen by the bedside, She remains n.p.o., she was evaluated by the surgeon, the plan is for the patient to have Gastrografin study of the GI tract on Thursday, she presented with perforated viscus most likely perforated small bowel from duodenal ulcer, she is not a candidate for exploratory laparotomy, she is severely undernourished/malnourished, BMI of 17, she probably would not do well perioperatively, conservative approach is pursued at the moment, patient on IV fluid to prevent dehydration Reason For Visit: PERFORATED VISCUS ? ETIOLOGY, FRACTURE PELVIC BONE Physical Exam Vital Signs: Temp Pulse Resp BP Pulse Ox 98.5 F 97 16 147/75 H 97 11/11/19 16:38 11/11/19 16:38 11/11/19 16:38 11/11/19 16:38 11/11/19 16:38 Intake & Output 11/10/19 11/11/19 11/12/19 06:59 06:59 06:59 Intake Total 1250 Balance 1250 Weight 45.359 kg 45.4 kg General appearance: PRESENT: no acute distress Eye exam: PRESENT: PERRLA Respiratory exam: PRESENT: clear to auscultation claire Cardiovascular exam: PRESENT: +S1, +S2 GI/Abdominal exam: PRESENT: soft Neurological exam: PRESENT: alert, CN II-XII grossly intact Results Laboratory Results: 11/11/19 06:23 11/11/19 06:23 11/11/19 11/11/19 06:23 06:23 WBC 10.5 RBC 3.14 L Hgb 9.5 L Hct 28.5 L MCV 91 MCH 30.1 MCHC 33.2 RDW 14.1 H Plt Count 312 Seg Neutrophils % 82.6 H Sodium 143.9 Potassium 3.6 Chloride 114 H Carbon Dioxide 19 L Anion Gap 11 BUN 23 H Creatinine 1.36 H Est GFR ( Amer) 46 L Glucose 102 Calcium 9.0 Total Bilirubin 0.6 AST 19 Alkaline Phosphatase 110 Total Protein 6.3 Albumin 3.3 L 11/10/19 05:11 Clean Catch Midstream Urine Culture - Final Mixed Urogenital Alisson 11/10/19 06:29 Blood Blood Culture (PCR) - Final Staphylococcus Species 11/10/19 02:48 Troponin I < 0.012 Impressions: Abdomen/Pelvis CT 11/10/19 02:11 IMPRESSION: Parenchymal lung change, similar to prior. Single dot of free intraperitoneal air, the source of which is not seen. Small amount of free intraperitoneal fluid. Pelvic fractures, as described. These are adverse change when compared to prior. Adjacent hematoma. Edema and thickening of the stomach Chest X-Ray 11/10/19 02:11 IMPRESSION: Progressive airspace disease right lung base. Small progressive right effusion. Assessment & Plan - Diagnosis (1) Perforated abdominal viscus Is this a current diagnosis for this admission?: Yes Plan: Continue conservative approach, n.p.o., fluid therapy (2) Personal history of lung cancer Is this a current diagnosis for this admission?: Yes (3) Fracture of pelvic bone without disruption of posterior arch of pelvic ring Is this a current diagnosis for this admission?: Yes - Time Time Spent with patient: 25-34 minutes Level of Care: IMCU Medications reviewed and adjusted accordingly: Yes Anticipated discharge: Home Anticipated DC Timeframe: within 72 hours
[2019-11-12] MEDS: DEXTROSE 5%-1/2 NORMAL SALINE 1,000 ML IV PRN ×2 (05:09→17:21)
[2019-11-12] MEDS: METRONIDAZOLE RTU 500 MG/NS 100 ML IV SCH ×3 (06:09→22:14)
[2019-11-12] MEDS: HEPARIN SOD (PORCINE) 5,000 UNIT/ML 1 ML VIAL SUBCUT SCH ×3 (06:09→22:14)
[2019-11-12 06:36] LABS: ABSOLUTE BASOPHILS # (AUTO) 0.1 10^3/uL (0.0-0.2); ABSOLUTE EOSINOPHILS # (AUTO) 0.1 10^3/uL (0.0-0.6); ABSOLUTE LYMPHOCYTES (AUTO) 0.6 10^3/uL (0.5-4.7); ABSOLUTE MONOCYTES (AUTO) 0.4 10^3/uL (0.1-1.4); ABSOLUTE NEUT (AUTO) 7.7 10^3/uL (1.7-8.2); BASOPHILS % (AUTO) 0.6 % (0-2); EOSINOPHILS % (AUTO) 1.2 % (0-6); HEMATOCRIT 29.2 % (36.0-47.0); LYMPHOCYTES % (AUTO) 6.5 % (13-45); MEAN CORPUSCULAR HEMOGLOBIN 30.8 pg (27.0-33.4); MEAN CORPUSCULAR HGB CONC 34.4 g/dL (32.0-36.0); MEAN CORPUSCULAR VOLUME 90 fl (80-97); MONOCYTES % (AUTO) 4.1 % (3-13); PLATELET COUNT 330 10^3/uL (150-450); RED BLOOD COUNT 3.26 10^6/uL (3.72-5.28); RED CELL DISTRIBUTION WIDTH 14.5 % (11.5-14.0); SEGMENTED NEUTROPHILS % (AUTO) 87.6 % (42-78); TOTAL CELLS COUNTED % (AUTO) 100 %; WHITE BLOOD COUNT 8.8 10^3/uL (4.0-10.5)
--- NOTE | 2019-11-12 10:00 | PDOC PROGRESS REPORT ---
Subjective Progress Note for:: 11/12/19 Reason For Visit: PERFORATED VISCUS ? ETIOLOGY, FRACTURE PELVIC BONE Patient states she feels a little better. She remains n.p.o. on IV fluids. Physical Exam Vital Signs: Temp Pulse Resp BP Pulse Ox 98.5 F 92 20 154/72 H 100 11/12/19 07:57 11/12/19 07:57 11/12/19 07:57 11/12/19 07:57 11/12/19 07:57 Intake & Output 11/11/19 11/12/19 11/13/19 06:59 06:59 06:59 Intake Total 1250 Balance 1250 Weight 45.4 kg 43.9 kg General appearance: PRESENT: no acute distress GI/Abdominal exam: PRESENT: other - Abdomen soft, not distended, completely benign no peritoneal signs no rigidity. Results Laboratory Results: 11/12/19 05:52 11/11/19 06:23 11/12/19 05:52 WBC 8.8 RBC 3.26 L Hgb 10.0 L Hct 29.2 L MCV 90 MCH 30.8 MCHC 34.4 RDW 14.5 H Plt Count 330 Seg Neutrophils % 87.6 H 11/10/19 06:29 Blood Blood Culture (PCR) - Final Staphylococcus Species 11/10/19 05:11 Clean Catch Midstream Urine Culture - Final Mixed Urogenital Alisson 11/10/19 02:48 Troponin I < 0.012 Impressions: Abdomen/Pelvis CT 11/10/19 02:11 IMPRESSION: Parenchymal lung change, similar to prior. Single dot of free intraperitoneal air, the source of which is not seen. Small amount of free intraperitoneal fluid. Pelvic fractures, as described. These are adverse change when compared to prior. Adjacent hematoma. Edema and thickening of the stomach Chest X-Ray 11/10/19 02:11 IMPRESSION: Progressive airspace disease right lung base. Small progressive right effusion. Assessment & Plan - Diagnosis (1) Perforated abdominal viscus Is this a current diagnosis for this admission?: Yes Plan: Impression: Hospital day 3 for contained perforated peptic ulcer, no evidence of sepsis peritonitis; successful outcome of localized perforation through nonoperative management. Plan: 1. Keep n.p.o., IV fluids, intravenous antibiotics 2. Will obtain upper GI contrast study in 48 hours; if negative, will start clear liquids. 3. Surgery will continue to follow with you. - Time Time Spent: 30 to 50 Minutes Smoking Cessation Education: 3 to 10 minutes Anticipated Discharge Disposition: Shelter Facility Anticipated Discharge Timeframe: within 48 hours
[2019-11-12] MEDS: PANTOPRAZOLE SODIUM 40 MG VIAL IV SCH ×2 (10:40→22:14)
[2019-11-12] MEDS: CEFTRIAXONE 1 GM/D5W RTU 1 GM/50 ML RTUPB IV SCH (10:41)
--- NOTE | 2019-11-12 11:15 | PDOC PROGRESS REPORT ---
Subjective Progress Note for:: 11/12/19 Subjective:: Continues to improve every day, no further abdominal pain. Understands that she will not be eating for the next 48 hours until Gastrografin study on Thursday morning. Reason For Visit: PERFORATED VISCUS ? ETIOLOGY, FRACTURE PELVIC BONE Physical Exam Vital Signs: Temp Pulse Resp BP Pulse Ox 98.5 F 92 20 154/72 H 100 11/12/19 07:57 11/12/19 07:57 11/12/19 07:57 11/12/19 07:57 11/12/19 07:57 Intake & Output 11/11/19 11/12/19 11/13/19 06:59 06:59 06:59 Intake Total 1250 50 Balance 1250 50 Weight 45.4 kg 43.9 kg General appearance: PRESENT: no acute distress, well-developed, well-nourished Head exam: PRESENT: atraumatic, normocephalic Eye exam: PRESENT: conjunctiva pink, EOMI, PERRLA. ABSENT: scleral icterus Ear exam: PRESENT: normal external ear exam Mouth exam: PRESENT: moist, tongue midline Neck exam: ABSENT: carotid bruit, JVD, lymphadenopathy, thyromegaly Respiratory exam: PRESENT: clear to auscultation claire. ABSENT: rales, rhonchi, wheezes Cardiovascular exam: PRESENT: RRR. ABSENT: diastolic murmur, rubs, systolic murmur Pulses: PRESENT: normal dorsalis pedis pul Vascular exam: PRESENT: normal capillary refill GI/Abdominal exam: PRESENT: normal bowel sounds, soft. ABSENT: distended, guarding, mass, organolmegaly, rebound, tenderness Rectal exam: PRESENT: deferred Extremities exam: PRESENT: full ROM. ABSENT: calf tenderness, clubbing, pedal edema Neurological exam: PRESENT: alert, awake, oriented to person, oriented to place, oriented to time, oriented to situation, CN II-XII grossly intact. ABSENT: motor sensory deficit Psychiatric exam: PRESENT: appropriate affect, normal mood. ABSENT: homicidal ideation, suicidal ideation Skin exam: PRESENT: dry, intact, warm. ABSENT: cyanosis, rash Results Laboratory Results: 11/12/19 05:52 11/11/19 06:23 11/12/19 05:52 WBC 8.8 RBC 3.26 L Hgb 10.0 L Hct 29.2 L MCV 90 MCH 30.8 MCHC 34.4 RDW 14.5 H Plt Count 330 Seg Neutrophils % 87.6 H 11/10/19 06:29 Blood Blood Culture (PCR) - Final Staphylococcus Species 11/10/19 05:11 Clean Catch Midstream Urine Culture - Final Mixed Urogenital Alisson 11/10/19 02:48 Troponin I < 0.012 Impressions: Abdomen/Pelvis CT 11/10/19 02:11 IMPRESSION: Parenchymal lung change, similar to prior. Single dot of free intraperitoneal air, the source of which is not seen. Small amount of free intraperitoneal fluid. Pelvic fractures, as described. These are adverse change when compared to prior. Adjacent hematoma. Edema and thickening of the stomach Chest X-Ray 11/10/19 02:11 IMPRESSION: Progressive airspace disease right lung base. Small progressive right effusion. Assessment & Plan - Diagnosis (1) Abdominal pain Qualifiers: Abdominal location: epigastric Qualified Code(s): R10.13 - Epigastric pain Is this a current diagnosis for this admission?: Yes Plan: Improving (2) Perforated abdominal viscus Is this a current diagnosis for this admission?: Yes Plan: Plan as noted previously, continue medical management (3) Malignant neoplasm of lung Qualifiers: Laterality: right Lung location: overlapping sites Qualified Code(s): C3 4.81 - Malignant neoplasm of overlapping sites of right bronchus and lung Is this a current diagnosis for this admission?: Yes Plan: Holding all therapy for now, upon discharge patient will hold oral chemotherapeutic for another 1 to 2 weeks for full gut recovery (4) Anemia Qualifiers: Anemia type: other cause Other causes of anemia: chronic disease, neoplastic Qualified Code(s): D63.0 - Anemia in neoplastic disease Is this a current diagnosis for this admission?: Yes Plan: Hemoglobin stable if it drifts below 8 we should consider transfusion. - Time Time Spent with patient: 15-24 minutes
--- NOTE | 2019-11-12 12:48 | PDOC PROGRESS REPORT ---
Subjective Progress Note for:: 11/12/19 Subjective:: Patient seen by the bedside, She remains n.p.o., she was evaluated by the surgeon, the plan is for the patient to have Gastrografin study of the GI tract on Thursday, she presented with perforated viscus most likely perforated small bowel from duodenal ulcer, she is not a candidate for exploratory laparotomy, she is severely undernourished/malnourished, BMI of 17, she probably would not do well perioperatively, conservative approach is pursued at the moment, patient on IV fluid to prevent dehydration Reason For Visit: PERFORATED VISCUS ? ETIOLOGY, FRACTURE PELVIC BONE Physical Exam Vital Signs: Temp Pulse Resp BP Pulse Ox 98.5 F 92 20 154/72 H 100 11/12/19 10:00 11/12/19 07:57 11/12/19 07:57 11/12/19 07:57 11/12/19 07:57 Intake & Output 11/11/19 11/12/19 11/13/19 06:59 06:59 06:59 Intake Total 1250 50 Balance 1250 50 Weight 45.4 kg 43.9 kg General appearance: PRESENT: no acute distress Eye exam: PRESENT: PERRLA Respiratory exam: PRESENT: clear to auscultation claire Cardiovascular exam: PRESENT: +S1, +S2 GI/Abdominal exam: PRESENT: soft Neurological exam: PRESENT: alert, CN II-XII grossly intact Results Laboratory Results: 11/12/19 05:52 11/11/19 06:23 11/12/19 05:52 WBC 8.8 RBC 3.26 L Hgb 10.0 L Hct 29.2 L MCV 90 MCH 30.8 MCHC 34.4 RDW 14.5 H Plt Count 330 Seg Neutrophils % 87.6 H 11/10/19 06:29 Blood Blood Culture (PCR) - Final Staphylococcus Species 11/10/19 05:11 Clean Catch Midstream Urine Culture - Final Mixed Urogenital Alisson 11/10/19 02:48 Troponin I < 0.012 Impressions: Abdomen/Pelvis CT 11/10/19 02:11 IMPRESSION: Parenchymal lung change, similar to prior. Single dot of free intraperitoneal air, the source of which is not seen. Small amount of free intraperitoneal fluid. Pelvic fractures, as described. These are adverse change when compared to prior. Adjacent hematoma. Edema and thickening of the stomach Chest X-Ray 11/10/19 02:11 IMPRESSION: Progressive airspace disease right lung base. Small progressive right effusion. Assessment & Plan - Diagnosis (1) Perforated abdominal viscus Is this a current diagnosis for this admission?: Yes Plan: Continue conservative approach, n.p.o., fluid therapy (2) Personal history of lung cancer Is this a current diagnosis for this admission?: Yes (3) Fracture of pelvic bone without disruption of posterior arch of pelvic ring Is this a current diagnosis for this admission?: Yes - Time Time Spent with patient: 15-24 minutes Level of Care: IMCU Medications reviewed and adjusted accordingly: Yes Anticipated discharge: Home Anticipated DC Timeframe: within 72 hours
[2019-11-13] MEDS: METRONIDAZOLE RTU 500 MG/NS 100 ML IV SCH ×3 (05:10→21:26)
[2019-11-13] MEDS: HEPARIN SOD (PORCINE) 5,000 UNIT/ML 1 ML VIAL SUBCUT SCH ×3 (05:11→21:27)
[2019-11-13] MEDS: DEXTROSE 5%-1/2 NORMAL SALINE 1,000 ML IV PRN ×2 (05:15→13:37)
[2019-11-13 05:41] LABS: ABSOLUTE EOSINOPHILS # (AUTO) 0.1 10^3/uL (0.0-0.6); ABSOLUTE LYMPHOCYTES (AUTO) 0.7 10^3/uL (0.5-4.7); ABSOLUTE MONOCYTES (AUTO) 0.4 10^3/uL (0.1-1.4); ABSOLUTE NEUT (AUTO) 5.5 10^3/uL (1.7-8.2); BASOPHILS % (AUTO) 0.5 % (0-2); EOSINOPHILS % (AUTO) 1.9 % (0-6); HEMATOCRIT 28.2 % (36.0-47.0); HEMOGLOBIN 9.6 g/dL (12.0-15.5); LYMPHOCYTES % (AUTO) 10.2 % (13-45); MEAN CORPUSCULAR HEMOGLOBIN 30.4 pg (27.0-33.4); MEAN CORPUSCULAR HGB CONC 34.1 g/dL (32.0-36.0); MEAN CORPUSCULAR VOLUME 89 fl (80-97); MONOCYTES % (AUTO) 5.7 % (3-13); PLATELET COUNT 306 10^3/uL (150-450); RED BLOOD COUNT 3.15 10^6/uL (3.72-5.28); RED CELL DISTRIBUTION WIDTH 14.4 % (11.5-14.0); SEGMENTED NEUTROPHILS % (AUTO) 81.7 % (42-78); TOTAL CELLS COUNTED % (AUTO) 100 %; WHITE BLOOD COUNT 6.8 10^3/uL (4.0-10.5)
[2019-11-13] MEDS: CEFTRIAXONE 1 GM/D5W RTU 1 GM/50 ML RTUPB IV SCH (11:09)
[2019-11-13] MEDS: PANTOPRAZOLE SODIUM 40 MG VIAL IV SCH (11:09)
--- NOTE | 2019-11-13 11:30 | PDOC PROGRESS REPORT ---
Subjective Progress Note for:: 11/13/19 Reason For Visit: PERFORATED VISCUS ? ETIOLOGY, FRACTURE PELVIC BONE Patient is no complaints; remains n.p.o., IV fluids, intravenous antibiotics. Physical Exam Vital Signs: Temp Pulse Resp BP Pulse Ox 97.9 F 103 H 18 157/78 H 100 11/13/19 07:46 11/13/19 07:46 11/13/19 07:46 11/13/19 07:46 11/13/19 07:46 Intake & Output 11/12/19 11/13/19 11/14/19 06:59 06:59 06:59 Intake Total 50 2049 Balance 50 2049 Weight 43.9 kg 43.7 kg General appearance: PRESENT: no acute distress GI/Abdominal exam: PRESENT: other - Abdomen completely benign, no peritoneal signs no rigidity Results Laboratory Results: 11/13/19 05:15 11/11/19 06:23 11/13/19 05:15 WBC 6.8 RBC 3.15 L Hgb 9.6 L Hct 28.2 L MCV 89 MCH 30.4 MCHC 34.1 RDW 14.4 H Plt Count 306 Seg Neutrophils % 81.7 H 11/10/19 06:29 Blood Blood Culture (PCR) - Final Staphylococcus Species 11/10/19 02:48 Troponin I < 0.012 Impressions: Abdomen/Pelvis CT 11/10/19 02:11 IMPRESSION: Parenchymal lung change, similar to prior. Single dot of free intraperitoneal air, the source of which is not seen. Small amount of free intraperitoneal fluid. Pelvic fractures, as described. These are adverse change when compared to prior. Adjacent hematoma. Edema and thickening of the stomach Chest X-Ray 11/10/19 02:11 IMPRESSION: Progressive airspace disease right lung base. Small progressive right effusion. Assessment & Plan - Diagnosis (1) Perforated abdominal viscus Is this a current diagnosis for this admission?: Yes Plan: Impression: Successful nonoperative management of microperforation presumed peptic ulcer in 74-year-old woman with advanced left lung cancer Plan: 1. Continue nonoperative management as the patient has no evidence of sepsis 2. Await upper GI study tomorrow; if no leak, can start p.o. intake. 3. Further evaluation of the GI tract with endoscopy may be considered depending upon overall level of aggressiveness of care, and interest in pursuing underlying etiology of recent perforation - Time Time Spent: 30 to 50 Minutes Smoking Cessation Education: 3 to 10 minutes Anticipated Discharge Disposition: Home, Self Care Anticipated Discharge Timeframe: To be determined
--- NOTE | 2019-11-13 15:27 | PDOC PROGRESS REPORT ---
Subjective Progress Note for:: 11/13/19 Subjective:: Patient seen by the bedside, She remains n.p.o., she was evaluated by the surgeon, the plan is for the patient to have Gastrografin study of the GI tract on Thursday, she presented with perforated viscus most likely perforated small bowel from duodenal ulcer, she is not a candidate for exploratory laparotomy, she is severely undernourished/malnourished, BMI of 17, she probably would not do well perioperatively, conservative approach is pursued at the moment, patient on IV fluid to prevent dehydration Reason For Visit: PERFORATED VISCUS ? ETIOLOGY, FRACTURE PELVIC BONE Physical Exam Vital Signs: Temp Pulse Resp BP Pulse Ox 98.5 F 83 19 153/78 H 100 11/13/19 11:58 11/13/19 11:58 11/13/19 11:58 11/13/19 11:58 11/13/19 11:58 Intake & Output 11/12/19 11/13/19 11/14/19 06:59 06:59 06:59 Intake Total 50 2050 1000 Balance 50 2050 1000 Weight 43.9 kg 43.7 kg General appearance: PRESENT: no acute distress Eye exam: PRESENT: PERRLA Respiratory exam: PRESENT: clear to auscultation claire Cardiovascular exam: PRESENT: +S1, +S2 GI/Abdominal exam: PRESENT: soft Neurological exam: PRESENT: alert Results Laboratory Results: 11/13/19 05:15 11/11/19 06:23 11/13/19 05:15 WBC 6.8 RBC 3.15 L Hgb 9.6 L Hct 28.2 L MCV 89 MCH 30.4 MCHC 34.1 RDW 14.4 H Plt Count 306 Seg Neutrophils % 81.7 H 11/10/19 02:48 Troponin I < 0.012 Impressions: Abdomen/Pelvis CT 11/10/19 02:11 IMPRESSION: Parenchymal lung change, similar to prior. Single dot of free intraperitoneal air, the source of which is not seen. Small amount of free intraperitoneal fluid. Pelvic fractures, as described. These are adverse change when compared to prior. Adjacent hematoma. Edema and thickening of the stomach Chest X-Ray 11/10/19 02:11 IMPRESSION: Progressive airspace disease right lung base. Small progressive right effusion. Assessment & Plan - Diagnosis (1) Perforated abdominal viscus Is this a current diagnosis for this admission?: Yes (2) Personal history of lung cancer Is this a current diagnosis for this admission?: Yes (3) Fracture of pelvic bone without disruption of posterior arch of pelvic ring Is this a current diagnosis for this admission?: Yes - Time Time Spent with patient: 25-34 minutes Level of Care: IMCU Anticipated discharge: Home Anticipated DC Timeframe: within 48 hours
[2019-11-14] MEDS: HEPARIN SOD (PORCINE) 5,000 UNIT/ML 1 ML VIAL SUBCUT SCH ×3 (05:06→22:42)
[2019-11-14] MEDS: METRONIDAZOLE RTU 500 MG/NS 100 ML IV SCH ×3 (05:06→22:41)
[2019-11-14] MEDS: DEXTROSE 5%-1/2 NORMAL SALINE 1,000 ML IV PRN ×3 (05:07→22:42)
--- NOTE | 2019-11-14 08:01 | PDOC PROGRESS REPORT ---
Subjective Progress Note for:: 11/14/19 Subjective:: Patient continues to feel better, should be getting Gastrografin study today. If that shows good results she should be able to eat later today. Reason For Visit: PERFORATED VISCUS ? ETIOLOGY, FRACTURE PELVIC BONE Physical Exam Vital Signs: Temp Pulse Resp BP Pulse Ox 97.4 F 87 17 163/81 H 100 11/13/19 15:56 11/14/19 02:00 11/13/19 15:56 11/13/19 15:56 11/13/19 15:56 Intake & Output 11/13/19 11/14/19 11/15/19 06:59 06:59 06:59 Intake Total 2049 2049 Balance 2049 2049 Weight 43.7 kg 45.5 kg General appearance: PRESENT: no acute distress, well-developed, well-nourished Head exam: PRESENT: atraumatic, normocephalic Eye exam: PRESENT: conjunctiva pink, EOMI, PERRLA. ABSENT: scleral icterus Ear exam: PRESENT: normal external ear exam Mouth exam: PRESENT: moist, tongue midline Neck exam: ABSENT: carotid bruit, JVD, lymphadenopathy, thyromegaly Respiratory exam: PRESENT: clear to auscultation claire. ABSENT: rales, rhonchi, wheezes Cardiovascular exam: PRESENT: RRR. ABSENT: diastolic murmur, rubs, systolic murmur Pulses: PRESENT: normal dorsalis pedis pul Vascular exam: PRESENT: normal capillary refill GI/Abdominal exam: PRESENT: normal bowel sounds, soft. ABSENT: distended, guarding, mass, organolmegaly, rebound, tenderness Rectal exam: PRESENT: deferred Extremities exam: PRESENT: full ROM. ABSENT: calf tenderness, clubbing, pedal edema Neurological exam: PRESENT: alert, awake, oriented to person, oriented to place, oriented to time, oriented to situation, CN II-XII grossly intact. ABSENT: motor sensory deficit Psychiatric exam: PRESENT: appropriate affect, normal mood. ABSENT: homicidal ideation, suicidal ideation Skin exam: PRESENT: dry, intact, warm. ABSENT: cyanosis, rash Results Laboratory Results: 11/13/19 05:15 11/11/19 06:23 11/10/19 02:48 Troponin I < 0.012 Impressions: Abdomen/Pelvis CT 11/10/19 02:11 IMPRESSION: Parenchymal lung change, similar to prior. Single dot of free intraperitoneal air, the source of which is not seen. Small amount of free intraperitoneal fluid. Pelvic fractures, as described. These are adverse change when compared to prior. Adjacent hematoma. Edema and thickening of the stomach Chest X-Ray 11/10/19 02:11 IMPRESSION: Progressive airspace disease right lung base. Small progressive right effusion. Assessment & Plan - Diagnosis (1) Abdominal pain Qualifiers: Abdominal location: epigastric Qualified Code(s): R10.13 - Epigastric pain Is this a current diagnosis for this admission?: Yes Plan: Improved, secondary to perforated viscus (2) Perforated abdominal viscus Is this a current diagnosis for this admission?: Yes Plan: Improved, Gastrografin study today, if no leak then she should be able to advance diet. (3) Malignant neoplasm of lung Qualifiers: Laterality: right Lung location: overlapping sites Qualified Code(s): C34.81 - Malignant neoplasm of overlapping sites of right bronchus and lung Is this a current diagnosis for this admission?: Yes Plan: Holding all therapy for now (4) Anemia Qualifiers: Anemia type: other cause Other causes of anemia: chronic disease, neoplastic Qualified Code(s): D63.0 - Anemia in neoplastic disease Is this a current diagnosis for this admission?: Yes Plan: Last hemoglobin stable - Time Time Spent with patient: 15-24 minutes
[2019-11-14] MEDS: CEFTRIAXONE 1 GM/D5W RTU 1 GM/50 ML RTUPB IV SCH (10:18)
--- NOTE | 2019-11-14 12:48 | PDOC PROGRESS REPORT ---
Subjective Progress Note for:: 11/14/19 Subjective:: No complaints. No pains. Reason For Visit: PERFORATED VISCUS ? ETIOLOGY, FRACTURE PELVIC BONE Physical Exam Vital Signs: Temp Pulse Resp BP Pulse Ox 97.9 F 75 19 153/65 H 100 11/14/19 11:40 11/14/19 11:40 11/14/19 11:40 11/14/19 11:40 11/14/19 11:40 Intake & Output 11/13/19 11/14/19 11/15/19 06:59 06:59 06:59 Intake Total 2049 2049 933 Balance 2049 2049 93 Weight 43.7 kg 45.5 kg Exam: Abdomen is soft and nontender. Results Laboratory Results: 11/13/19 05:15 11/11/19 06:23 11/10/19 06:29 Blood Blood Culture (PCR) - Final Staphylococcus Species 11/10/19 02:48 Troponin I < 0.012 Impressions: Abdomen/Pelvis CT 11/10/19 02:11 IMPRESSION: Parenchymal lung change, similar to prior. Single dot of free intraperitoneal air, the source of which is not seen. Small amount of free intraperitoneal fluid. Pelvic fractures, as described. These are adverse change when compared to prior. Adjacent hematoma. Edema and thickening of the stomach Chest X-Ray 11/10/19 02:11 IMPRESSION: Progressive airspace disease right lung base. Small progressive right effusion. Assessment & Plan - Diagnosis (1) Perforated abdominal viscus Is this a current diagnosis for this admission?: Yes (2) Malignant neoplasm of lung Qualifiers: Laterality: right Lung location: overlapping sites Qualified Code(s): C34.81 - Malignant neoplasm of overlapping sites of right bronchus and lung Is this a current diagnosis for this admission?: Yes - Time Time Spent: 30 to 50 Minutes Anticipated Discharge Disposition: Home with Home Health Anticipated Discharge Timeframe: within 72 hours - Plan Summary Plan Summary: Patient's abdominal findings are benign at this time. We are awaiting final report of the upper GI series to see if there is any extravasation of the dye. We will start the patient on clear liquids and advance as tolerated if the upper GI series showed no leak.
--- NOTE | 2019-11-14 13:50 | RADIOLOGY REPORT (SQ) ---
EXAM DESCRIPTION: UGI W/ SINGLE CONTRAST IMAGES COMPLETED DATE/TIME: 11/14/2019 9:48 am REASON FOR STUDY: hx free air; ??perforated gastric/duodenal ulce COMPARISON: CT abdomen pelvis 11/10/2019 TECHNIQUE: Under fluoroscopic guidance, patient ingested water soluble contrast. Fluoroscopic spot i mages and routine radiographic images acquired and stored on PACS. LIMITATIONS: None. FLUOROSCOPY TIME: FLUORO TIME: 3.6 minutes of fluoroscopy was used. 30 images saved to PACS. FINDINGS: NEUROMUSCULAR COORDINATION OF SWALLOW: Normal. No aspiration. ESOPHAGEAL MOTILITY: Normal peristalsis. No esophageal spasm. ESOPHAGEAL MUCOSA: Normal mucosa without masses or ulceration. GASTRO-ESOPHAGEAL JUNCTION: No hiatal hernia. Mild gastroesophageal reflux seen. STOMACH: Normal without masses or ulcerations. GASTRIC OUTLET: No delay in emptying. Normal pylorus. DUODENAL BULB: Along the superolateral aspect of the duodenum bulb, there is an outpouching of barium with surrounding edema consistent with an ulcer crater. No extravasation or leak of contrast be see n. DUODENUM: Mucosa normal. No extrinsic masses or malrotation. PROXIMAL JEJUNUM: Normal mucosal pattern. No dilatation, segmentation, strictures or masses. NON-GI TRACT STRUCTURES: No significant finding. OTHER: No other significant finding. IMPRESSION: FINDINGS CONSISTENT WITH A DUODENAL ULCER PROJECTING OFF THE SUPEROLATERAL ASPECT OF THE DUODENAL BULB. NO EXTRAVASATION OF CONTRAST CAN BE SEEN. RECOMMEND ENDOSCOPY FOR FURTHER EVALUATIO N. MILD GASTROESOPHAGEAL REFLUX. COMMENT: Quality ID 145: Final reports for procedures using fluoroscopy that document radiation exp osure indices, or exposure time and number of fluorographic images (if radiation exposure indices are not available) TECHNICAL DOCUMENTATION: JOB ID: [id number] 2010 [employer]- All Rights Reserved Reading location - IP/workstation name: [id number]
--- NOTE | 2019-11-14 19:47 | PDOC PROGRESS REPORT ---
Subjective Progress Note for:: 11/14/19 Subjective:: The Gastrografin test was negative, she was n.p.o. since admission, start clear liquid diet Reason For Visit: PERFORATED VISCUS ? ETIOLOGY, FRACTURE PELVIC BONE Physical Exam Vital Signs: Temp Pulse Resp BP Pulse Ox 97.5 F 90 18 159/91 H 100 11/14/19 15:28 11/14/19 15:28 11/14/19 15:28 11/14/19 15:28 11/14/19 15:28 Intake & Output 11/13/19 11/14/19 11/15/19 06:59 06:59 06:59 Intake Total 2049 2049 93 Balance 2049 2049 93 Weight 43.7 kg 45.5 kg General appearance: PRESENT: no acute distress Eye exam: PRESENT: PERRLA Respiratory exam: PRESENT: clear to auscultation claire Cardiovascular exam: PRESENT: +S1, +S2 GI/Abdominal exam: PRESENT: soft Neurological exam: PRESENT: alert Results Laboratory Results: 11/13/19 05:15 11/11/19 06:23 11/10/19 06:29 Blood Blood Culture (PCR) - Final Staphylococcus Species 11/10/19 06:29 Blood Blood Culture - Final Staphylococcus Hominis 11/10/19 02:48 Troponin I < 0.012 Impressions: Abdomen/Pelvis CT 11/10/19 02:11 IMPRESSION: Parenchymal lung change, similar to prior. Single dot of free intraperitoneal air, the source of which is not seen. Small amount of free intraperitoneal fluid. Pelvic fractures, as described. These are adverse change when compared to prior. Adjacent hematoma. Edema and thickening of the stomach Chest X-Ray 11/10/19 02:11 IMPRESSION: Progressive airspace disease right lung base. Small progressive right effusion. Upper GI Series-Limited 11/14/19 08:00 IMPRESSION: FINDINGS CONSISTENT WITH A DUODENAL ULCER PROJECTING OFF THE SUPEROLATERAL ASPECT OF THE DUODENAL BULB. NO EXTRAVASATION OF CONTRAST CAN BE SEEN. RECOMMEND ENDOSCOPY FOR FURTHER EVALUATION. MILD GASTROESOPHAGEAL REFLUX. Assessment & Plan - Diagnosis (1) Perforated abdominal viscus Is this a current diagnosis for this admission?: Yes Plan: Gastrografin test negative for any leak, patient start clear liquid diet, will advance as tolerated (2) Personal history of lung cancer Is this a current diagnosis for this admission?: Yes (3) Fracture of pelvic bone without disruption of posterior arch of pelvic ring Is this a current diagnosis for this admission?: Yes - Time Time Spent with patient: 25-34 minutes Level of Care: IMCU Medications reviewed and adjusted accordingly: Yes Anticipated discharge: Home Anticipated DC Timeframe: within 72 hours
[2019-11-15] MEDS: METRONIDAZOLE RTU 500 MG/NS 100 ML IV SCH ×3 (06:26→22:47)
[2019-11-15] MEDS: HEPARIN SOD (PORCINE) 5,000 UNIT/ML 1 ML VIAL SUBCUT SCH ×3 (06:27→22:47)
--- NOTE | 2019-11-15 08:33 | PDOC PROGRESS REPORT ---
Subjective Progress Note for:: 11/15/19 Subjective:: Feeling better, tolerated clear liquids yesterday. Reason For Visit: PERFORATED VISCUS ? ETIOLOGY, FRACTURE PELVIC BONE Physical Exam Vital Signs: Temp Pulse Resp BP Pulse Ox 97.5 F 78 18 159/91 H 100 11/14/19 15:28 11/15/19 06:51 11/14/19 15:28 11/14/19 15:28 11/14/19 15:28 Intake & Output 11/14/19 11/15/19 11/16/19 06:59 06:59 06:59 Intake Total 2049 1932 Balance 2049 1932 Weight 45.5 kg 46.4 kg General appearance: PRESENT: no acute distress, well-developed, well-nourished Head exam: PRESENT: atraumatic, normocephalic Eye exam: PRESENT: conjunctiva pink, EOMI, PERRLA. ABSENT: scleral icterus Ear exam: PRESENT: normal external ear exam Mouth exam: PRESENT: moist, tongue midline Neck exam: ABSENT: carotid bruit, JVD, lymphadenopathy, thyromegaly Respiratory exam: PRESENT: clear to auscultation claire. ABSENT: rales, rhonchi, wheezes Cardiovascular exam: PRESENT: RRR. ABSENT: diastolic murmur, rubs, systolic murmur Pulses: PRESENT: normal dorsalis pedis pul Vascular exam: PRESENT: normal capillary refill GI/Abdominal exam: PRESENT: normal bowel sounds, soft. ABSENT: distended, guarding, mass, organolmegaly, rebound, tenderness Rectal exam: PRESENT: deferred Extremities exam: PRESENT: full ROM. ABSENT: calf tenderness, clubbing, pedal edema Neurological exam: PRESENT: alert, awake, oriented to person, oriented to place, oriented to time, oriented to situation, CN II-XII grossly intact. ABSENT: motor sensory deficit Psychiatric exam: PRESENT: appropriate affect, normal mood. ABSENT: homicidal ideation, suicidal ideation Skin exam: PRESENT: dry, intact, warm. ABSENT: cyanosis, rash Results Laboratory Results: 11/13/19 05:15 11/11/19 06:23 11/10/19 06:29 Blood Blood Culture (PCR) - Final Staphylococcus Species 11/10/19 06:29 Blood Blood Culture - Final Staphylococcus Hominis 11/10/19 02:48 Troponin I < 0.012 Impressions: Abdomen/Pelvis CT 11/10/19 02:11 IMPRESSION: Parenchymal lung change, similar to prior. Single dot of free intraperitoneal air, the source of which is not seen. Small amount of free intraperitoneal fluid. Pelvic fractures, as described. These are adverse change when compared to prior. Adjacent hematoma. Edema and thickening of the stomach Chest X-Ray 11/10/19 02:11 IMPRESSION: Progressive airspace disease right lung base. Small progressive right effusion. Upper GI Series-Limited 11/14/19 08:00 IMPRESSION: FINDINGS CONSISTENT WITH A DUODENAL ULCER PROJECTING OFF THE SUPEROLATERAL ASPECT OF THE DUODENAL BULB. NO EXTRAVASATION OF CONTRAST CAN BE SEEN. RECOMMEND ENDOSCOPY FOR FURTHER EVALUATION. MILD GASTROESOPHAGEAL REFLUX. Assessment & Plan - Diagnosis (1) Abdominal pain Qualifiers: Abdominal location: epigastric Qualified Code(s): R10.13 - Epigastric pain Is this a current diagnosis for this admission?: Yes Plan: Improved, we will advance diet to full liquids (2) Perforated abdominal viscus Is this a current diagnosis for this admission?: Yes Plan: Gastrografin study indicates that there is no leak. Trying to advance diet today to full liquids. (3) Malignant neoplasm of lung Qualifiers: Laterality: right Lung location: overlapping sites Qualified Code(s): C34.81 - Malignant neoplasm of overlapping sites of right bronchus and lung Is this a current diagnosis for this admission?: Yes Plan: Holding all therapy for now (4) Anemia Qualifiers: Anemia type: other cause Other causes of anemia: chronic disease, neoplastic Qualified Code(s): D63.0 - Anemia in neoplastic disease Is this a current diagnosis for this admission?: Yes Plan: Stable overall, continue Procrit as an outpatient - Time Time Spent with patient: 15-24 minutes
[2019-11-15] MEDS: DEXTROSE 5%-1/2 NORMAL SALINE 1,000 ML IV PRN ×2 (08:45→17:51)
[2019-11-15] MEDS: CEFTRIAXONE 1 GM/D5W RTU 1 GM/50 ML RTUPB IV SCH (09:33)
--- NOTE | 2019-11-15 10:43 | PDOC PROGRESS REPORT ---
Subjective Progress Note for:: 11/15/19 Subjective:: No complaints no pains tolerating clear liquids Reason For Visit: PERFORATED VISCUS ? ETIOLOGY, FRACTURE PELVIC BONE Physical Exam Vital Signs: Temp Pulse Resp BP Pulse Ox 97.5 F 78 18 159/91 H 100 11/14/19 15:28 11/15/19 06:51 11/14/19 15:28 11/14/19 15:28 11/14/19 15:28 Intake & Output 11/14/19 11/15/19 11/16/19 06:59 06:59 06:59 Intake Total 2049 2933 50 Balance 2049 2933 50 Weight 45.5 kg 46.4 kg Exam: Abdomen is soft nontender Results Laboratory Results: 11/13/19 05:15 11/11/19 06:23 11/10/19 08:44 Blood Blood Culture - Final NO GROWTH IN 5 DAYS 11/10/19 06:29 Blood Blood Culture (PCR) - Final Staphylococcus Species 11/10/19 06:29 Blood Blood Culture - Final Staphylococcus Hominis 11/10/19 02:48 Troponin I < 0.012 Impressions: Abdomen/Pelvis CT 11/10/19 02:11 IMPRESSION: Parenchymal lung change, similar to prior. Single dot of free intraperitoneal air, the source of which is not seen. Small amount of free intraperitoneal fluid. Pelvic fractures, as described. These are adverse change when compared to prior. Adjacent hematoma. Edema and thickening of the stomach Chest X-Ray 11/10/19 02:11 IMPRESSION: Progressive airspace disease right lung base. Small progressive right effusion. Upper GI Series-Limited 11/14/19 08:00 IMPRESSION: FINDINGS CONSISTENT WITH A DUODENAL ULCER PROJECTING OFF THE SUPEROLATERAL ASPECT OF THE DUODENAL BULB. NO EXTRAVASATION OF CONTRAST CAN BE SEEN. RECOMMEND ENDOSCOPY FOR FURTHER EVALUATION. MILD GASTROESOPHAGEAL REFLUX. Assessment & Plan - Diagnosis (1) Perforated abdominal viscus Is this a current diagnosis for this admission?: Yes (2) Malignant neoplasm of lung Qualifiers: Laterality: right Lung location: overlapping sites Qualified Code(s): C34.81 - Malignant neoplasm of overlapping sites of right bronchus and lung Is this a current diagnosis for this admission?: Yes - Time Critical Time spent with patient: 15-24 minutes Anticipated Discharge Disposition: Home with Home Health Anticipated Discharge Timeframe: within 72 hours - Inpatient Certification Medical Necessity: Need Close Monitoring Due to Risk of Patient Decompensation, Need For IV Fluids - Plan Summary Plan Summary: 74-year-old female with known history of cancer of the lung noted to have duodenal ulcer microperforation. Upper GI series yesterday showed no leak and patient tolerating clear liquids. Recommendations: 1 okay to continue increase diet as tolerated 2 will need upper endoscopy on an outpatient basis We will sign off for now. Call for any other questions.
--- NOTE | 2019-11-15 20:22 | PDOC PROGRESS REPORT ---
Subjective Progress Note for:: 11/15/19 Subjective:: Patient seen by the bedside, tolerating clear liquid diet, will advance tomorrow to regular diet hopefully discharge on Reason For Visit: PERFORATED VISCUS ? ETIOLOGY, FRACTURE PELVIC BONE Physical Exam Vital Signs: Temp Pulse Resp BP Pulse Ox 97.5 F 106 H 18 159/91 H 100 11/15/19 10:00 11/15/19 14:00 11/14/19 15:28 11/14/19 15:28 11/14/19 15:28 Intake & Output 11/14/19 11/15/19 11/16/19 06:59 06:59 06:59 Intake Total 2049 2933 2190 Balance 2049 293 2190 Weight 45.5 kg 46.4 kg General appearance: PRESENT: no acute distress Eye exam: PRESENT: PERRLA Respiratory exam: PRESENT: clear to auscultation claire Cardiovascular exam: PRESENT: +S1, +S2 GI/Abdominal exam: PRESENT: soft Neurological exam: PRESENT: alert Results Laboratory Results: 11/13/19 05:15 11/11/19 06:23 11/10/19 08:44 Blood Blood Culture - Final NO GROWTH IN 5 DAYS 11/10/19 02:48 Troponin I < 0.012 Impressions: Abdomen/Pelvis CT 11/10/19 02:11 IMPRESSION: Parenchymal lung change, similar to prior. Single dot of free intraperitoneal air, the source of which is not seen. Small amount of free intraperitoneal fluid. Pelvic fractures, as described. These are adverse change when compared to prior. Adjacent hematoma. Edema and thickening of the stomach Chest X-Ray 11/10/19 02:11 IMPRESSION: Progressive airspace disease right lung base. Small progressive right effusion. Upper GI Series-Limited 11/14/19 08:00 IMPRESSION: FINDINGS CONSISTENT WITH A DUODENAL ULCER PROJECTING OFF THE SUPEROLATERAL ASPECT OF THE DUODENAL BULB. NO EXTRAVASATION OF CONTRAST CAN BE SEEN. RECOMMEND ENDOSCOPY FOR FURTHER EVALUATION. MILD GASTROESOPHAGEAL REFLUX. Assessment & Plan - Diagnosis (1) Perforated abdominal viscus Is this a current diagnosis for this admission?: Yes (2) Personal history of lung cancer Is this a current diagnosis for this admission?: Yes (3) Fracture of pelvic bone without disruption of posterior arch of pelvic ring Is this a current diagnosis for this admission?: Yes - Time Time Spent with patient: 25-34 minutes Level of Care: IMCU Anticipated discharge: Home Anticipated DC Timeframe: within 48 hours
[2019-11-16] MEDS: DEXTROSE 5%-1/2 NORMAL SALINE 1,000 ML IV PRN ×2 (02:51→13:40)
[2019-11-16] MEDS: HEPARIN SOD (PORCINE) 5,000 UNIT/ML 1 ML VIAL SUBCUT SCH ×3 (06:19→21:18)
[2019-11-16] MEDS: METRONIDAZOLE RTU 500 MG/NS 100 ML IV SCH ×3 (06:19→21:19)
--- NOTE | 2019-11-16 08:25 | PDOC PROGRESS REPORT ---
Subjective Progress Note for:: 11/16/19 Subjective:: No acute events overnight, patient is able to tolerate full liquids yesterday Reason For Visit: PERFORATED VISCUS ? ETIOLOGY, FRACTURE PELVIC BONE Physical Exam Vital Signs: Temp Pulse Resp BP Pulse Ox 98.1 F 78 16 147/70 H 100 11/16/19 07:47 11/16/19 07:47 11/16/19 07:47 11/16/19 07:47 11/16/19 07:47 Intake & Output 11/15/19 11/16/19 11/17/19 06:59 06:59 06:59 Intake Total 2933 3190 Output Total 500 Balance 2933 2690 Weight 46.4 kg 47.9 kg General appearance: PRESENT: no acute distress, well-developed, well-nourished Head exam: PRESENT: atraumatic, normocephalic Eye exam: PRESENT: conjunctiva pink, EOMI, PERRLA. ABSENT: scleral icterus Ear exam: PRESENT: normal external ear exam Mouth exam: PRESENT: moist, tongue midline Neck exam: ABSENT: carotid bruit, JVD, lymphadenopathy, thyromegaly Respiratory exam: PRESENT: clear to auscultation claire. ABSENT: rales, rhonchi, wheezes Cardiovascular exam: PRESENT: RRR. ABSENT: diastolic murmur, rubs, systolic murmur Pulses: PRESENT: normal dorsalis pedis pul Vascular exam: PRESENT: normal capillary refill GI/Abdominal exam: PRESENT: normal bowel sounds, soft. ABSENT: distended, guarding, mass, organolmegaly, rebound, tenderness Rectal exam: PRESENT: deferred Extremities exam: PRESENT: full ROM. ABSENT: calf tenderness, clubbing, pedal edema Neurological exam: PRESENT: alert, awake, oriented to person, oriented to place, oriented to time, oriented to situation, CN II-XII grossly intact. ABSENT: motor sensory deficit Psychiatric exam: PRESENT: appropriate affect, normal mood. ABSENT: homicidal ideation, suicidal ideation Skin exam: PRESENT: dry, intact, warm. ABSENT: cyanosis, rash Results Laboratory Results: 11/13/19 05:15 11/11/19 06:23 11/10/19 08:44 Blood Blood Culture - Final NO GROWTH IN 5 DAYS 11/10/19 02:48 Troponin I < 0.012 Impressions: Abdomen/Pelvis CT 11/10/19 02:11 IMPRESSION: Parenchymal lung change, similar to prior. Single dot of free intraperitoneal air, the source of which is not seen. Small amount of free intraperitoneal fluid. Pelvic fractures, as described. These are adverse change when compared to prior. Adjacent hematoma. Edema and thickening of the stomach Chest X-Ray 11/10/19 02:11 IMPRESSION: Progressive airspace disease right lung base. Small progressive right effusion. Upper GI Series-Limited 11/14/19 08:00 IMPRESSION: FINDINGS CONSISTENT WITH A DUODENAL ULCER PROJECTING OFF THE SUPEROLATERAL ASPECT OF THE DUODENAL BULB. NO EXTRAVASATION OF CONTRAST CAN BE SEEN. RECOMMEND ENDOSCOPY FOR FURTHER EVALUATION. MILD GASTROESOPHAGEAL REFLUX. Assessment & Plan - Diagnosis (1) Abdominal pain Qualifiers: Abdominal location: epigastric Qualified Code(s): R10.13 - Epigastric pain Is this a current diagnosis for this admission?: Yes Plan: Improved,Advancing diet today to regular (2) Perforated abdominal viscus Is this a current diagnosis for this admission?: Yes Plan: Improving, tolerating full liquid so we will move to regular diet today (3) Malignant neoplasm of lung Qualifiers: Laterality: right Lung location: overlapping sites Qualified Code(s): C34.81 - Malignant neoplasm of overlapping sites of right bronchus and lung Is this a current diagnosis for this admission?: Yes Plan: Holding all therapy for now, patient will hold therapy on discharge as well, Until she sees us as an outpatient (4) Anemia Qualifiers: Anemia type: other cause Other causes of anemia: chronic disease, neoplastic Qualified Code(s): D63.0 - Anemia in neoplastic disease Is this a current diagnosis for this admission?: Yes Plan: Continue Procrit as an outpatient - Time Time Spent with patient: 35 or more minutes
[2019-11-16] MEDS: CEFTRIAXONE 1 GM/D5W RTU 1 GM/50 ML RTUPB IV SCH (09:14)
[2019-11-16] MEDS ORDERED: OXYCODONE HCL IR 5 MG TABLET PO PRN (16:15)
--- NOTE | 2019-11-16 16:20 | PDOC PROGRESS REPORT ---
Subjective Progress Note for:: 11/16/19 Subjective:: Patient is tolerating regular diet, start back on her regular medication for blood pressure control Reason For Visit: PERFORATED VISCUS ? ETIOLOGY, FRACTURE PELVIC BONE Physical Exam Vital Signs: Temp Pulse Resp BP Pulse Ox 98.2 F 93 14 160/83 H 100 11/16/19 16:03 11/16/19 16:03 11/16/19 16:03 11/16/19 16:03 11/16/19 16:03 Intake & Output 11/15/19 11/16/19 11/17/19 06:59 06:59 06:59 Intake Total 2933 3190 1530 Output Total 500 Balance 2933 2690 1530 Weight 46.4 kg 47.9 kg General appearance: PRESENT: no acute distress Eye exam: PRESENT: PERRLA Respiratory exam: PRESENT: clear to auscultation claire Cardiovascular exam: PRESENT: +S1, +S2 GI/Abdominal exam: PRESENT: soft Neurological exam: PRESENT: alert Results Laboratory Results: 11/13/19 05:15 11/11/19 06:23 11/10/19 02:48 Troponin I < 0.012 Impressions: Abdomen/Pelvis CT 11/10/19 02:11 IMPRESSION: Parenchymal lung change, similar to prior. Single dot of free intraperitoneal air, the source of which is not seen. Small amount of free intraperitoneal fluid. Pelvic fractures, as described. These are adverse change when compared to prior. Adjacent hematoma. Edema and thickening of the stomach Chest X-Ray 11/10/19 02:11 IMPRESSION: Progressive airspace disease right lung base. Small progressive right effusion. Upper GI Series-Limited 11/14/19 08:00 IMPRESSION: FINDINGS CONSISTENT WITH A DUODENAL ULCER PROJECTING OFF THE SUPEROLATERAL ASPECT OF THE DUODENAL BULB. NO EXTRAVASATION OF CONTRAST CAN BE SEEN. RECOMMEND ENDOSCOPY FOR FURTHER EVALUATION. MILD GASTROESOPHAGEAL REFLUX. Assessment & Plan - Diagnosis (1) Perforated abdominal viscus Is this a current diagnosis for this admission?: Yes (2) Personal history of lung cancer Is this a current diagnosis for this admission?: Yes (3) Fracture of pelvic bone without disruption of posterior arch of pelvic ring Is this a current diagnosis for this admission?: Yes - Time Time Spent with patient: 15-24 minutes Level of Care: IMCU Medications reviewed and adjusted accordingly: Yes Anticipated discharge: Home Anticipated DC Timeframe: within 24 hours
[2019-11-16] MEDS: VALSARTAN 160 MG TABLET PO SCH (17:04)
[2019-11-16] MEDS: AMLODIPINE BESYLATE 10 MG TABLET PO SCH (17:05)
[2019-11-16] MEDS: PREGABALIN 75 MG CAPSULE PO SCH ×2 (17:05→21:13)
[2019-11-16] MEDS: METOPROLOL SUCCINATE 25 MG TAB.SR.24H PO SCH (17:05)
[2019-11-16] MEDS: FOLIC ACID 1 MG TABLET PO SCH (17:05)
[2019-11-16] MEDS: OSIMERTINIB MESYLATE 80 MG PO SCH (17:06)
[2019-11-16] MEDS: MEGESTROL ACETATE 20 MG TABLET PO SCH (18:11)
[2019-11-17] MEDS: DEXTROSE 5%-1/2 NORMAL SALINE 1,000 ML IV PRN (02:02)
[2019-11-17] MEDS: METRONIDAZOLE RTU 500 MG/NS 100 ML IV SCH (06:18)
[2019-11-17] MEDS: HEPARIN SOD (PORCINE) 5,000 UNIT/ML 1 ML VIAL SUBCUT SCH ×2 (06:18→13:31)
--- NOTE | 2019-11-17 08:19 | PDOC PROGRESS REPORT ---
Subjective Progress Note for:: 11/17/19 Subjective:: Patient did tolerate some regular diet yesterday, feels ready to go home today Reason For Visit: PERFORATED VISCUS ? ETIOLOGY, FRACTURE PELVIC BONE Physical Exam Vital Signs: Temp Pulse Resp BP Pulse Ox 98.4 F 94 18 123/75 100 11/17/19 08:16 11/17/19 08:16 11/17/19 08:16 11/17/19 08:16 11/17/19 08:16 Intake & Output 11/16/19 11/17/19 11/18/19 06:59 06:59 06:59 Intake Total 3190 2950 Output Total 500 600 Balance 2690 2350 Weight 47.9 kg 44.1 kg General appearance: PRESENT: no acute distress, well-developed, well-nourished Head exam: PRESENT: atraumatic, normocephalic Eye exam: PRESENT: conjunctiva pink, EOMI, PERRLA. ABSENT: scleral icterus Ear exam: PRESENT: normal external ear exam Mouth exam: PRESENT: moist, tongue midline Neck exam: ABSENT: carotid bruit, JVD, lymphadenopathy, thyromegaly Respiratory exam: PRESENT: clear to auscultation claire. ABSENT: rales, rhonchi, wheezes Cardiovascular exam: PRESENT: RRR. ABSENT: diastolic murmur, rubs, systolic murmur Pulses: PRESENT: normal dorsalis pedis pul Vascular exam: PRESENT: normal capillary refill GI/Abdominal exam: PRESENT: normal bowel sounds, soft. ABSENT: distended, guarding, mass, organolmegaly, rebound, tenderness Rectal exam: PRESENT: deferred Extremities exam: PRESENT: full ROM. ABSENT: calf tenderness, clubbing, pedal edema Neurological exam: PRESENT: alert, awake, oriented to person, oriented to place, oriented to time, oriented to situation, CN II-XII grossly intact. ABSENT: motor sensory deficit Psychiatric exam: PRESENT: appropriate affect, normal mood. ABSENT: homicidal ideation, suicidal ideation Skin exam: PRESENT: dry, intact, warm. ABSENT: cyanosis, rash Results Laboratory Results: 11/13/19 05:15 11/11/19 06:23 11/10/19 02:48 Troponin I < 0.012 Impressions: Abdomen/Pelvis CT 11/10/19 02:11 IMPRESSION: Parenchymal lung change, similar to prior. Single dot of free intraperitoneal air, the source of which is not seen. Small amount of free intraperitoneal fluid. Pelvic fractures, as described. These are adverse change when compared to prior. Adjacent hematoma. Edema and thickening of the stomach Chest X-Ray 11/10/19 02:11 IMPRESSION: Progressive airspace disease right lung base. Small progressive right effusion. Upper GI Series-Limited 11/14/19 08:00 IMPRESSION: FINDINGS CONSISTENT WITH A DUODENAL ULCER PROJECTING OFF THE SUPEROLATERAL ASPECT OF THE DUODENAL BULB. NO EXTRAVASATION OF CONTRAST CAN BE SEEN. RECOMMEND ENDOSCOPY FOR FURTHER EVALUATION. MILD GASTROESOPHAGEAL REFLUX. Assessment & Plan - Diagnosis (1) Abdominal pain Qualifiers: Abdominal location: epigastric Qualified Code(s): R10.13 - Epigastric pain Is this a current diagnosis for this admission?: Yes Plan: Resolved now (2) Perforated abdominal viscus Is this a current diagnosis for this admission?: Yes Plan: Seems to have sealed, tolerating regular diet, should be able to discharge home today. (3) Malignant neoplasm of lung Qualifiers: Laterality: right Lung location: overlapping sites Qualified Code(s): C34.81 - Malignant neoplasm of overlapping sites of right bronchus and lung Is this a current diagnosis for this admission?: Yes Plan: Discussed again with patient that she should hold her oral chemotherapeutic until she sees us in about 2 weeks, and will decide on proper time of reini tiation which may not be for another 4 weeks. (4) Anemia Qualifiers: Anemia type: other cause Other causes of anemia: chronic disease, neoplastic Qualified Code(s): D63.0 - Anemia in neoplastic disease Is this a current diagnosis for this admission?: Yes Plan: We will follow as an outpatient - Time Time Spent with patient: 35 or more minutes
[2019-11-17] MEDS: PREGABALIN 75 MG CAPSULE PO SCH (09:22)
[2019-11-17] MEDS: METOPROLOL SUCCINATE 25 MG TAB.SR.24H PO SCH (09:22)
[2019-11-17] MEDS: VALSARTAN 160 MG TABLET PO SCH (09:23)
[2019-11-17] MEDS: AMLODIPINE BESYLATE 10 MG TABLET PO SCH (09:23)
[2019-11-17] MEDS: MEGESTROL ACETATE 20 MG TABLET PO SCH (09:23)
[2019-11-17] MEDS: FOLIC ACID 1 MG TABLET PO SCH (09:23)
[2019-11-17] MEDS: CEFTRIAXONE 1 GM/D5W RTU 1 GM/50 ML RTUPB IV SCH (09:24)
[2019-11-17] MEDS: OSIMERTINIB MESYLATE 80 MG PO SCH (09:26)
[2019-11-17 17:27] VITALS: BP 166/97
--- NOTE | 2019-11-17 18:54 | PDOC DISCHARGE SUMMARY ---
Impression - Admit/DC Date/PCP Admission Date/Primary Care Provider: 11/10/19 05:53 EDU BARAJAS MD Discharge Date: 11/17/19 - Discharge Diagnosis (1) Perforated abdominal viscus Is this a current diagnosis for this admission?: Yes (2) Personal history of lung cancer Is this a current diagnosis for this admission?: Yes (3) Fracture of pelvic bone without disruption of posterior arch of pelvic ring Is this a current diagnosis for this admission?: Yes - Additional Information Resuscitation Status: Full Code Discharge Diet: As Tolerated Referrals: ART VEGA MD [ACTIVE STAFF] - 11/29/19 10:15 am Prescriptions: Pantoprazole Sodium 40 mg PO DAILY #90 tablet. [place] Medications: Amlodipine Besylate [Norvasc 10 mg Tablet] 10 mg PO DAILY 09/03/12 Metoprolol Succinate [Toprol Xl 25 mg Tab.sr] 1 tab PO DAILY 03/08/16 Folic Acid [Folvite 1 mg Tablet] 1 mg PO DAILY 09/30/19 Megestrol Acetate [Megace 20 mg Tablet] 40 mg PO BID 09/30/19 Osimertinib Mesylate [Tagrisso] 80 mg PO DAILY 09/30/19 Valsartan [Diovan 160 mg Tablet] 160 mg PO DAILY 09/30/19 Montelukast Sodium [Singulair 10 mg Tablet] 10 mg PO QHS 11/10/19 Oxycodone HCl [Oxy-Ir 5 mg Tablet] 5 mg PO Q6HP PRN 11/10/19 Pregabalin [Lyrica 75 mg Capsule] 75 mg PO Q12 11/10/19 Pantoprazole Sodium 40 mg PO DAILY #90 tablet. 11/17/19 History of Present Illiness History of Present Illness: KYE SANDRA is a 74 year old female,She came to the emergency room earlier this morning for evaluation of epigastric pain, it is of sudden onset. The CAT scan of the abdomen was obtained in the emergency room, it showed normal size liver the pancreas is unremarkable, spleen is unremarkable, a free intraperitoneal air was also found the source was not clear. She has a history of bleeding peptic ulcer disease, couple of months ago she was in the [facility], she is a crow of the [facility], while she was in [facility] she had a GI bleed, she underwent upper endoscopy in the [facility], blood transfusion, I suspect that she may have suffered perforated duodenal ulcer or gastric ulcer, she also have a history of lung cancer no evidence of recurrence at this time. The CT scan also showed fracture of pelvic bones apparently this is somewhat chronic from prior imaging. She was seen by the surgeon and also by the treating oncologist, it was felt that she is not a candidate for surgical intervention at this time Hospital Course Hospital Course: Patient was admitted for the management of perforated viscus, she was manage conservatively, she was seen by the surgeon, it was felt that she was not a candidate for surgery. She was kept n.p.o. for 5 days treated with intravenous pantoprazole, antibiotic empirically. She ultimately had Gastrografin image of the GI tract there was no leak demonstrated from the Gastrografin test. She was seen by the oncologist Dr. Vega, she was followed by the surgeon throughout hospital stay. When she presented she had epigastric pain, she has been pain- free for the last couple of days.No specific organ was demonstrated to be perforated, the CAT scan that was done on admission revealed free air under the diaphragm suggesting a perforated viscus Physical Exam Vital Signs: Temp Pulse Resp BP Pulse Ox 98.1 F 95 16 166/97 H 100 11/17/19 17:26 11/17/19 17:26 11/17/19 17:26 11/17/19 17:26 11/17/19 17:26 Intake & Output 11/16/19 11/17/19 11/18/19 06:59 06:59 06:59 Intake Total 3190 2950 50 Output Total 500 600 Balance 2690 2350 50 Weight 47.9 kg 44.1 kg 44.1 kg General appearance: PRESENT: no acute distress Eye exam: PRESENT: PERRLA Respiratory exam: PRESENT: clear to auscultation claire Cardiovascular exam: PRESENT: +S1, +S2 GI/Abdominal exam: PRESENT: soft Neurological exam: PRESENT: alert, CN II-XII grossly intact Results Laboratory Results: WBC 6.8 10^3/uL (4.0-10.5) 11/13/19 05:15 RBC 3.15 10^6/uL (3.72-5.28) L 11/13/19 05:15 Hgb 9.6 g/dL (12.0-15.5) L 11/13/19 05:15 Hct 28.2 % (36.0-47.0) L 11/13/19 05:15 MCV 89 fl (80-97) 11/13/19 05:15 MCH 30.4 pg (27.0-33.4) 11/13/19 05:15 MCHC 34.1 g/dL (32.0-36.0) 11/13/19 05:15 RDW 14.4 % (11.5-14.0) H 11/13/19 05:15 Plt Count 306 10^3/uL (150-450) 11/13/19 05:15 Lymph % (Auto) 10.2 % (13-45) L 11/13/19 05:15 [place] % (Auto) 5.7 % (3-13) 11/13/19 05:15 Eos % (Auto) 1.9 % (0-6) 11/13/19 05:15 Baso % (Auto) 0.5 % (0-2) 11/13/19 05:15 Absolute Neuts (auto) 5.5 10^3/uL (1.7-8.2) 11/13/19 05:15 Absolute Lymphs (auto) 0.7 10^3/uL (0.5-4.7) 11/13/19 05:15 Absolute Monos (auto) 0.4 10^3/uL (0.1-1.4) 11/13/19 05:15 Absolute Eos (auto) 0.1 10^3/uL (0.0-0.6) 11/13/19 05:15 Absolute Basos (auto) 0.0 10^3/uL (0.0-0.2) 11/13/19 05:15 Seg Neutrophils % 81.7 % (42-78) H 11/13/19 05:15 PT 13.7 SEC (11.4-15.4) 11/10/19 08:44 INR 1.03 11/10/19 08:44 APTT 30.0 SEC (23.5-35.8) 11/10/19 08:44 Sodium 143.9 mmol/L (137-145) 11/11/19 06:23 Potassium 3.6 mmol/L (3.6-5.0) 11/11/19 06:23 Chloride 114 mmol/L (98-107) H 11/11/19 06:23 Carbon Dioxide 19 mmol/L (22-30) L 11/11/19 06:23 Anion Gap 11 (5-19) 11/11/19 06:23 BUN 23 mg/dL (7-20) H 11/11/19 06:23 Creatinine 1.36 mg/dL (0.52-1.25) H 11/11/19 06:23 Est GFR ( Amer) 46 (>60) L 11/11/19 06:23 Est GFR (MDRD) Non-Af 38 (>60) L 11/11/19 06:23 Glucose 102 mg/dL (75-110) 11/11/19 06:23 POC Glucose 83 mg/dL (70-110) 11/16/19 11:23 Hemoglobin A1c % 5.3 % (4.7-6.0) 11/11/19 06:23 Lactic Acid 0.8 mmol/L (0.7-2.1) 11/10/19 02:48 Calcium 9.0 mg/dL (8.4-10.2) 11/11/19 06:23 Total Bilirubin 0.6 mg/dL (0.2-1.3) 11/11/19 06:23 Direct Bilirubin 0.5 mg/dL (0.0-0.4) H 11/11/19 06:23 Neonat Total Bilirubin Not Reportable 11/11/19 06:23 Neonat Direct Bilirubin Not Reportable 11/11/19 06:23 Neonat Indirect Bili Not Reportable 11/11/19 06:23 AST 19 U/L (14-36) 11/11/19 06:23 ALT 8 U/L (<35) 11/11/19 06:23 Alkaline Phosphatase 110 U/L (38-126) 11/11/19 06:23 Ammonia < 8.7 umol/L (9-33) L 11/10/19 08:44 Troponin I < 0.012 ng/mL 11/10/19 02:48 Total Protein 6.3 g/dL (6.3-8.2) 11/11/19 06:23 Albumin 3.3 g/dL (3.5-5.0) L 11/11/19 06:23 Amylase 224 U/L (30-110) H 11/10/19 08:44 Lipase 508.3 U/L (23-300) H 11/10/19 08:44 TSH 2.39 uIU/mL (0.47-4.68) 11/10/19 08:44 Free T4 1.56 ng/dL (0.78-2.19) 11/10/19 08:44 Urine Color STRAW 11/10/19 05:11 Urine Appearance CLEAR 11/10/19 05:11 Urine pH 6.0 (5.0-9.0) 11/10/19 05:11 Ur Specific [place] 1.016 11/10/19 05:11 Urine Protein 100 mg/dL (NEGATIVE) H 11/10/19 05:11 Urine Glucose (UA) NEGATIVE mg/dL (NEGATIVE) 11/10/19 05:11 Urine Ketones NEGATIVE mg/dL (NEGATIVE) 11/10/19 05:11 Urine Blood NEGATIVE (NEGATIVE) 11/10/19 05:11 Urine Nitrite NEGATIVE (NEGATIVE) 11/10/19 05:11 Urine Bilirubin NEGATIVE (NEGATIVE) 11/10/19 05:11 Urine Urobilinogen NEGATIVE mg/dL (<2.0) 11/10/19 05:11 Ur Leukocyte Esterase NEGATIVE (NEGATIVE) 11/10/19 05:11 Urine WBC RARE /HPF 11/10/19 05:11 U Non-Squamous Epi Cells RARE /HPF 11/10/19 05:11 Urine Ascorbic Acid NEGATIVE (NEGATIVE) 11/10/19 05:11 Urine Opiates Screen NEGATIVE 11/10/19 05:11 Urine Methadone Screen NEGATIVE 11/10/19 05:11 Ur Barbiturates Screen NEGATIVE 11/10/19 05:11 Ur Phencyclidine Scrn NEGATIVE 11/10/19 05:11 Ur Amphetamines Screen NEGATIVE 11/10/19 05:11 U Benzodiazepines Scrn NEGATIVE 11/10/19 05:11 Urine Cocaine Screen NEGATIVE 11/10/19 05:11 U Marijuana (THC) Screen NEGATIVE 11/10/19 05:11 11/10/19 02:48 Troponin I < 0.012 Impressions: Abdomen/Pelvis CT 11/10/19 02:11 IMPRESSION: Parenchymal lung change, similar to prior. Single dot of free intraperitoneal air, the source of which is not seen. Small amount of free intraperitoneal fluid. Pelvic fractures, as described. These are adverse change when compared to prior. Adjacent hematoma. Edema and thickening of the stomach Chest X-Ray 11/10/19 02:11 IMPRESSION: Progressive airspace disease right lung base. Small progressive right effusion. Upper GI Series-Limited 11/14/19 08:00 IMPRESSION: FINDINGS CONSISTENT WITH A DUODENAL ULCER PROJECTING OFF THE SUPEROLATERAL ASPECT OF THE DUODENAL BULB. NO EXTRAVASATION OF CONTRAST CAN BE SEEN. RECOMMEND ENDOSCOPY FOR FURTHER EVALUATION. MILD GASTROESOPHAGEAL REFLUX. Stroke Is this a Stroke Patient?: No Acute Heart Failure - Is this a Heart Failure Patient?: No
== END 2019-11-17 17:46 | disposition home or self-care (01) | DRG 380 ==
LOC: ER 01:33 → EH 05:53 → 4N 06:55 → 3W 09:30
PROVIDERS: ADMIT Internal Medicine; ATTEND Internal Medicine
DX: K26.5 Chronic or unspecified duodenal ulcer with perforation (principal); E43 Unspecified severe protein-calorie malnutrition; C34.81 Malignant neoplasm of overlapping sites of right bronchus and lung; Z68.1 Body mass index [BMI] 19.9 or less, adult; K66.8 Other specified disorders of peritoneum; I10 Essential (primary) hypertension; M19.90 Unspecified osteoarthritis, unspecified site; D63.0 Anemia in neoplastic disease; Z79.899 Other long term (current) drug therapy; S32.89XD Fracture of other parts of pelvis, subsequent encounter for fracture with routine healing; M81.0 Age-related osteoporosis without current pathological fracture; I73.9 Peripheral vascular disease, unspecified; F03.90 Unspecified dementia, unspecified severity, without behavioral disturbance, psychotic disturbance, mood disturbance, and anxiety; Z91.81 History of falling; Z85.05 Personal history of malignant neoplasm of liver
CPT/HCPCS: 36415; 71045; 74177; 74240; 80053; 80307; 81001; 82140; 82150; 82962; 83036; 83605; 83690; 84439; 84443; 84484; 85025; 85610; 85730; 87040; 87077; 87086; 87150; 87186; 93005; 93010; 96365; 96375; 99285; C9113; J0696; J1450; J1644; J2270; J2405; J3490; J7042

== ENCOUNTER → 2019-12-07 | Outpatient (CLI) | payer MEDICARE, OTHER ==
--- NOTE | 2019-12-07 09:38 | WOMENS IMAGING REPORT ---
EXAM DESCRIPTION: BONE DENSITY HIP/SPINE IMAGES COMPLETED DATE/TIME: 12/07/2019 9:07 am REASON FOR STUDY: M81.0 AGE-RELATED OSTEOPOROSIS WITHOUT CURRENT PATHOLOGICAL FRACTURE M81.0 AGE-RE LATED OSTEOPOROSIS W/O CURRENT PATHOLOGICAL FRAC COMPARISON: 10/16/2004 TECHNIQUE: Dual-Energy X-ray Absorptiometry (DEXA) of the AP Spine and Hip. LIMITATIONS: None. FINDINGS: LUMBAR SPINE: The bone mineral density (BMD) measured from L1-L4 in the AP projection correlates with a T-score of -2.4, which is osteopenia as defined by the World Health Organization. There is been a -0.9% chain s kim baseline. HIP: The bone mineral density (BMD) measured in the left hip correlates with a T-score of -3.0, which is o steoporosis as defined by the World Health Organization. There is been a -14.5% chain since baseline . IMPRESSION: 1. LUMBAR SPINE: OSTEOPENIA. 2. HIP: OSTEOPOROSIS. COMMENT: The World Health Organization defines low BMD as follows: T-score: Normal: Greater than -1.0 Osteopenia: Between -1.0 and -2.5 Osteoporosis: Less than -2.5 without fractures Established osteoporosis: Less than -2.5 with fractures In general, you may wish to consider: Diagnosis Treatment Follow-up DEXA Normal BMD Prevention 2-3 years Osteopenia Prevention/Therapy 1-2 years Osteoporosis Therapy Yearly TECHNICAL DOCUMENTATION: JOB ID: [id number] 2010 [employer]- All Rights Reserved Reading location - IP/workstation name: [email or web address]
== END ==
LOC: WI 08:20
PROVIDERS: ATTEND Internal Medicine
DX: M81.0 Age-related osteoporosis without current pathological fracture (principal)
CPT/HCPCS: 77080

== ENCOUNTER → 2020-02-15 | Outpatient (CLI) | payer MEDICARE, OTHER ==
--- NOTE | 2020-02-15 14:46 | RADIOLOGY REPORT (SQ) ---
EXAM DESCRIPTION: CT CHEST WITHOUT IMAGES COMPLETED DATE/TIME: 02/15/2020 9:46 am REASON FOR STUDY: C34.12 MALIGNANT NEOPLASM OF UPPER LOBE, LEFT BRONCHUS OR LUNG C34.12 MALIGNANT N EOPLASM OF UPPER LOBE, LEFT BRONCHUS OR PIEDAD COMPARISON: CT of the chest without contrast from 09/09/2019 TECHNIQUE: CT scan performed of the chest without intravenous contrast. Images reviewed with lung, soft tissue and bone windows. Reconstructed coronal and sagittal MPR images reviewed. All images st ored on PACS. All CT scanners at this facility use dose modulation, iterative reconstruction, and/or weight based d osing when appropriate to reduce radiation dose to as low as reasonably achievable (ALARA). [facility]: Dose Right [facility]: CareDose [facility]: Dose Right [facility]: Teradose 4D [facility]: Smart EXPO RADIATION DOSE: CT Rad equipment meets quality standard of care and radiation dose reduction techniq ues were employed. CTDIvol: 4.4 - 4.5 mGy. DLP: 386 mGy-cm. LIMITATIONS: No technical limitations. FINDINGS: LUNGS AND PLEURA: The trachea and main bronchi are patent. There is re- demonstration of abrupt truncation of the right middle lobar bronchus (image 67 of series 6). The area of masslike co nsolidation in the right middle lobe has increased in size and since the prior CT the patient has dev eloped innumerable bilateral solid pulmonary nodules. There is no pleural effusion or pneumothorax. HILAR AND MEDIASTINAL STRUCTURES: Evaluation of the laura for adenopathy is limited by the absence of intravenous contrast. There is no mediastinal adenopathy or mass. HEART AND VASCULAR STRUCTURES: The ascending thoracic aorta measures 3.9 x 3.8 cm. There is atherosc lerotic calcification of the thoracic aorta, aortic annulus and coronary arteries. There is no peric ardial effusion. UPPER ABDOMEN: Refer to the separate report of the CT of the abdomen. THYROID AND OTHER SOFT TISSUES: There is a new enlarged lymph node in the right axilla (image 17 of s eries 2) that measures 2.3 x 1.1 cm. BONES: The 4 mm lucent lesion within the posterior aspect of the T11 vertebral body (image 30 of seri es 602) is unchanged. HARDWARE: None in the chest. OTHER: No other findings. IMPRESSION: Findings as detailed above consistent with progression of metastatic disease given the i ncrease in the size of the area of masslike consolidation in the right middle lobe, the development o f innumerable bilateral solid pulmonary nodules, and new enlarged right axillary lymph node. TECHNICAL DOCUMENTATION: JOB ID: [id number] Quality ID # [id number]: Final reports with documentation of one or more dose reduction techniques (e.g., Au tomated exposure control, adjustment of the mA and/or kV according to patient size, use of iterative reconstruction technique) 2010 [employer]- All Rights Reserved Reading location - IP/workstation name: [email or web address]
--- NOTE | 2020-02-15 15:01 | RADIOLOGY REPORT (SQ) ---
EXAM DESCRIPTION: CT ABD/PELVIS NO ORAL OR IV IMAGES COMPLETED DATE/TIME: 02/15/2020 9:46 am REASON FOR STUDY: C34.12 MALIGNANT NEOPLASM OF UPPER LOBE, LEFT BRONCHUS OR LUNG C34.12 MALIGNANT N EOPLASM OF UPPER LOBE, LEFT BRONCHUS OR PIEDAD COMPARISON: CT of the abdomen and pelvis with contrast from 11/10/2019. TECHNIQUE: CT scan of the abdomen and pelvis performed without intravenous or oral contrast. Images reviewed with lung, soft tissue, and bone windows. Reconstructed coronal and sagittal MPR images revi ewed. All images stored on PACS. All CT scanners at this facility use dose modulation, iterative reconstruction, and/or weight based d osing when appropriate to reduce radiation dose to as low as reasonably achievable (ALARA). [facility]: Dose Right [facility]: CareDose [facility]: Dose Right [facility]: Teradose 4D [facility]: Smart Technologies LIMITATIONS: None. FINDINGS: LOWER CHEST: Refer to the separate report of the CT of the chest. NON-CONTRASTED LIVER, SPLEEN, ADRENALS: Evaluation is limited by the absence of intravenous contrast. There is no evidence hepatic steatosis. The spleen is normal in size. There is no adrenal mass. PANCREAS: No acute gross abnormality of the gallbladder. GALLBLADDER: Cholelithiasis. RIGHT KIDNEY AND URETER: Evaluation is limited by the absence of intravenous contrast. The hypodense lesion in the interpolar portion of the kidney (image 33 of series 63) is unchanged. The hyperdense lesion in the posterior cortex of the kidney are (image 28 of series 3) likely represents hemorrhagi c or proteinaceous cyst. There is no hydronephrosis, nephrolithiasis, hydroureter or ureterolithiasi s. LEFT KIDNEY AND URETER: Evaluation is limited by the absence of intravenous contrast. There is no hy dronephrosis, nephrolithiasis, hydroureter or ureterolithiasis. AORTA AND RETROPERITONEUM: Atherosclerotic calcification of the abdominal aorta and iliac arteries. There is no abdominal aortic aneurysm. There is no retroperitoneal adenopathy, hemorrhage or mass. BOWEL AND PERITONEAL CAVITY: No bowel obstruction, bowel wall thickening or pericolonic/ perienteric inflammation. There is no mesenteric adenopathy, free intraperitoneal fluid or mesenteric/omental in flammation. APPENDIX: Normal. PELVIS, BLADDER, AND ABDOMINAL WALL:No abdominal wall mass or hernia. BONES: Osteopenia and subacute/chronic sacral and pelvic fractures. The sclerotic lesion within the L3 vertebral body is unchanged. The degree of grade 1 anterolisthesis of L4 relative to L5 and of gr destiny 1 retrolisthesis of L3 relative to L4 are unchanged. There is no acute fracture. OTHER: No other findings. IMPRESSION: No acute intra-abdominal abnormality. COMMENT: Quality ID # [id number]: Final reports with documentation of one or more dose reduction techniques (e.g., Automated exposure control, adjustment of the mA and/or kV according to patient size, use of iterative reconstruction technique) TECHNICAL DOCUMENTATION: JOB ID: [id number] 2010 [employer] - [employer]- All Rights Reserved Reading location - IP/workstation name: [email or web address]
== END ==
LOC: RAD 09:23
PROVIDERS: ATTEND Internal Medicine
DX: C34.12 Malignant neoplasm of upper lobe, left bronchus or lung (principal)
CPT/HCPCS: 71250; 74176

== ENCOUNTER → 2020-03-06 | Outpatient (CLI) | payer MEDICARE, OTHER ==
--- NOTE | 2020-03-07 09:42 | RADIOLOGY REPORT (SQ) ---
EXAM DESCRIPTION: PET CT SKULL/THIGH IMAGES COMPLETED DATE/TIME: 03/06/2020 3:02 pm REASON FOR STUDY: MALIGNANT NEOPLASM OF UPPER LOBE, LEFT BRONCHUS OR LUNG C34.12 MALIGNANT NEOPLASM OF UPPER LOBE, LEFT BRONCHUS OR PIEDAD COMPARISON: PRIOR PET-CT DATED 11/01/2019, CT CHEST AND ABDOMEN DATED DATED 02/15/2020 RADIONUCLIDE AND DOSE: 9.93 mCi F18 FDG The route of agent administration: Intravenous FASTING BLOOD SUGAR: 94 mg/dl CONTRAST TYPE AND DOSE: No CT contrast given. TECHNIQUE: Blood glucose level was verified. Above dose of FDG was injected intravenously. 2-D seg mented attenuation correction images were obtained from the base of the skull to the midthighs. Nonc ontrast CT images were obtained for attenuation correction and fusion with emission images. CT image s were performed without oral or intravenous contrast and are not sensitive for parenchymal lesions. A series of overlapping emission PET images were obtained. Images reviewed and manipulated [facility] by the radiologist. Images stored on PACS. LIMITATIONS: None. FINDINGS: HEAD AND NECK: No areas of abnormal metabolic activity in the soft tissues of the head and neck. CHEST: The new right axillary lymph node demonstrates an SUV of 4.7 consistent with neoplasm. Widesp read uptake in the right upper and middle lobe. The dominant mass demonstrates an SUV of 8.2. There is abnormal uptake in the right hilum consistent with adenopathy. Smaller nodules on the right and left reveal no abnormal metabolic activity are remain consistent with metastatic disease. ABDOMEN AND PELVIS: No areas of abnormal metabolic activity in the abdomen or pelvis. Expected physi ologic activity is present in the genitourinary system and bowel. PROXIMAL LOWER EXTREMITIES: No areas of abnormal metabolic activity in the soft tissues of the lower extremities. BONES: No abnormal metabolic activity in the visualized skeleton. ADDITIONAL CT FINDINGS: No additional significant findings on the noncontrast CT images. OTHER: No other significant findings. IMPRESSION: Progression of disease when compared to prior PET-CT. The right axillary node [place] an SUV of 4.7 consistent with neoplasm. The dominant mass in the right lung demonstrates an SUV of 8.2. Several of the larger pulmonary nodules demonstrate increased metabolic activity. TECHNICAL DOCUMENTATION: JOB ID: [id number] 2010 [employer] All Rights Reserved Reading location - IP/workstation name: [email or web address]
== END ==
LOC: RAD 09:26
PROVIDERS: ATTEND Internal Medicine
DX: C34.12 Malignant neoplasm of upper lobe, left bronchus or lung (principal)
CPT/HCPCS: 78815; A9552

== ENCOUNTER 2020-04-13 07:35 | Day surgery (SDC) | payer MEDICARE, OTHER ==
[2020-04-10 12:32] LABS: HEMATOCRIT 32.2 % (36.0-47.0); HEMOGLOBIN 10.8 g/dL (12.0-15.5); MEAN CORPUSCULAR HEMOGLOBIN 29.8 pg (27.0-33.4); MEAN CORPUSCULAR HGB CONC 33.4 g/dL (32.0-36.0); MEAN CORPUSCULAR VOLUME 89 fl (80-97); RED CELL DISTRIBUTION WIDTH 14.1 % (11.5-14.0); WHITE BLOOD COUNT 10.6 10^3/uL (4.0-10.5)
[2020-04-10 12:51] LABS: PLATELET COUNT 213 10^3/uL (150-450)
--- NOTE | 2020-04-10 12:55 | RADIOLOGY REPORT (SQ) ---
EXAM DESCRIPTION: CHEST 2 VIEWS IMAGES COMPLETED DATE/TIME: 04/10/2020 12:16 pm REASON FOR STUDY: PRE OP TESTING COMPARISON: 11/10/2019, prior PET-CT dated 03/06/2020 EXAM PARAMETERS: NUMBER OF VIEWS: two views TECHNIQUE: Digital Frontal and Lateral radiographic views of the chest acquired. RADIATION DOSE: NA LIMITATIONS: none FINDINGS: LUNGS AND PLEURA: Numerous bilateral pulmonary nodules. These have increased in size and number from prior exam. No effusion. No pneumothorax. MEDIASTINUM AND HILAR STRUCTURES: No masses or contour abnormalities. HEART AND VASCULAR STRUCTURES: Heart normal size. No evidence for failure. BONES: No acute findings. HARDWARE: None in the chest. OTHER: No other significant finding. IMPRESSION: Too numerous to count bilateral pulmonary nodules consistent with metastatic disease. TECHNICAL DOCUMENTATION: JOB ID: [id number] 2010 [employer]- All Rights Reserved Reading location - IP/workstation name: [email or web address]
[2020-04-10 12:56] LABS: ANION GAP 11 (5-19); BLOOD UREA NITROGEN 34 mg/dL (7-20); CALCIUM 8.6 mg/dL (8.4-10.2); CARBON DIOXIDE 14 mmol/L (22-30); CHLORIDE 104 mmol/L (98-107); GLUCOSE 100 mg/dL (75-110); POTASSIUM 4.9 mmol/L (3.6-5.0)
--- NOTE | 2020-04-10 18:32 | EKG REPORT ---
SEVERITY:- OTHERWISE NORMAL ECG - SINUS RHYTHM VENTRICULAR PREMATURE COMPLEX LOW VOLTAGE IN FRONTAL LEADS : Confirmed by: Jeff Ruiz MD 10-Apr-2020 18:32:23
[~2020-04-13 07:35] MED LIST: CEFAZOLIN 2 GM/D5W RTU 2 GM/50 ML RTUPB IV PRN; DEXMEDETOMIDINE INJ 80 MCG/20 ML VIAL IV ONE; LACTATED RINGERS 1000 ML IV PRN
[2020-04-13] MEDS ORDERED: CEFAZOLIN 2 GM/D5W RTU 2 GM/50 ML RTUPB IV ONE (08:08)
[2020-04-13] MEDS ORDERED: FENTANYL CITRATE INJ/PF 100 MCG/2 ML AMPUL ONE (08:25)
[2020-04-13] MEDS ORDERED: PROPOFOL INJ 200 MG/20 ML VIAL IV ONE (08:25)
[2020-04-13] MEDS ORDERED: MIDAZOLAM 2 MG/2 ML INJ ONE (08:25)
[2020-04-13] MEDS ORDERED: LIDOCAINE 1% INJ-PF (10 MG/ML) 30 ML SDV ONE (09:14)
[2020-04-13] MEDS ORDERED: BUPIVACAINE HCL 0.25 % INJ/PF (2.5 MG/1 ML) 30 ML VIAL ONE (09:14)
[2020-04-13] MEDS ORDERED: FENTANYL CITRATE INJ/PF 100 MCG/2 ML AMPUL IV PRN ×3 (09:36)
[2020-04-13] MEDS ORDERED: MORPHINE SULFATE 10 MG/ML INJ IV PRN (09:36)
[2020-04-13] MEDS ORDERED: DIPHENHYDRAMINE HCL 50 MG/ML VIAL IV PRN (09:36)
[2020-04-13] MEDS ORDERED: ONDANSETRON HCL INJ/PF 4 MG/2 ML SDV IV PRN (09:36)
--- NOTE | 2020-04-13 10:06 | Discharge Summary ---
Discharge Summary (SDC) - Discharge Final Diagnosis: Metastatic lung cancer Date of Surgery: 04/13/20 Discharge Date: 04/13/20 Condition: Stable Treatment or Instructions: Discharge home. Diet as tolerated. Activity: Nonstrenuous. Follow-up with [place] as needed. Prescriptions: Hydrocodone/Acetaminophen [Reynolds 5-325 mg Tablet] 1 tab PO Q6HP PRN #10 tablet PRN Reason: For Pain Referrals: EDU BARAJAS MD [Primary Care Provider] - Respiratory Treatments at Home: Deep Breathing/Coughing, Incentive Spirometer Discharge Activity: Activity As Tolerated, Balance Activity w/Rest Home Care Assistance: None Needed Report the Following to Your Physician Immediately: Shortness of Breath, Nausea, Vomiting, Increase in Pain, Fever over 101 Degrees, Unusual Bleeding
[2020-04-13] MEDS ORDERED: HYDROCODONE/ACETAMINOPHEN 5-325 MG TABLET PO PRN (10:12)
--- NOTE | 2020-04-13 10:12 | Operative Report ---
Nonrecallable Operative Report DATE OF SURGERY: 04/13/20 PREOPERATIVE DIAGNOSIS: metastatic lung cancer POSTOPERATIVE DIAGNOSIS: Same as above OPERATION: 1. Ultrasound-guided central venous puncture. 2. Left internal jugular vein Mediport placement SURGEON: IRSAEL BROWN ANESTHESIA: LMAC TISSUE REMOVED OR ALTERED: None COMPLICATIONS: None apparent ESTIMATED BLOOD LOSS: Minimal PROCEDURE: Drain/implants: Mediport in the left internal jugular vein. Procedure in detail: After informed consent was obtained, the patient was brought to the operating room and laid in the Trendelenburg position. The area of the neck and chest were prepped and draped in a normal sterile fashion. The ultrasound used to identify the left internal jugular vein. It is compressible with normal flow. The internal jugular vein was then cannulated using the supplied access needle. Dark venous, nonpulsatile blood was returned in the syringe. This was done under direct ultrasonic guidance. The wire was then inserted into the vein easily. The wire was confirmed to be within the lumen of the vein using fluoroscopy as well as the ultrasound device. Picture documentation was obtained and placed on the chart. Next, a separate incision was created in the left chest wall to accommodate the Mediport hub. The catheter was then tunneled from the Mediport hub site, to the needle insertion site. The dilator and breakaway sheath were then inserted over the wire under direct fluoroscopic guidance. The wire and dilator were removed, leaving the sheath within the superior vena cava. The catheter was inserted into the sheath. The sheath was cracked and pulled away, leaving the catheter within the SVC. The catheter was pulled back to an appropriate level. The catheter was trimmed to length, and attached to the Mediport hub. The Mediport hub was buried in the pocket. The hub was sutured to the chest wall using 3-0 Vicryl suture. The Mediport was then accessed, aspirated, and flushed with heparinized saline. The subcutaneous tissues were then closed using 3-0 Vicryl suture in simple running fashion. The overlying skin was closed using 4-0 Vicryl Rapide suture in subcuticular fashion. Dressings were placed, and the procedure was concluded. All sponge, instrument, and needle counts were correct x2. Condition: Stable.
--- NOTE | 2020-04-13 11:24 | RADIOLOGY REPORT (SQ) ---
EXAM DESCRIPTION: CHEST SINGLE VIEW IMAGES COMPLETED DATE/TIME: 04/13/2020 10:34 am REASON FOR STUDY: port placement COMPARISON: 04/10/2020 and 02/15/2020 EXAM PARAMETERS: NUMBER OF VIEWS: One view. TECHNIQUE: Single frontal radiographic view of the chest acquired. RADIATION DOSE: NA LIMITATIONS: None. FINDINGS: LUNGS AND PLEURA: Stable pulmonary examination demonstrating innumerable pulmonary nodules with dominant right upper lobe and right perihilar masses. No pneumothorax postprocedure. No pleur al effusion. MEDIASTINUM AND HILAR STRUCTURES: No masses. Contour normal. HEART AND VASCULAR STRUCTURES: Heart normal in size. Normal vasculature. BONES: No acute findings. HARDWARE: Interval placement of a left anterior chest wall port which terminates in the region of the superior vena cava. OTHER: No other significant finding. IMPRESSION: No pneumothorax post port placement; appropriate port positioning. Stable pulmonary exa m. TECHNICAL DOCUMENTATION: JOB ID: [id number] 2010 [employer]- All Rights Reserved Reading location - IP/workstation name: [email or web address]
[2020-04-13 11:29] VITALS: BP 154/81
--- NOTE | 2020-04-14 09:17 | RADIOLOGY REPORT (SQ) ---
EXAM DESCRIPTION: FLUORO/CV PLACEMENT IMAGES COMPLETED DATE/TIME: 04/13/2020 10:23 am REASON FOR STUDY: PORT A CATH C34.90 MALIGNANT NEOPLASM OF UNSP PART OF UNSP BRONCHUS OR L COMPARISON: 04/10/2020 chest film FLUOROSCOPY TIME: 0.3 minutes 1 digital fluoroscopic images saved to PACS. TECHNIQUE: Intra-operative images acquired during surgical procedure to evaluate progress. NUMBER OF IMAGES: Cine fluoroscopic images. LIMITATIONS: None. FINDINGS: Intra procedural imaging and fluoro during placement left permanent central line. Please see the operative report for further details IMPRESSION: IMAGE(S) OBTAINED DURING PROCEDURE. COMMENT: Quality ID [id number]: Final reports for procedures using fluoroscopy that document radiation exp osure indices, or exposure time and number of fluorographic images (if radiation exposure indices are not available) Please consult full operative report of the attending physician for description of the procedure. TECHNICAL DOCUMENTATION: JOB ID: [id number] 2010 [employer]- All Rights Reserved Reading location - IP/workstation name: [email or web address]
== END 2020-04-13 11:25 | disposition home or self-care (01) ==
LOC: OROUT 07:35
PROVIDERS: ATTEND Surgery
DX: C34.90 Malignant neoplasm of unspecified part of unspecified bronchus or lung (principal); C77.3 Secondary and unspecified malignant neoplasm of axilla and upper limb lymph nodes; Z79.899 Other long term (current) drug therapy; I10 Essential (primary) hypertension; M19.90 Unspecified osteoarthritis, unspecified site; Z01.812 Encounter for preprocedural laboratory examination; Z20.822 Contact with and (suspected) exposure to COVID-19; Z86.79 Personal history of other diseases of the circulatory system
CPT/HCPCS: 93005; 36415; 85027; 80048; 71046; 71045; 77001; 93010; 36561; U0003; J2250; J3490; J2704; J0690; J1642; C9803; 532; 87635; C1788; J3010